=== PATIENT | male | born 1930 | race Caucasian/White ===

== ENCOUNTER 2016-10-03 10:07 | Observation (INO) | payer MEDICARE, OTHER ==
[~2016-10-03] VITALS: Ht 180.3 cm; Wt 76.4 kg
[~2016-10-03 10:07] MED LIST: ASPI-1012 PO; ATOR20TA PO; CAR120CD PO; CITA10TA14 PO; COU5 PO; COZ50 PO
[2016-10-03 10:09] VITALS: BP 117/83; RESP 15
--- NOTE | 2016-10-03 10:27 | ED.REPORT ---
HPI-Trauma Minor / Fall Date of Service Oct 03, 2016 ED Provider: Darren Sharpe MD Pt is an 86 year old male with a history of CAD and HTN who presents to the ED with concerns for continued left hip pain after falling into his chair a couple of days ago. Pt reports that he was working in his garage when he fell backwards into his chair, he denies any trauma to his head or loss of consciousness. His family member reports that he tried to "tough it out" and didn't get it checked out. Pt was then unable to get out of bed this morning due to continued hip pain. He reports a recent cough,but no other illness. Nursing Notes Stated Complaint: FALL AT HOME - HIP PAIN Chief Complaint: Multiple Trauma/Fall Nursing Notes Reviewed: Yes Allergies: Coded Allergies: hydromorphone (Verified Allergy, Severe, 01/17/16) lisinopril (Verified Allergy, Mild, cough, 01/17/16) Scheduled Aspirin-Expunged Drug, Do Not Renew! (Ecotrin-Expunged Drug, Do Not Renew!) 81 Mg Tabec 81 MG PO DAILY Atorvastatin (Lipitor) 20 Mg Tablet 40 MG PO HS Diltiazem-Expunged Drug, Do Not Renew! (Diltiazem CD-Expunged Drug, Do Not Renew !) 120 Mg Capsule 120 MG PO DAILY 24 HOUR DOSAGE FORM Losartan-Expunged Drug, Do Not Renew! (Losartan-Expunged Drug, Do Not Renew!) 50 Mg Tablet 50 MG PO DAILY Warfarin Inactive Drug Do Not Use (Coumadin Inactive Drug Do Not Use) 5 Mg Tablet 5 MG PO 17 1700 (5 PM) DAILY Miscellaneous Medications Citalopram-Expunged Drug, Do Not Renew! (Citalopram-Expunged Drug, Do Not Renew! ) 10 Mg Tablet 10 MG PO General Time Seen by MD: 10:20 Chief Complaint Fall Hx Obtained From: Patient, Spouse, Daughter Arrived By: Walk-in Onset Occurred: Yesterday Symptom Duration: Since onset Location: Hip left Quality: Painful Severity: Current: Mild Severity: Maximum: Moderate Similar Sx Previous: Yes Past Medical History Past Medical History Notes: PCP: Dr. Murillo Past Medical History Reports: Cancer, Coronary artery disease, Hypertension Reports: Atrial fibrillation, Depression Past Surgical History CABG Shoulder surgery Reports: Pacemaker insertion Smoking History Former Smoker Social History Alcohol Use: "Social" Drug Use: Denies drug use Other Social History: Good social support, Ambulatory Status Independent Review of Systems Constitutional: Denies: Chills, Fever, Malaise, Weakness - generalized Respiratory: Denies: Non-productive cough, Shortness of breath, Wheezing Musculoskeletal: Reports: Extremity pain, Joint pain, Denies: Back pain, Neck pain Skin: Denies Bruising, Denies Diaphoresis Neurologic: Denies: Change LOC, Dizziness, Headache, Syncope, Weakness Complete sys rev & neg: except as marked. Physical Exam Initial Vital Signs Vital Signs (First) Date Time Temp Pulse Resp B/P Pulse Ox O2 Delivery O2 Flow Rate FiO2 10/03/16 10:09 37.2 15 117/83 10/03/16 11:04 71 96 Room Air Initial VS: Reviewed Head / Eyes: Atraumatic, Normocephalic, PERRL ENT: Mucous membranes moist, Conjunctiva normal, No scleral icterus Respiratory: Breath sounds normal, Clear to auscultation, No respiratory distress Cardiovascular: Regular rate & rhythm, Heart sounds normal, Intact distal pulses Abdomen / GI: Soft, Non-tender, No guarding, No rebound, No distention Skin: Warm, Dry, No cyanosis Neurologic: Alert, Oriented, Nonfocal Psychiatric: Mood/affect normal, Behavior normal, Normal thought content General/Constitutional: Awake, Alert, Well appearing, Well nourished, Cooperative Neck: Atraumatic, Supple, Full range of motion Lower Extremity / Pelvis / MS: No deformity, Neurologic intact, Vascular intact , Pelvis stable Tender about the left sacral iliac joint Interpretation & Diagnostics Lab Results Interpretation Result Diagram: 10/03/16 1127 10/03/16 1127 Test 10/03/16 11:27 10/03/16 14:40 White Blood Count 5.0th/mm3 (3.8-10.1) Red Blood Count 4.07mil/mm3 (4.40-5.80) Hemoglobin 13.0g/dL (13.8-17.2) Hematocrit 38.7% (41.0-50.0) Mean Corpuscular Volume 95.1fL (81-100) Mean Corpuscular Hemoglobin 31.9pg (27.0-35.0) Mean Corpuscular Hemoglobin Concent 33.6% (32.0-37.0) Red Cell Distribution Width 14.1% (12.3-15.4) Platelet Count 99bil/L (150-400) Neutrophils (%) (Auto) 63.2% (40-74) Lymphocytes (%) (Auto) 29.8% (14-46) Monocytes (%) (Auto) 6.6% (4-12) Eosinophils (%) (Auto) 0% (0-5) Basophils (%) (Auto) 0.2% (0-3) Prothrombin Time 18.7sec (8.1-12.5) Prothromb Time International Ratio 1.73ratio Sodium Level 133mEq/L (134-144) Potassium Level 4.3mEq/L (3.5-5.2) Chloride Level 98mEq/L (97-108) Carbon Dioxide Level 23mmol/L (18-29) Blood Urea Nitrogen 24mg/dL (8-27) Creatinine 1.20mg/dL (0.76-1.27) Estimat Glomerular Filtration Rate 61mL/min (>59) Glucose Level 113mg/dL (60-99) Calcium Level 8.5mg/dL (8.5-10.1) Total Bilirubin 0.3mg/dL (0.0-1.2) Aspartate Amino Transf (AST/SGOT) 43U/L (0-50) Alanine Aminotransferase (ALT/SGPT) 32U/L (0-44) Alkaline Phosphatase 77U/L (25-160) Total Protein 6.9g/dL (6.4-8.4) Albumin 3.2g/dL (3.4-5.0) Hold Olguin Top Tube Received (Received) ECG Interpretation ECG Interpretation: atrual-sensed ventricular paced rhythm - 70 Unchanged from prior Time: 11:19 Interpreted by: ED physician X-Ray Chest Interpretation Chest Xray Interpretation: IMPRESSION: 1. Probable atelectasis or scarring the left lung base. No definite acute cardiopulmonary disease. Dictated by: Levi Lang M.D. on 10/03/2016 at 11:51 Interpretation / Wet Read by: Interpret - Radiologist X-Ray Interpretation Xray Interpretation: IMPRESSION: 1. No definite displaced fracture. 2. Indistinct sclerotic osseous lesions are present possible metastatic disease. Findings discussed with Dr. Sharpe on 10/03/16 at 11:45 AM. Dictated by: Levi Lang M.D. on 10/03/2016 at 11:49 Study Performed: Sacrum and Coccyx Interpretation / Wet Read by: Interpret - Radiologist, Néstor w radiologist Xray Interpretation: IMPRESSION: 1. No fracture or subluxation. 2. Heterogeneous appearance of the visualized osseous structures with indistinct sclerotic regions. Although the findings may represent heterogeneous osteopenia, an infiltrative process such as metastatic disease may have this appearance. Recommend correlation clinically and further evaluation with bone scan if indicated. Findings discussed with Dr. Sharpe on 10/03/16 at 11:45 AM. Dictated by: Levi Lang M.D. on 10/03/2016 at 11:47 X-Ray Ordered: Pelvis Interpretation / Wet Read by: Interpret - Radiologist, Néstor w radiologist CT Head Interpretation IMPRESSION: 1. Region of hypoattenuation involving the left temporal lobe within the middle cranial fossa. The finding is suggestive of nonspecific edema in the differential includes an underlying mass lesion or encephalitis among other etiologies. Given patient's history of prostate cancer as well as a pacemaker, recommend further evaluation with a contrast enhanced head CT if clinically indicated. Findings discussed with Dr. Sharpe on 10/03/16 at 2:35 PM. Dictated by: Levi Lang M.D. on 10/03/2016 at 14:41 Interpretation / Wet Read by: Interpret - Radiologist CT Abd / Pelvis Interpretation IMPRESSION: 1. No definite acute traumatic abnormality identified in the abdomen or pelvis. 2. Nonspecific scattered sclerotic lesions demonstrated in the bony pelvis as described. The findings may reflect heterogeneous demineralization related to osteopenia as well as bone islands but given patient's history of prostate cancer may also reflect blastic metastatic disease. Recommend followup evaluation with a bone scan. 3. No evidence of intraperitoneal metastatic disease in the abdomen or pelvis. 4. Bilateral sclerosis of the femoral heads. The findings are nonspecific but raise the possibility of avascular necrosis. No evidence of articular surface collapse. 5. Cholelithiasis with mild gallbladder wall thickening. The findings may represent developing cholecystitis in the appropriate clinical context. Dictated by: Levi Lang M.D. on 10/03/2016 at 13:20 Study type: Abdom CT oral contrast Interpretation / Wet Read by: Interpret - Radiologist Re-Eval/Medical Decision Source of Hx: Old records Re-Evaluation/Progress #1: Time of Eval: 11:46 Re-Evaluation/Progress Note: Pt is rechecked and informed of his x-ray results and the plan to obtain a CT scan of his hip at this time. He understands and agrees, all questions are addressed. Re-Evaluation/Progress #2: Time of Eval: 13:05 Re-Evaluation/Progress Note: Pt's family report that they are noticing that his speech is mildly slurred. Full NIH score conducted - 0. Consultation : Referral / Consult Name: Immanuel Thomas MD Consulted With: Hospitalist Call Returned at: 14:30 Architectural Practice Manager: Will see patient, Agrees with plan, Accepts admit Counseled Regarding: Diagnosis, Lab results, Need for admission Discharge & Departure Impression: Primary Impression: Bone lesion Additional Impressions: Lumbosacral pain Brain lesion Disposition: ADMITTED TO HOSPITAL Discharge Condition All VS Reviewed: Yes Condition: Stable Referrals: Gonzalez Murillo DO (PCP) Scribe Attestation Portions of this note were transcribed by Josefa Sadler. I, Dr. Sharpe personally performed the history, physical exam and medical decision-making; I reviewed and confirmed the accuracy of the information in the transcribed note. Signed by: Josefa Boyle, 10/03/2016 [id number] copies to: Gonzalez Murillo Kirk H MD Oct 03, 2016 10:27 SHANA SADLER Oct 03, 2016 10:32
[2016-10-03 11:04] VITALS: PULSE 71; O2SAT 96
[2016-10-03 11:38] LABS: BASOPHILS % (AUTO) 0.2 % (0-3); EOSINOPHILS % (AUTO) 0 % (0-5); MONOCYTES % (AUTO) 6.6 % (4-12); Mean Corpuscular Hemoglobin 31.9 pg (27.0-35.0); Mean Corpuscular Volume 95.1 fL (81-100); NEUTROPHILS % (AUTO) 63.2 % (40-74); Platelet Count 99 bil/L (150-400)
--- NOTE | 2016-10-03 11:51 | DRSVH ---
PROCEDURE: X-RAY PELVIS, ONE OR TWO VIEWS ([id number]) INDICATIONS: trauma TECHNIQUE: Single view of the pelvis acquired. COMPARISON: [facility], CR, XR SACRUM AND COCCYX 3VW, 10/03/2016, 10:39. FINDINGS: Bones: No fractures or dislocations. There is heterogeneous appearance of the visualized osseous st ructures with indistinct relatively sclerotic regions. Soft tissues: Visualized bowel gas pattern is normal. No suspicious soft tissue calcifications. IMPRESSION: 1. No fracture or subluxation. 2. Heterogeneous appearance of the visualized osseous structures with indistinct sclerotic regions. Although the findings may represent heterogeneous osteopenia, an infiltrative process such as metast atic disease may have this appearance. Recommend correlation clinically and further evaluation with bone scan if indicated. Findings discussed with Dr. Sharpe on 10/03/16 at 11:45 AM. Dictated by: Levi Lang M.D. on 10/03/2016 at 11:47 Approved by: Levi Lang M.D. on 10/03/2016 at 11:47
--- NOTE | 2016-10-03 11:53 | DRSVH ---
PROCEDURE: X-RAY SACRUM AND COCCYX, MINIMUM THREE VIEWS ([id number]) INDICATIONS: trauma TECHNIQUE: 3 views of the sacrum and coccyx acquired. COMPARISON: [facility], CR, XR PELVIS 1 OR 2VW, 10/03/2016, 10:39. FINDINGS: Bones: No definite fractures or dislocations. There a few scattered indistinct sclerotic lesions in cluding within the inferior pubic rami bilaterally. Visualized lumbar spine demonstrates anterolisth esis of the presumed L4-5 level. Soft tissues: Visualized bowel gas pattern is normal. IMPRESSION: 1. No definite displaced fracture. 2. Indistinct sclerotic osseous lesions are present possible metastatic disease. Findings discussed with Dr. Sharpe on 10/03/16 at 11:45 AM. Dictated by: Levi Lang M.D. on 10/03/2016 at 11:49 Approved by: Levi Lang M.D. on 10/03/2016 at 11:49
--- NOTE | 2016-10-03 11:55 | DRSVH ---
PROCEDURE: X-RAY CHEST ONE VIEW, PORTABLE ([id number]) INDICATIONS: trauma TECHNIQUE: One view of the chest was acquired. COMPARISON: [facility], CR, XR CHEST 1VW (PORTABLE), 01/17/2016, 15:01. FINDINGS: Surgical changes and devices: Left chest wall dual-lead pacemaker are stable in position. Postsurgic al changes are again demonstrated in the mediastinum consistent with prior CABG and prosthetic valve placement. Lungs and pleura: No pleural effusions or pneumothorax. There is mild linear scarring or atelectasi s within the left lung base. No acute consolidation. Mediastinum: Mediastinal contours appear normal. Heart size is normal. Bones and chest wall: No suspicious bony lesions. Overlying soft tissues appear unremarkable. IMPRESSION: 1. Probable atelectasis or scarring the left lung base. No definite acute cardiopulmonary disease. Dictated by: Levi Lang M.D. on 10/03/2016 at 11:51 Approved by: Levi Lang M.D. on 10/03/2016 at 11:51
[2016-10-03 12:18] LABS: INR 1.73 ratio
--- NOTE | 2016-10-03 13:21 | DRSVH ---
PROCEDURE: CT ABDOMEN AND PELVIS WITH CONTRAST TRAUMA ([id number]) INDICATIONS: Left lumbosacral pain status post fall. Patient also with history of prostate cancer w ith possible sclerotic lesions on x-ray. TECHNIQUE: After the administration of intravenous contrast, 5 mm thick sections acquired from the diaphragms to the symphysis. 5 mm thick coronal and sagittal reformats were acquired. Optional 10-minute delayed imaging may be performed from the kidneys to the bladder. For radiation dose reduction, the followi ng was used: automated exposure control, adjustment of mA and/or kV according to patient size. COMPARISON: [facility], CR, XR PELVIS 1 OR 2VW, 10/03/2016, 10:39. FINDINGS: Image quality: Excellent. ABDOMEN: Lung bases: There is mild dependent atelectasis. Heart size is normal. There are pacemaker leads de monstrated extending into the right atrium and right ventricle. No pericardial effusion. Inferior r ibs are intact. No basal pleural effusions or pneumothorax. Solid organs: No focal hepatic lesions identified. The spleen is enlarged, measuring up to 15.8 cm. No hepatic or splenic lacerations. There is a large peripherally calcified gallstone within the ga llbladder measuring up to 2.5 cm. There is mild gallbladder wall thickening but no pericholecystic f luid. Biliary system is non-dilated. There is mild fatty atrophy of the pancreas. No adrenal hemat omas. Both kidneys enhance normally, without hydronephrosis or lacerations. There bilateral renal c ysts. Peritoneum and bowel: No free fluid or air. Small and large bowel loops demonstrate normal wall thi ckness and caliber. There is chronic diverticulosis without acute diverticulitis. Nodes and vessels: No retroperitoneal or mesenteric adenopathy. Aorta and inferior vena cava are no rmal in size and enhancement. Miscellaneous: No ventral hernias. PELVIS: Genitourinary: Bladder wall thickness is normal. There is heterogeneous enlargement of the prostate . No extraprostatic mass extension identified. Miscellaneous: There is small fat containing bilateral inguinal hernias. No inguinal adenopathy. Bones: There is osteopenia. Pelvic ring and hip joints appear intact. No vertebral compression fra ctures. There is grade 1 anterolisthesis of L4 on L5 without pars defects. There is a small ovoid sclerotic focus within the right acetabulum measuring up to 0.7 cm which is nonspecific but suggestiv e of a bone island. A subtle or a focus within the right ischium posteriorly measuring up to 0.7 cm and is also nonspecific. There are small areas of indistinct sclerosis within the ischial bones bilat erally along the posterior inferior pubic rami. There is increased sclerosis bilaterally within the femoral heads without subcortical curvilinear scl erotic lines or areas of articular surface collapse. IMPRESSION: 1. No definite acute traumatic abnormality identified in the abdomen or pelvis. 2. Nonspecific scattered sclerotic lesions demonstrated in the bony pelvis as described. The findin gs may reflect heterogeneous demineralization related to osteopenia as well as bone islands but given patient's history of prostate cancer may also reflect blastic metastatic disease. Recommend followu p evaluation with a bone scan. 3. No evidence of intraperitoneal metastatic disease in the abdomen or pelvis. 4. Bilateral sclerosis of the femoral heads. The findings are nonspecific but raise the possibility of avascular necrosis. No evidence of articular surface collapse. 5. Cholelithiasis with mild gallbladder wall thickening. The findings may represent developing chol ecystitis in the appropriate clinical context. Dictated by: Levi Lang M.D. on 10/03/2016 at 13:20 Approved by: Levi Lang M.D. on 10/03/2016 at 13:20
[2016-10-03] MEDS ORDERED: Ondansetron 2 mg/mL 2 mL Inj IVPUSH PRN (14:35)
[2016-10-03] MEDS ORDERED: Alum-Mag Hydrox-Simeth 30 mL Suspension PO PRN (14:35)
--- NOTE | 2016-10-03 14:43 | DRSVH ---
PROCEDURE: CT BRAIN WITHOUT CONTRAST ([id number]) INDICATIONS: slurred speech TECHNIQUE: Noncontrast 4.5 mm thick angled axial sections acquired from the foramen magnum to the vertex, with c oronal reformats. COMPARISON: [facility], CT, BRAIN W/O CONTRAST, 12/21/2013, 17:13. FINDINGS: Image quality: Excellent. CSF spaces: Basal cisterns are patent. No extra-axial fluid collections. Ventricles are normal in size and shape. Brain: There is mild residual hyperdensity of the vessels secondary to recent intravenous contrast ad ministration. No hematoma collections or mass effect. There is a region of cortical and subcortical hypoattenuation involving the left temporal lobe within the middle cranial fossa. Skull and face: Calvarium and visualized facial bones appear intact, without suspicious lesions. Sinuses: Visualized sinuses and mastoids are clear. IMPRESSION: 1. Region of hypoattenuation involving the left temporal lobe within the middle cranial fossa. The finding is suggestive of nonspecific edema in the differential includes an underlying mass lesion or encephalitis among other etiologies. Given patient's history of prostate cancer as well as a pacemak er, recommend further evaluation with a contrast enhanced head CT if clinically indicated. Findings discussed with Dr. Sharpe on 10/03/16 at 2:35 PM. Dictated by: Levi Lang M.D. on 10/03/2016 at 14:41 Approved by: Levi Lang M.D. on 10/03/2016 at 14:41
[2016-10-03] MEDS ORDERED: Polyethylene Glycol (PEG) 17 Gm Powder PO PRN (15:00)
[2016-10-03 15:27] VITALS: BP 127/65; PULSE 79; RESP 20
[2016-10-03 15:29] LABS: APPEARANCE,URINE CLEAR (CLEAR,HAZY); COLOR,URINE YELLOW (YELLOW); OCCULT BLOOD,URINE SMALL (NEGATIVE); UROBILINOGEN,URINE NORMAL (NORMAL)
--- NOTE | 2016-10-03 15:29 | PCM.PHAPRO ---
Progress Date of Service: Oct 03, 2016 Warfarin Management Per Pharmacy: Indication: Stroke prophylaxis as patient has atrial fibrillation ([id number]- Vasc = 3) Goal INR: 2-3 Home Dose: Warfarin 5 mg PO daily? RN to clarify Labs: Hct: 38.7 Plt: 99 INR: 1.73 Drug Interactions: None Antiplatelets: ASA 81 mg PO daily, Celexa 10 mg PO daily (antiplatelet) Recommendation: Warfarin 6 mg PO x 1 tonight at 1700 Pharmacy to continue to monitor for signs/symptoms of bleeding. Thank You, Laura Joshua, Pharm D. Laura Joshua Oct 03, 2016 15:29
[2016-10-03 15:57] VITALS: BP 129/66; PULSE 67; RESP 18; O2SAT 95
[2016-10-03] MEDS ORDERED: LOSA50TA37 PO (16:37)
[2016-10-03] MEDS ORDERED: DILT-17 PO (16:37)
[2016-10-03] MEDS ORDERED: OFLO5DRO9 LEFT_EYE (16:37)
[2016-10-03] MEDS ORDERED: DILT120C52 PO (16:37)
[2016-10-03] MEDS ORDERED: ASPI-973 PO (16:37)
[2016-10-03] MEDS ORDERED: WARF5TAB7 PO (16:37)
[2016-10-03] MEDS ORDERED: CITA10TA9 PO (16:37)
--- NOTE | 2016-10-03 16:52 | PCM.HPMED ---
Subjective Date of Service Oct 03, 2016 Primary Provider: Admitting Physician: Immanuel Thomas MD Primary Care Physician: Gonzalez Murillo DO Attending Physician: Immanuel Thomas MD Admit Status: From the Emergency Department Chief Complaint: hip pain after fall History of Present Illness: 86 year old male with h/o CAD, HTN, a fib, presented to ED with c/o worsening left hip pain. As per family member, he fell into his chair before two days and then was complaiing of left hip which was mild until this morning while working in garage he again fell backward into his chair. He denies any trauma to his head or loss of consciousness. As per family members it was difficult for him to get up from the floor. He also reports of recent cough but denies fever, chest pain, chills. He also had difficulty in walking because of balance issues after fall. In ED, he was afebrile, normotensive, saturating 95% on room air. He underwent CT brain which revealed "hypoattenuation involving the left temporal lobe. CT pelvis revealed non specific scattered lesions in the bony pelvis. Pt seen and examined bed side. He is not in acute distress. c/o left hip pain. Denies chest pain, shortness of breath. Allergies Coded Allergies: hydromorphone (Verified Allergy, Severe, 01/17/16) lisinopril (Verified Allergy, Mild, cough, 01/17/16) PMH Coronary artery disease, Hypertension Atrial fibrillation, Depression Surgical History CABG Pacemaker insertion Shoulder surgery Social History Hx Alcohol Use: Yes (occasionally) Hx Substance Use: No Smoking Status: Former Smoker Exam Vital Signs Vital Sign - Last Date Time Temp Pulse Resp B/P Pulse Ox O2 Delivery O2 Flow Rate FiO2 10/03/16 11:04 71 96 Room Air 10/03/16 10:09 37.2 15 117/83 Exam General/Constitutional: Awake, Alert, Well appearing, Well nourished, Cooperative Head / Eyes: Atraumatic, Normocephalic, PERRL ENT: Mucous membranes moist, Conjunctiva normal, No scleral icterus Neck: Atraumatic, Supple, Full range of motion Respiratory: Breath sounds normal, Clear to auscultation, No respiratory distress Cardiovascular: Regular rate & rhythm, Heart sounds normal, Intact distal pulses Abdomen / GI: Soft, Non-tender, No guarding, No rebound, No distention Skin: Warm, Dry, No cyanosis Neurologic: Alert, Oriented, Nonfocal. Psychiatric: Mood/affect normal, Behavior normal, Normal thought content Lower Extremity / Pelvis / MS: No deformity, Neurologic intact, Vascular intact. Left sacro-iliac tenderness Lab and Diagnostics Result Diagram: 10/03/16 1127 10/03/16 1127 X-Rays, CTs and MRIs XR pelvis (10/03/2016): 1. No fracture or subluxation. 2. Heterogeneous appearance of the visualized osseous structures with indistinct sclerotic regions. Although the findings may represent heterogeneous osteopenia, an infiltrative process such as metastatic disease may have this appearance. Recommend correlation clinically and further evaluation with bone scan if indicated. CT Brain (10/03/2016): 1. Region of hypoattenuation involving the left temporal lobe within the middle cranial fossa. The finding is suggestive of nonspecific edema in the differential includes an underlying mass lesion or encephalitis among other etiologies. Given patient's history of prostate cancer as well as a pacemaker, recommend further evaluation with a contrast enhanced head CT if clinically indicated. Chest X-ray (10/03/2016): Probable atelectasis or scarring the left lung base. No definite acute cardiopulmonary disease. CT Pelvis (10/03/2016): IMPRESSION: 1. No definite acute traumatic abnormality identified in the abdomen or pelvis. 2. Nonspecific scattered sclerotic lesions demonstrated in the bony pelvis as described. The findings may reflect heterogeneous demineralization related to osteopenia as well as bone islands but given patient's history of prostate cancer may also reflect blastic metastatic disease. Recommend followup evaluation with a bone scan. 3. No evidence of intraperitoneal metastatic disease in the abdomen or pelvis. 4. Bilateral sclerosis of the femoral heads. The findings are nonspecific but raise the possibility of avascular necrosis. No evidence of articular surface collapse. 5. Cholelithiasis with mild gallbladder wall thickening. The findings may represent developing cholecystitis in the appropriate clinical context. Assessment & Plan 86 year male with h/o HTN, A fib on coumadin, CAD presented with left hip pain and balance issues after fall found to have non specific sclerotic lesions in pelvis and left temporal lesion. s/p fall - No evidence of fractures on CT scan - CT pelvis: non specific sclerotic pelvic lesions - PET bone scan to rule to metastasis as he has history of prostate cancer. This can't be done as inpatient. ? Stroke - balance issues can be brain stem stroke - MRI is contraindicated due to pacemaker implantation - Will do CT brain with contrast tomorrow as to avoid giving contrast again as he already received contrast today for CT pelvis - Physical therapy Hypertension - Will controlled - Will hold antihypertensives in setting of possible stroke. Atrial fibrillation - on coumadin - on [id number] mg - Will resume it as per INR - Dose to be adjusted by pharmacist GI ppx: Not needed. Eating oral diet DVT ppx: on coumadin Status: To be admitted as an observation status due to likely discharge from the hospital within two days. GI Prophylaxis: Not indicated VTE Prophylaxis: Theraputic Anticoag with Warfarin Resuscitation Status: CPR: Attempt Resuscitation Immanuel Thomas MD Oct 03, 2016 14:57
--- NOTE | 2016-10-03 17:45 | NUR ---
Admit to [facility] Patient arrived to floor on ER [facility], was transferred over to hospital bed with slideboard and 3 person assist. C/o pain with movement, mainly on Left side. Declined pain medications. Alert and oriented, [place] with hearing aids in place. Unable to sit on edge of bed without assistance. [place] locked. Using urinal. [place] alarm in place-Hx of falls. Will continue to monitor.
[2016-10-03] MEDS: Diltiazem CD 120 mg ER24 Capsule PO SCH (18:21)
--- NOTE | 2016-10-03 19:29 | NUR ---
URINARY RETENTION Only able to void 50ml in urinal, PVR showed > 460ml Received order to straight cath x1 and wait to see if patient could void on his own. Report passed onto next shift nurse.
[2016-10-03 21:30] VITALS: BP 124/65; PULSE 69; RESP 18; O2SAT 97
--- NOTE | 2016-10-04 00:16 | NUR ---
; voided 125cc per urinal at approx. 2100.
--- NOTE | 2016-10-04 03:48 | NUR ---
; voided 600cc per urinal.
[2016-10-04 06:15] VITALS: BP 126/56; PULSE 71; RESP 16; O2SAT 94
[2016-10-04 07:53] LABS: Mean Corpuscular Hemoglobin 31.7 pg (27.0-35.0); Mean Corpuscular Volume 94.8 fL (81-100)
--- NOTE | 2016-10-04 09:06 | DRSVH ---
PROCEDURE: CT BRAIN WITH CONTRAST INDICATIONS: brain lesion, pacemaker in place TECHNIQUE: 4.5 mm thick angled axial sections acquired from the foramen magnum to the vertex after the administr ation of intravenous contrast, with coronal reformats. COMPARISON: [facility], MR, STROKE PROTOCOL (PNL), 12/22/2013, 12:30. [facility], CR, XR CHEST 1VW (PORTABLE), 10/03/2016, 10:39. [facility], CT, CT BRAIN WO CON, , 14:15. FINDINGS: Image quality: Excellent. CSF Spaces: Basal cisterns are patent. No extra-axial fluid collections. Ventricles are normal in size and shape. Brain: No midline shift. No intracranial bleeds or new masses. At the left parafalcine posterior f rontal convexity region (series 4 image 27) a calcified structure previously identified by MR scannin g 12/22/13 is again seen without interchange agent time considering differences in technique. Additionally, a homogeneously enhancing presumed meningioma at the left posterior cranial fossa dorsal to the masto id air cell region is again noted, also present on prior MR scanning, and also without appreciable ch geno from the prior 2013 MRI. No abnormal intracranial enhancement or abnormal reduced enhancement, otherwise.. Hammonds-white interface appears normal. Skull and face: Calvarium and visualized facial bones appear intact, without suspicious lesions. Sinuses: Visualized sinuses and mastoids are clear. IMPRESSION: The prior noncontrast CT scanning head raise concern for presence of left temporal brain parenchymal hypoattenuation as can be seen in the setting of encephalitis and some strokes, and also conceivably associated with an infiltrative neoplasm. However, currently back area of the brain pare nchyma appears entirely normal. The prior MRI from December 2013 that identified to presumed meningiomas, again seen by this study witho ut change in size over time. One is predominantly calcified and at the left parafalcine posterior fr ontal convexity almost at the midline, almost at the skull vertex. The second is located at the left posterior cranial fossa producing a small degree of mass effect against the lateral border of the le ft mid cerebellum. Prior MR scanning was possible in 2013 presumably due to absence of the currently present a cardiac p acemaking device and leads. Dictated by: Janak Kaur M.D. on 10/04/2016 at 9:05 Approved by: Janak Kaur M.D. on 10/04/2016 at 9:05
[2016-10-04] MEDS: Diltiazem CD 120 mg ER24 Capsule PO SCH (09:15)
--- NOTE | 2016-10-04 09:49 | NUR ---
Evaluation completed. Please go to "Notes" then click on "Assessments and Notes" (bottom left corner of screen). Then select appropriate discipline tab on top of screen.
[2016-10-04 10:39] LABS: INR 1.61 ratio
[2016-10-04 10:49] VITALS: BP 98/60; PULSE 70; RESP 18; O2SAT 96
--- NOTE | 2016-10-04 11:03 | PCM.PNMED ---
Subjective Date of Service Oct 04, 2016 Exam Vital Signs Vital Sign - Last Date Time Temp Pulse Resp B/P Pulse Ox O2 Delivery O2 Flow Rate FiO2 10/04/16 06:15 37.7 71 16 126/56 94 Room Air Intake and Output 10/03/16 10/03/16 10/04/16 Cumulative From/Thru 15:00 23:00 07:00 10/03/16 10:09 - 10/04/16 06:40 Intake Total 120 ml 600 ml 720 ml Output Total 270 ml 725 ml 995 ml Balance -150 ml -125 ml -275 ml Intake Oral 120 ml 600 ml 720 ml Output Urine Total 270 ml 725 ml 995 ml Exam Constitutional: Elderly man in no acute distress sitting in chair by bedside. Head: Normocephalic atraumatic Chest: Clear to auscultation Cor: Regular rate and rhythm S1-S2 Abdomen: Soft nontender bowel sounds present Extremities: No pedal edema no tenderness to palpation over the back of his left hip. IVs and Medications Medications Reviewed: Medications were reviewed in detail Lab and Diagnostics Result Diagram: 10/04/1633 10/04/1633 X-Rays, CTs and MRIs XR pelvis (10/03/2016): 1. No fracture or subluxation. 2. Heterogeneous appearance of the visualized osseous structures with indistinct sclerotic regions. Although the findings may represent heterogeneous osteopenia, an infiltrative process such as metastatic disease may have this appearance. Recommend correlation clinically and further evaluation with bone scan if indicated. CT Brain (10/03/2016): 1. Region of hypoattenuation involving the left temporal lobe within the middle cranial fossa. The finding is suggestive of nonspecific edema in the differential includes an underlying mass lesion or encephalitis among other etiologies. Given patient's history of prostate cancer as well as a pacemaker, recommend further evaluation with a contrast enhanced head CT if clinically indicated. Chest X-ray (10/03/2016): Probable atelectasis or scarring the left lung base. No definite acute cardiopulmonary disease. CT Pelvis (10/03/2016): IMPRESSION: 1. No definite acute traumatic abnormality identified in the abdomen or pelvis. 2. Nonspecific scattered sclerotic lesions demonstrated in the bony pelvis as described. The findings may reflect heterogeneous demineralization related to osteopenia as well as bone islands but given patient's history of prostate cancer may also reflect blastic metastatic disease. Recommend followup evaluation with a bone scan. 3. No evidence of intraperitoneal metastatic disease in the abdomen or pelvis. 4. Bilateral sclerosis of the femoral heads. The findings are nonspecific but raise the possibility of avascular necrosis. No evidence of articular surface collapse. 5. Cholelithiasis with mild gallbladder wall thickening. The findings may represent developing cholecystitis in the appropriate clinical context.Patient Name: ANCA ZUNIGA MR#: [id number] Location: [facility] [place] Ordering Phys: Immanuel Thomas MD Date of Service: 10/04/16 0800 PROCEDURE: CT BRAIN WITH CONTRAST INDICATIONS: brain lesion, pacemaker in place TECHNIQUE: 4.5 mm thick angled axial sections acquired from the foramen magnum to the vertex after the administration of intravenous contrast, with coronal reformats. COMPARISON: [facility], MR, STROKE PROTOCOL (PNL), 12/22/2013, 12: 30. [facility], CR, XR CHEST 1VW (PORTABLE), 10/03/2016, 10:39. [facility], CT, CT BRAIN WO CON, 10/03/2016, 14:15. FINDINGS: Image quality: Excellent. CSF Spaces: Basal cisterns are patent. No extra-axial fluid collections. Ventricles are normal in size and shape. Brain: No midline shift. No intracranial bleeds or new masses. At the left parafalcine posterior frontal convexity region (series 4 image 27) a calcified structure previously identified by MR scanning 12/22/13 is again seen without change management specialist time considering differences in technique. Additionally, a homogeneously enhancing presumed meningioma at the left posterior cranial fossa dorsal to the mastoid air cell region is again noted, also present on prior MR scanning, and also without appreciable change from the prior 2014 MRI. No abnormal intracranial enhancement or abnormal reduced enhancement, otherwise.. Hammonds-white interface appears normal. Skull and face: Calvarium and visualized facial bones appear intact, without suspicious lesions. Sinuses: Visualized sinuses and mastoids are clear. IMPRESSION: The prior noncontrast CT scanning head raise concern for presence of left temporal brain parenchymal hypoattenuation as can be seen in the setting of encephalitis and some strokes, and also conceivably associated with an infiltrative neoplasm. However, currently back area of the brain parenchyma appears entirely normal. The prior MRI from December 2013 that identified to presumed meningiomas, again seen by this study without change in size over time. One is predominantly calcified and at the left parafalcine posterior frontal convexity almost at the midline, almost at the skull vertex. The second is located at the left posterior cranial fossa producing a small degree of mass effect against the lateral border of the left mid cerebellum. Prior MR scanning was possible in 2013 presumably due to absence of the currently present a cardiac pacemaking device and leads. Dictated by: Janak Kaur M.D. on 10/04/2016 at 9:05 Approved by: Janak Kaur M.D. on 10/04/2016 at 9:05 Assessment & Plan 86 year male with h/o HTN, A fib on coumadin, CAD presented with left hip pain and balance issues after fall found to have non specific sclerotic lesions in pelvis and left temporal lesion. s/p fall - No evidence of fractures on CT scan - CT pelvis: non specific sclerotic pelvic lesions - PET bone scan to rule to metastasis as he has history of prostate cancer. This can't be done as inpatient. -We will proceed with checking a bone scan to further investigate - Check PSA given past history of prostate carcinoma -Continue with physical therapy ? Stroke - balance issues can be brain stem stroke - MRI is contraindicated due to pacemaker implantation - Will do CT brain with contrast tomorrow on October 04 as to avoid giving contrast again as he already received contrast today for CT pelvis -CT of brain with contrast was obtained today October 04 and see attached report : IMPRESSION: The prior noncontrast CT scanning head raise concern for presence of left temporal brain parenchymal hypoattenuation as can be seen in the setting of encephalitis and some strokes, and also conceivably associated with an infiltrative neoplasm. However, currently back area of the brain parenchyma appears entirely normal. The prior MRI from December 2013 that identified to presumed meningiomas, again seen by this study without change in size over time. One is predominantly calcified and at the left parafalcine posterior frontal convexity almost at the midline, almost at the skull vertex. The second is located at the left posterior cranial fossa producing a small degree of mass effect against the lateral border of the left mid cerebellum. Prior MR scanning was possible in 2013 presumably due to absence of the currently present a cardiac pacemaking device and leads. Dictated by: Janak Kaur M.D. on 10/04/2016 at 9:05 Approved by: Janak Kaur M.D. on 10/04/2016 at 9:05 - Physical therapy Hypertension - Will controlled - Will hold antihypertensives in setting of possible stroke. Atrial fibrillation - on coumadin - on [id number] mg - Will resume it as per INR - Dose to be adjusted by pharmacist GI ppx: Not needed. Eating oral diet DVT ppx: on coumadin Status: To be admitted as an observation status due to likely discharge from the hospital within two days. GI Prophylaxis: Not indicated VTE Prophylaxis: Theraputic Anticoag with Warfarin VTE Mechanical Devices: Intermittant Pneumatic CD Resuscitation Status: CPR: Attempt Resuscitation Time spent 30 minutes Tawny Giron MD Oct 04, 2016 11:03
--- NOTE | 2016-10-04 11:35 | NUR ---
Social Work: Initial Assessment D: Per EMR review, pt is an 86 year old male admitted for blastic lesions in pelvis, cannot ambulate. Pt is Medicare with [employer] Supplement; Pt has no LTC insurance or VA benefits. PCP is Gonzalez Murillo MD. NOK is Janeen Argueta, , . Readmit score is moderate, 3/8. Advanced directives not completed- MECHANICAL TECHNOLOGIST provided information to pt. MECHANICAL TECHNOLOGIST met with pt at bedside. Sw role explained. See initial assessment. Pt lives in [place] with his spouse. He is I at baseline and uses no DME. Pt reports a recent fall but otherwise has been I. Pt states he lives in a single story home with a ramp to enter. Pt continues to drive and has never had HH or skilled rehab. Pt worked with PT and ambulated I for 75 feet; current recommendation is for discharge home with outpatient PT. MECHANICAL TECHNOLOGIST reviewed this recommendation with pt; he agrees with this and states that he does not feel that he has any sw needs at this time. Pt is eager to go home and states his or family will transport him home whenever ready. A: Pt who is I at baseline with a recent fall and some weakness. P: Anticipate pt to discharge home via POV and no sw needs; MECHANICAL TECHNOLOGIST to continue to follow and assist if needs arise. ALFA Hathaway Addendum: 10/04/16 at 1141 by JEWEL ASHRAF SS Amended: Links added.
--- NOTE | 2016-10-04 15:09 | NUR ---
ACTIVITY/PAIN Patient was able to ambulate in hallway with therapy. Sat in chair for about 4 hrs and transferred back into bed with 1 person assist. C/o spasm pain in L hip that comes on suddenly and goes away with repositioning L leg. Received order for muscle relaxer. Administered muscle relaxer plus PO APAP.
[2016-10-04 16:12] VITALS: BP 139/65; PULSE 73; RESP 18; O2SAT 95
[2016-10-04 21:25] VITALS: BP_SYST 129; BP_SYST 132; BP_DIAS 63; BP_DIAS 97; PULSE 72; PULSE 89; RESP 16; O2SAT 95; O2SAT 99
--- NOTE | 2016-10-05 03:16 | NUR ---
Ambulation Patient up independent with stand by assist from bed to bathroom. Patient tolerated ambulation well and had not complaints of pain. Patient A&Ox3. Patient saline locked and 95% on room air. Patient has dropped hearing aids a couple times this shift. Helped patient put hearing aids in cup with lid to prevent loss if accidentally dropped again.
[2016-10-05 05:10] VITALS: BP 115/61; PULSE 66; RESP 16; O2SAT 94
[2016-10-05 06:47] LABS: INR 1.81 ratio
[2016-10-05] MEDS: Diltiazem CD 120 mg ER24 Capsule PO SCH (07:39)
--- NOTE | 2016-10-05 11:13 | PCM.DIMED ---
Discharge Instructions Date of Service Oct 05, 2016 Dates of Hospitalization Oct 03, 2016 at 14:44 Discharge Diagnosis Discharge Diagnosis Mechanical fall A defibrillation Hypertension CAD Bony lesions, sclerotic pelvic lesions-PET bone scan pending, discharge after bone scan completed Test Results X-Rays, CTs and MRIs XR pelvis (10/03/2016): 1. No fracture or subluxation. 2. Heterogeneous appearance of the visualized osseous structures with indistinct sclerotic regions. Although the findings may represent heterogeneous osteopenia, an infiltrative process such as metastatic disease may have this appearance. Recommend correlation clinically and further evaluation with bone scan if indicated. CT Brain (10/03/2016): 1. Region of hypoattenuation involving the left temporal lobe within the middle cranial fossa. The finding is suggestive of nonspecific edema in the differential includes an underlying mass lesion or encephalitis among other etiologies. Given patient's history of prostate cancer as well as a pacemaker, recommend further evaluation with a contrast enhanced head CT if clinically indicated. Chest X-ray (10/03/2016): Probable atelectasis or scarring the left lung base. No definite acute cardiopulmonary disease. CT Pelvis (10/03/2016): IMPRESSION: 1. No definite acute traumatic abnormality identified in the abdomen or pelvis. 2. Nonspecific scattered sclerotic lesions demonstrated in the bony pelvis as described. The findings may reflect heterogeneous demineralization related to osteopenia as well as bone islands but given patient's history of prostate cancer may also reflect blastic metastatic disease. Recommend followup evaluation with a bone scan. 3. No evidence of intraperitoneal metastatic disease in the abdomen or pelvis. 4. Bilateral sclerosis of the femoral heads. The findings are nonspecific but raise the possibility of avascular necrosis. No evidence of articular surface collapse. 5. Cholelithiasis with mild gallbladder wall thickening. The findings may represent developing cholecystitis in the appropriate clinical context.Patient Name: ANCA ZUNIGA MR#: [id number] Location: [facility] [place] Ordering Phys: Immanuel Thomas MD Date of Service: 10/04/16 0800 PROCEDURE: CT BRAIN WITH CONTRAST INDICATIONS: brain lesion, pacemaker in place TECHNIQUE: 4.5 mm thick angled axial sections acquired from the foramen magnum to the vertex after the administration of intravenous contrast, with coronal reformats. COMPARISON: [facility], , STROKE PROTOCOL (PNL), 12/22/2013, 12: 30. [facility], CR, XR CHEST 1VW (PORTABLE), 10/03/2016, 10:39. [facility], CT, CT BRAIN WO CON, 10/03/2016, 14:15. FINDINGS: Image quality: Excellent. CSF Spaces: Basal cisterns are patent. No extra-axial fluid collections. Ventricles are normal in size and shape. Brain: No midline shift. No intracranial bleeds or new masses. At the left parafalcine posterior frontal convexity region (series 4 image 27) a calcified structure previously identified by MR scanning 12/22/13 is again seen without change control specialist time considering differences in technique. Additionally, a homogeneously enhancing presumed meningioma at the left posterior cranial fossa dorsal to the mastoid air cell region is again noted, also present on prior MR scanning, and also without appreciable change from the prior 2014 MRI. No abnormal intracranial enhancement or abnormal reduced enhancement, otherwise.. Hammonds-white interface appears normal. Skull and face: Calvarium and visualized facial bones appear intact, without suspicious lesions. Sinuses: Visualized sinuses and mastoids are clear. IMPRESSION: The prior noncontrast CT scanning head raise concern for presence of left temporal brain parenchymal hypoattenuation as can be seen in the setting of encephalitis and some strokes, and also conceivably associated with an infiltrative neoplasm. However, currently back area of the brain parenchyma appears entirely normal. The prior MRI from December 2013 that identified to presumed meningiomas, again seen by this study without change in size over time. One is predominantly calcified and at the left parafalcine posterior frontal convexity almost at the midline, almost at the skull vertex. The second is located at the left posterior cranial fossa producing a small degree of mass effect against the lateral border of the left mid cerebellum. Prior MR scanning was possible in 2013 presumably due to absence of the currently present a cardiac pacemaking device and leads. Dictated by: Janak Kaur M.D. on 10/04/2016 at 9:05 Diet Low fat, Low Sodium, Heart Healthy Activity No restrictions Call your provider Fever or Chills, Shortness of breath, Chest pain, Weakness (unilateral) Patient Instructions Your evaluated for a fall which appears to be a mechanical fall. During imaging of your pelvis we did note some lesions in the bony region. You have executed a bone scan today for further evaluation. Please follow up with her primary care physician for further review of her imaging and possible referral to an epic specialist. Follow-up plan As noted above, please follow up with her primary care physician in one week Follow-up Provider: Gonzalez Murillo DO Follow-up with PCP in: 1 week (patient to be evaluated for oncology referral given bony lesions. Current bone scan pending, October 05) Adarsh Galvan DO Oct 05, 2016 11:13
--- NOTE | 2016-10-05 11:15 | NUR ---
Social Work Discharge and Continued Discharge Planning: SW met with patient at bedside to discuss discharge plan. Order for discharge acknowledged. Patient accompanied by and family. Therapy notes reflect recommendations for outpt therapy. SW obtained script from . Patient and states plan as home with family support. Patient and states being able to make outpt therapy appointment independently following discharge. No other anticipated discharge needs needs at this time. SW to follow if further needs arise. PLAN: Home with via POV, pending clinical course Mita GRIMM
--- NOTE | 2016-10-05 11:22 | PCM.DC.MED ---
Discharge Summary Date of Service Oct 05, 2016 Dates of Hospitalization Date of Hospital Admission Oct 03, 2016 at 14:44 Date of Discharge: Oct 05, 2016 Providers: Admitting Physician: Immanuel Thomas MD Primary Care Physician: Gonzalez Murillo DO Attending Physician: Immanuel Thomas MD Diagnosis at Time of Discharge Diagnosis at Time of Discharge Mechanical fall A defibrillation Hypertension CAD Bony lesions, sclerotic pelvic lesions-PET bone scan pending, discharge after bone scan completed Procedures XRay, CTs & MRIs XR pelvis (10/03/2016): 1. No fracture or subluxation. 2. Heterogeneous appearance of the visualized osseous structures with indistinct sclerotic regions. Although the findings may represent heterogeneous osteopenia, an infiltrative process such as metastatic disease may have this appearance. Recommend correlation clinically and further evaluation with bone scan if indicated. CT Brain (10/03/2016): 1. Region of hypoattenuation involving the left temporal lobe within the middle cranial fossa. The finding is suggestive of nonspecific edema in the differential includes an underlying mass lesion or encephalitis among other etiologies. Given patient's history of prostate cancer as well as a pacemaker, recommend further evaluation with a contrast enhanced head CT if clinically indicated. Chest X-ray (10/03/2016): Probable atelectasis or scarring the left lung base. No definite acute cardiopulmonary disease. CT Pelvis (10/03/2016): IMPRESSION: 1. No definite acute traumatic abnormality identified in the abdomen or pelvis. 2. Nonspecific scattered sclerotic lesions demonstrated in the bony pelvis as described. The findings may reflect heterogeneous demineralization related to osteopenia as well as bone islands but given patient's history of prostate cancer may also reflect blastic metastatic disease. Recommend followup evaluation with a bone scan. 3. No evidence of intraperitoneal metastatic disease in the abdomen or pelvis. 4. Bilateral sclerosis of the femoral heads. The findings are nonspecific but raise the possibility of avascular necrosis. No evidence of articular surface collapse. 5. Cholelithiasis with mild gallbladder wall thickening. The findings may represent developing cholecystitis in the appropriate clinical context.Patient Name: ANCA ZUNIGA MR#: [id number] Location: [facility] [place] Ordering Phys: Immanuel Thomas MD Date of Service: 10/04/16 0800 PROCEDURE: CT BRAIN WITH CONTRAST INDICATIONS: brain lesion, pacemaker in place TECHNIQUE: 4.5 mm thick angled axial sections acquired from the foramen magnum to the vertex after the administration of intravenous contrast, with coronal reformats. COMPARISON: [facility], MR, STROKE PROTOCOL (PNL), 12/22/2013, 12: 30. [facility], CR, XR CHEST 1VW (PORTABLE), 10/03/2016, 10:39. [facility], CT, CT BRAIN WO CON, 10/03/2016, 14:15. FINDINGS: Image quality: Excellent. CSF Spaces: Basal cisterns are patent. No extra-axial fluid collections. Ventricles are normal in size and shape. Brain: No midline shift. No intracranial bleeds or new masses. At the left parafalcine posterior frontal convexity region (series 4 image 27) a calcified structure previously identified by MR scanning 12/22/13 is again seen without waste/materials exchange specialist time considering differences in technique. Additionally, a homogeneously enhancing presumed meningioma at the left posterior cranial fossa dorsal to the mastoid air cell region is again noted, also present on prior MR scanning, and also without appreciable change from the prior 2014 MRI. No abnormal intracranial enhancement or abnormal reduced enhancement, otherwise.. Hammonds-white interface appears normal. Skull and face: Calvarium and visualized facial bones appear intact, without suspicious lesions. Sinuses: Visualized sinuses and mastoids are clear. IMPRESSION: The prior noncontrast CT scanning head raise concern for presence of left temporal brain parenchymal hypoattenuation as can be seen in the setting of encephalitis and some strokes, and also conceivably associated with an infiltrative neoplasm. However, currently back area of the brain parenchyma appears entirely normal. The prior MRI from December 2013 that identified to presumed meningiomas, again seen by this study without change in size over time. One is predominantly calcified and at the left parafalcine posterior frontal convexity almost at the midline, almost at the skull vertex. The second is located at the left posterior cranial fossa producing a small degree of mass effect against the lateral border of the left mid cerebellum. Prior MR scanning was possible in 2013 presumably due to absence of the currently present a cardiac pacemaking device and leads. Dictated by: Janak Kaur M.D. on 10/04/2016 at 9:05 Approved by: Janak Kaur M.D. on 10/04/2016 at 9:05 Other Diagnostics Bone scan, PET-results pending, patient getting this completed today prior to discharge. Brief History 86 year old male with h/o CAD, HTN, a fib, presented to ED with c/o worsening left hip pain. As per family member, he fell into his chair before two days and then was complaiing of left hip which was mild until this morning while working in garage he again fell backward into his chair. He denies any trauma to his head or loss of consciousness. As per family members it was difficult for him to get up from the floor. He also reports of recent cough but denies fever, chest pain, chills. He also had difficulty in walking because of balance issues after fall. In ED, he was afebrile, normotensive, saturating 95% on room air. He underwent CT brain which revealed "hypoattenuation involving the left temporal lobe. CT pelvis revealed non specific scattered lesions in the bony pelvis. Pt seen and examined bed side. He is not in acute distress. c/o left hip pain. Denies chest pain, shortness of breath. Hospital Course 86 year male with h/o HTN, A fib on coumadin, CAD presented with left hip pain and balance issues after fall found to have non specific sclerotic lesions in pelvis and left temporal lesion - admitted on October 03 s/p fall, likely mechanical, outpatient physical therapy recommended - No evidence of fractures on CT scan - CT pelvis: non specific sclerotic pelvic lesions - PET bone scan to rule to metastasis as he has history of prostate cancer. Currently being completed today prior to discharge -We will proceed with checking a bone scan to further investigate - likely needing in oncology referral or follow-up with his previous prostate cancer physician as facilitated by his primary care physician - Check PSA given past history of prostate carcinoma -Continue with physical therapy - balance issues can be brain stem stroke - MRI is contraindicated due to pacemaker implantation -CT of brain with contrast was obtained today October 04 and see attached report - IMPRESSION: The prior noncontrast CT scanning head raise concern for presence of left temporal brain parenchymal hypoattenuation as can be seen in the setting of encephalitis and some strokes, and also conceivably associated with an infiltrative neoplasm. However, currently back area of the brain parenchyma appears entirely normal. The prior MRI from December 2013 that identified to presumed meningiomas, again seen by this study without change in size over time. One is predominantly calcified and at the left parafalcine posterior frontal convexity almost at the midline, almost at the skull vertex. The second is located at the left posterior cranial fossa producing a small degree of mass effect against the lateral border of the left mid cerebellum. Prior MR scanning was possible in 2013 presumably due to absence of the currently present a cardiac pacemaking device and leads. - Physical therapy - cleared patient for discharge with recommendations for outpatient physical therapy Hypertension -Controlled during admission -Restart home blood pressure medications Atrial fibrillation - on coumadin - on [id number] mg - Will resume it as per INR -Dose adjusted by pharmacist while hospitalized Status: Admitted under observation status, time of discharge patient was hemodynamically stable with adequate oxygenation. Exam Vital Signs (Last) Date Time Temp Pulse Resp B/P Pulse Ox O2 Delivery O2 Flow Rate FiO2 10/05/16 05:10 36.7 66 16 115/61 94 Room Air Exam Constitutional: Elderly man in no acute distress sitting in chair by bedside. Head: Normocephalic atraumatic Chest: Clear to auscultation Cor: Regular rate and rhythm S1-S2 Abdomen: Soft nontender bowel sounds present Extremities: No pedal edema no tenderness to palpation over the back of his left hip. Neurologic exam: Cranial nerve II-12 grossly intact, muscle strength intact flexion-extension upper extremity and lower external bilaterally Test 10/03/16 11:27 10/03/16 14:40 10/04/16 06:33 10/05/16 05:40 Neutrophils (%) (Auto) 63.2% (40-74) Lymphocytes (%) (Auto) 29.8% (14-46) Monocytes (%) (Auto) 6.6% (4-12) Eosinophils (%) (Auto) 0% (0-5) Basophils (%) (Auto) 0.2% (0-3) Total Bilirubin 0.3mg/dL (0.0-1.2) Aspartate Amino Transf (AST/SGOT) 43U/L (0-50) Alanine Aminotransferase (ALT/SGPT) 32U/L (0-44) Alkaline Phosphatase 77U/L (25-160) Total Protein 6.9g/dL (6.4-8.4) Albumin 3.2g/dL (3.4-5.0) Hold Olguin Top Tube Received (Received) Urine Color Yellow (YELLOW) Urine Appearance Clear (CLEAR,HAZY) Urine pH 6.0 (5.0-8.0) Urine Specific [place] <1.005 (1.003-1.035) Urine Protein Negativemg/dL (NEG,TRACE) Urine Glucose (UA) Negativemg/dL (NEGATIVE) Urine Ketones Negativemg/dL (NEGATIVE) Urine Occult Blood Small (NEGATIVE) Urine Nitrite Negative (NEGATIVE) Urine Bilirubin Negative (NEGATIVE) Urine Urobilinogen Normalmg/dL (NORMAL) Urine Leukocyte Esterase Negative (NEGATIVE) Urine RBC 0-2/hpf (0-2) Urine WBC 0-5/hpf (0-5) Urine Epithelial Cells Occasional/hpf (NONE-MOD) Urine Crystals None seen (NONE SEEN) Urine Bacteria None/hpf (NONE-FEW) Urine Hyaline Casts None/lpf (NONE) Urine Granular Casts None seen (NONE SEEN) Urine Waxy Casts None seen (NONE SEEN) Urine Red Blood Cell Casts None seen (NONE SEEN) Urine White Blood Cell Casts None seen (NONE SEEN) Urine Mucus None seen (None Seen) Urine Trichomonas None seen (NONE SEEN) Urine Yeast None (NONE SEEN) Urinalysis Comment None Urine Culture Reflexed Not indicated White Blood Count 6.2th/mm3 (3.8-10.1) Red Blood Count 4.07mil/mm3 (4.40-5.80) Hemoglobin 12.9g/dL (13.8-17.2) Hematocrit 38.6% (41.0-50.0) Mean Corpuscular Volume 94.8fL (81-100) Mean Corpuscular Hemoglobin 31.7pg (27.0-35.0) Mean Corpuscular Hemoglobin Concent 33.4% (32.0-37.0) Red Cell Distribution Width 14.0% (12.3-15.4) Platelet Count 109bil/L (150-400) Sodium Level 132mEq/L (134-144) Potassium Level 4.2mEq/L (3.5-5.2) Chloride Level 98mEq/L (97-108) Carbon Dioxide Level 24mmol/L (18-29) Blood Urea Nitrogen 21mg/dL (8-27) Creatinine 1.01mg/dL (0.76-1.27) Estimat Glomerular Filtration Rate 74mL/min (>59) Glucose Level 103mg/dL (60-99) Calcium Level 8.3mg/dL (8.5-10.1) Prothrombin Time 19.6sec (8.1-12.5) Prothromb Time International Ratio 1.81ratio Discharge Medications Discharge Medications Aspirin (Aspirin) 81 Mg Tablet 81 MG PO DAILY (Reported) Atorvastatin (Lipitor) 20 Mg Tablet 40 MG PO HS Prescribed by: JOSE KAUR MD Citalopram (Citalopram) 10 Mg Tablet 10 MG PO DAILY (Reported) Diltiazem ER (Cartia XT) 120 Mg Cap.er.24h 120 MG PO DAILY (Reported) Ofloxacin (Ofloxacin) 5 Ml Drops 5 ML LEFT_EYE QID (Reported) Warfarin Sodium (Warfarin Sodium) 5 Mg Tablet 5 MG PO DAILY (Reported) Miscellaneous Medications Losartan Potassium (Losartan Potassium) 50 Mg Tablet 50 MG PO (Reported) Followup Plan Follow-up plan As noted above, please follow up with her primary care physician in one week Discharge Diet: Low fat, Low Sodium, Heart Healthy Discharge Activity: No restrictions Patient Instructions Your evaluated for a fall which appears to be a mechanical fall. During imaging of your pelvis we did note some lesions in the bony region. You have executed a bone scan today for further evaluation. Please follow up with her primary care physician for further review of her imaging and possible referral to an travel specialist. Follow-up Provider: Gonzalez Murillo DO Follow-up with PCP in: 1 week (patient to be evaluated for oncology referral given bony lesions. Current bone scan pending, October 05) Time spent 40 minutes was spent with evaluation management, greater than 50% this time was spent [id number] with counseling copies to: Gonzalez Murillo David DO Oct 05, 2016 11:22
--- NOTE | 2016-10-05 13:44 | NUR ---
DISCHARGE Patient's saline lock IV was removed from left forearm, catheter intact. Dressing applied. Patient stood and got dressed with minimal assistance from patient's . Reviewed discharge paperwork with patient, and daughter at bedside. Explained to make appointment with PCP, Dr. Murillo within a week to review bone scan results. Patient verbalized understanding. Transferred into wheelchair and was taken outside to personal vehicle.
--- NOTE | 2016-10-05 15:01 | DRSVH ---
PROCEDURE: [place] WHOLE BODY BONE SCAN ([id number]) RADIOPHARMACEUTICAL: 27.6 mCi Tc-99m MDP IV. INDICATIONS: SCLEROTIC BONY LESIONS IN PELVIS TECHNIQUE: Delayed whole-body scintigrams were obtained approximately 3-4 hours after intravenous injection of r adiotracer. Anterior and posterior views were acquired from vertex to feet. Additional left and rig ht oblique views of the skull spine and pelvis were obtained. COMPARISON: [facility], CT, CT ABD PELVIS W CON TRAUMA, 10/03/2016, 12:52. FINDINGS: Focal tracer uptake is seen at the vertex. Effu cervical spine Tracer uptake could be degen erative. There is also focal tracer uptake at the right 10th costovertebral junction, and in the L5 l evel of lumbar spinal disc and BE bilateral facet disease. IMPRESSION: Focal tracer uptake in the vertex, nonspecific however recommend further assessment with anatomic tamar ging such as head CT. Focal tracer uptake at the right T10 costovertebral junction (in addition to mid right anterior rib u ptake although the exact level is unclear). Findings are nonspecific however cannot exclude osseous m etastasis and further assessment with noncontrast chest CT recommended. Lower lumbar tracer uptake at the level of L5 appears to be related to bilateral facet disease althou gh this could be confirmed with anatomic imaging No definite tracer uptake to correlate with the sclerotic regions seen in the pelvis from prior study dated 10/03/16. Dictated by: Ashok Millan M.D. on 10/05/2016 at 15:00 Approved by: Ashok Millan M.D. on 10/05/2016 at 15:00
[2016-11-05] MEDS ORDERED: MULT-1018 PO (12:36)
[2016-11-05] MEDS ORDERED: SALM1CAP4 PO (12:36)
[2016-11-05] MEDS ORDERED: OMEG-38 PO (12:36)
[2016-11-05] MEDS ORDERED: CITA10TA14 PO (12:36)
[2016-12-09] MEDS ORDERED: ROSU5TAB PO (11:05)
[2016-12-09] MEDS ORDERED: UBID1CAP52 PO (11:05)
== END 2016-10-05 13:39 | disposition home or self-care (01) ==
LOC: SED 10:07 → OSC 14:44
PROVIDERS: ADMIT Internal Medicine; ATTEND Internal Medicine
DX: M25.552 Pain in left hip (principal); R26.81 Unsteadiness on feet; W18.09XA Striking against other object with subsequent fall, initial encounter; Z91.81 History of falling; Y93.01 Activity, walking, marching and hiking; Y92.015 Private garage of single-family (private) house as the place of occurrence of the external cause; G93.9 Disorder of brain, unspecified; M89.9 Disorder of bone, unspecified; I10 Essential (primary) hypertension; I48.91 Unspecified atrial fibrillation; I25.10 Atherosclerotic heart disease of native coronary artery without angina pectoris; F32.9 Major depressive disorder, single episode, unspecified; Z85.46 Personal history of malignant neoplasm of prostate; Z95.1 Presence of aortocoronary bypass graft; Z95.0 Presence of cardiac pacemaker; Z79.01 Long term (current) use of anticoagulants; Z79.82 Long term (current) use of aspirin; Z87.891 Personal history of nicotine dependence
CPT/HCPCS: 36415; 70450; 70460; 71010; 72170; 72220; 74177; 78306; 80048; 80053; 81000; 85025; 85027; 85610; 93005; 97161; 99285; A9503; G0378; G8978; G8979; G8980; Q9967

== ENCOUNTER 2016-10-29 17:52 | Observation (INO) | payer MEDICARE, OTHER ==
[~2016-10-29] VITALS: Ht 177.8 cm; Wt 75.0 kg
[~2016-10-29 17:52] MED LIST changes: +0.9% Sodium Chloride 1,000 ML IV ONE; -ASPI-1012 PO; +ASPI-973 PO; -CAR120CD PO; -CITA10TA14 PO; +CITA10TA9 PO; -COU5 PO; -COZ50 PO; +DILT120C52 PO; +LOSA50TA37 PO; +OFLO5DRO9 LEFT_EYE; +Piperacillin-Tazo 3.375 Gm Inj 3.375 GM in Dextrose 5% Minibag Plus 50 ML IV ONE; +WARF5TAB7 PO
--- NOTE | 2016-10-29 17:57 | ED.REPORT ---
HPI-Fever Date of Service Oct 29, 2016 ED Provider: Mauricio Morley DO An 86 year old male with a medical history including hypertension, atrial fibrillation on Warfarin, and CAD s/p CABG and pacemaker insertion presents to the ED accompanied by his family with generalized weakness onset today after returning from physical therapy. The patient had to be semi-carried from the house to the car, which is unusual for him. Associated symptoms include lower back pain, confusion, fever (38.9), slow urination, and productive cough with brown sputum. The patient denies headache, sore throat, sinus pain, head trauma , abdominal pain, diarrhea, dysuria, or rash. He has never had similar symptoms in the past. The patient was discharged from the hospital on 10/05/16 after a two night stay with back pain after a mechanical fall. Nursing Notes Stated Complaint: CONFUSION,WEAKNESS Nursing Notes Reviewed: Yes Allergies: Coded Allergies: hydromorphone (Verified Allergy, Severe, 01/17/16) lisinopril (Verified Allergy, Mild, cough, 01/17/16) Scheduled ([DoTerra supplements]) 3 CAPSULE PO DAILY Aspirin (Aspirin) 81 Mg Tablet 81 MG PO DAILY Citalopram (Citalopram) 10 Mg Tablet 10 MG PO DAILY Diltiazem ER (Cartia XT) 120 Mg Cap.er.24h 120 MG PO DAILY Ketorolac Tromethamine (Ketorolac Tromethamine) 5 Ml Drops 1 GTTS AFFECT_EYE TID Losartan Potassium (Losartan Potassium) 50 Mg Tablet 50 MG PO DAILY Prednisolone Acetate (Prednisolone Acetate) 5 Ml Drops.susp 1 DROP AFFECT_EYE TID Warfarin Sodium (Warfarin Sodium) 5 Mg Tablet 5 MG PO DAILY General Time Seen by MD: 17:53 Chief Complaint Other (Generalized Weakness) Hx Obtained From: Patient, Spouse Arrived By: Walk-in Onset Occurred: 5 - 8 hours ago Symptom Duration: Since onset Location: : Back lower Quality: Painful Severity: Current: Moderate Severity: Maximum: Moderate Associated with: Reports: Back pain, Confusion, Cough, productive, Sputum production, Denies: Abdominal pain, Headache, Neck stiffness, Sore throat Pertinent Negative: Relieved by nothing Context: Immunization Status Immunizations Up to Date: Seasonal influenza Immunizations Not Up to Date: Pneumococcal Recent Healthcare: Recent doctor visit, Recent hospitalization Similar Sx Previous: No Past Medical History Past Medical History Notes: PCP: Dr. Murillo Past Medical History Heart murmur Bony lesions Sclerotic pelvic lesions Reports: Cancer, Coronary artery disease, Hypertension Reports: Atrial fibrillation, Depression Past Surgical History CABG Shoulder surgery Pacemaker insertion Reports: Pacemaker insertion Smoking History Former Smoker Social History Alcohol Use: "Social" Drug Use: Denies drug use Other Social History: Good social support, Ambulatory Status Independent Review of Systems Review of Systems Note: + Slow urination - Head trauma Constitutional: Reports: Fever (38.9 in ED), Weakness - generalized Ears / Nose / Throat: Reports: Sore throat, Denies: Sinus problem Respiratory: Reports: Prod cough, brown GI: Denies: Abdominal pain, Diarrhea Female: Denies: Dysuria Skin: Denies Rash Neurologic: Reports: Confusion, Denies: Headache Complete sys rev & neg: except as marked. Musculoskeletal: Reports: Back pain (Lower) Physical Exam Physical Exam Notes: Initial Vital Signs Vital Signs (First) Date Time Temp Pulse Resp B/P Pulse Ox O2 Delivery O2 Flow Rate FiO2 10/29/16 18:01 38.9 94 18 125/46 95 Room Air Initial VS: Reviewed Head / Eyes: Atraumatic, Normocephalic ENT: Conjunctiva normal, No scleral icterus Psychiatric: Mood/affect normal, Behavior normal, Normal thought content General/Constitutional: Awake, Alert Alertness: Positive: Confused Febrile, skin feels warm Slow to respond to questions Neck: Supple, No meningismus, Full range of motion Respiratory / Chest: Breath sounds NL, Breath sounds = bilat, No respiratory distress Cardiovascular: Heart rate NL, Regular rhythm, Peripheral circulation NL Heart Sounds / Murmur: Positive: Murmur present... (Systolic Ejection) Skin: Color NL, No rash, Warm, Dry Skin well perfused Mental Status: Positive: Confused Abdomen: Atraumatic, Non-tender Mildly protuberant abdomen Interpretation & Diagnostics INFLUENZA NEGATIVE Lab Results Interpretation Result Diagram: 10/29/16 1755 10/29/16 1755 Test 10/29/16 17:55 10/29/16 18:25 White Blood Count 7.1th/mm3 (3.8-10.1) Red Blood Count 3.43mil/mm3 (4.40-5.80) Hemoglobin 10.8g/dL (13.8-17.2) Hematocrit 32.5% (41.0-50.0) Mean Corpuscular Volume 94.8fL (81-100) Mean Corpuscular Hemoglobin 31.5pg (27.0-35.0) Mean Corpuscular Hemoglobin Concent 33.2% (32.0-37.0) Red Cell Distribution Width 14.7% (12.3-15.4) Platelet Count 182bil/L (150-400) Neutrophils (%) (Auto) 81.0% (40-74) Lymphocytes (%) (Auto) 15.3% (14-46) Monocytes (%) (Auto) 3.5% (4-12) Eosinophils (%) (Auto) 0.1% (0-5) Basophils (%) (Auto) 0.1% (0-3) Prothrombin Time 30.9sec (8.1-12.5) Prothromb Time International Ratio 2.83ratio Sodium Level 134mEq/L (134-144) Potassium Level 4.6mEq/L (3.5-5.2) Chloride Level 98mEq/L (97-108) Carbon Dioxide Level 21mmol/L (18-29) Blood Urea Nitrogen 23mg/dL (8-27) Creatinine 1.08mg/dL (0.76-1.27) Estimat Glomerular Filtration Rate 69mL/min (>59) Glucose Level 104mg/dL (60-99) Lactic Acid Level 1.2mmol/L (0.4-2.0) Calcium Level 8.4mg/dL (8.5-10.1) Magnesium Level 2.0mg/dL (1.6-2.6) Total Bilirubin 0.7mg/dL (0.0-1.2) Aspartate Amino Transf (AST/SGOT) 25U/L (0-50) Alanine Aminotransferase (ALT/SGPT) 22U/L (0-44) Alkaline Phosphatase 76U/L (25-160) Troponin T < 0.010ug/L (0.0-0.011) Total Protein 7.1g/dL (6.4-8.4) Albumin 3.4g/dL (3.4-5.0) Procalcitonin 0.45ng/mL (0.00-0.08) Thyroid Stimulating Hormone (TSH) 1.270uIU/mL (0.450-4.500) Urine Color Yellow (YELLOW) Urine Appearance Clear (CLEAR,HAZY) Urine pH 6.0 (5.0-8.0) Urine Specific [place] 1.025 (1.003-1.035) Urine Protein Tracemg/dL (NEG,TRACE) Urine Glucose (UA) Negativemg/dL (NEGATIVE) Urine Ketones Tracemg/dL (NEGATIVE) Urine Occult Blood Moderate (NEGATIVE) Urine Nitrite Negative (NEGATIVE) Urine Bilirubin Negative (NEGATIVE) Urine Urobilinogen Normalmg/dL (NORMAL) Urine Leukocyte Esterase Negative (NEGATIVE) Urine RBC 3-10/hpf (0-2) Urine WBC 0-5/hpf (0-5) Urine Epithelial Cells None/hpf (NONE-MOD) Urine Crystals None seen (NONE SEEN) Urine Bacteria Few/hpf (NONE-FEW) Urine Hyaline Casts None/lpf (NONE) Urine Granular Casts None seen (NONE SEEN) Urine Waxy Casts None seen (NONE SEEN) Urine Red Blood Cell Casts None seen (NONE SEEN) Urine White Blood Cell Casts None seen (NONE SEEN) Urine Mucus None seen (None Seen) Urine Trichomonas None seen (NONE SEEN) Urine Yeast None (NONE SEEN) Urinalysis Comment None Urine Culture Reflexed Not indicated ECG Interpretation ECG Interpretation: Atrial-sensed ventricular paced rhythm rate 81 Time: 18:46 Interpreted by: ED physician X-Ray Chest Interpretation Chest Xray Interpretation: IMPRESSION: Cardiomegaly, without acute cardiopulmonary disease. Dictated by: Urbano Wagner M.D. on 10/29/2016 at 18:38 View: Portable, 1 view Interpretation / Wet Read by: Interpret - Radiologist CT Abd / Pelvis Interpretation IMPRESSION: 1. A source of sepsis is not found within the abdomen or pelvis. 2. Multiple calcified and noncalcified gallstones again noted. 3. Mild splenomegaly as before, of uncertain etiology. 4. Mild sigmoid colon diverticulosis. 5. Several bilateral renal cortical simple cysts as before. 6. Small fat-containing left inguinal hernia. Dictated by: Urbano Wagner M.D. on 10/29/2016 at 19:58 Study type: Abdominal CT IV contrast Interpretation / Wet Read by: Interpret - Radiologist CT Head Interpretation IMPRESSION: 1. No acute intracranial abnormalities. 2. 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 Dictated by: Urbano Wagner M.D. on 10/29/2016 at 19:40 Study: Head CT no contrast Interpretation / Wet Read by: Interpret - Radiologist Re-Eval/Medical Decision Source of Hx: Old records Re-Evaluation/Progress #1: Time of Eval: 18:51 Patient Status: Condition improved Re-Evaluation/Progress Note: Discussed with patient and his family x-ray and lab results. Re-Evaluation/Progress #2: Time of Eval: 20:36 Patient Status: Condition improved Re-Evaluation/Progress Note: Discussed with patient and family CT and lab results, diagnosis, and plan for admit. Patient agrees with plan for care and all questions were addressed. Consultation #1: Referral / Consult Name: Mike Arias MD Consulted With: Hospitalist Call Returned at: 19:34 House Painting Instructor: Agrees with eval, Agrees with plan, Accepts admit Note: Recommends abdominal CT Consultation #2: Referral / Consult Name: Stanley Garcia MD Consulted With: Hospitalist Call Returned at: 20:34 House Painting Instructor: Agrees with eval, Agrees with plan, Accepts admit Counseled Regarding: Diagnosis, Lab results, Need for admission Discharge & Departure Impression: Primary Impression: Sepsis Sepsis type: sepsis due to unspecified organism Qualified Code: A41.9 - Sepsis, unspecified organism Additional Impressions: Fever Fever type: unspecified Qualified Code: R50.9 - Fever, unspecified Altered mental status Altered mental status type: delirium Qualified Code: R41.0 - Disorientation , unspecified Disposition: ADMITTED TO HOSPITAL Discharge Condition All VS Reviewed: Yes Condition: Stable Referrals: Gonzalez Murillo DO (PCP) Tamar Attestation Portions of this note were transcribed by Marysol Dill. I, Dr. Morley, personally performed the history, physical exam, and medical decision-making; I reviewed and confirmed the accuracy of the information in the transcribed note. Signed by: Tamar Tsai, 10/29/2016, 21:45 copies to: Gonzalez Murillo Todd P DO Oct 29, 2016 17:57 MARYSOL DILL Oct 29, 2016 18:27
[2016-10-29 18:01] VITALS: BP 125/46; PULSE 94; RESP 18; O2SAT 95
[2016-10-29 18:11] LABS: BASOPHILS % (AUTO) 0.1 % (0-3); EOSINOPHILS % (AUTO) 0.1 % (0-5); MONOCYTES % (AUTO) 3.5 % (4-12); Mean Corpuscular Hemoglobin 31.5 pg (27.0-35.0); Mean Corpuscular Volume 94.8 fL (81-100); Platelet Count 182 bil/L (150-400)
[2016-10-29 18:29] LABS: INR 2.83 ratio
[2016-10-29 18:40] LABS: TROPONIN T < 0.010 ug/L (0.0-0.011)
[2016-10-29 18:43] LABS: APPEARANCE,URINE CLEAR (CLEAR,HAZY); COLOR,URINE YELLOW (YELLOW)
[2016-10-29 18:44] LABS: OCCULT BLOOD,URINE MODERATE (NEGATIVE); UROBILINOGEN,URINE NORMAL (NORMAL)
--- NOTE | 2016-10-29 18:45 | DRSVH ---
PROCEDURE: X-RAY CHEST ONE VIEW, PORTABLE ([id number]) INDICATIONS: 86 year-old male with sepsis. TECHNIQUE: One view of the chest was acquired. COMPARISON: [facility], CR, XR CHEST 1VW (PORTABLE), 10/03/2016, 10:39. [facility], CR, XR CHEST 2VW, 02/05/2016, 15:46. [facility], CR, XR CHEST 1VW (PORTABLE), , 15:01. FINDINGS: Surgical changes and devices: Patient is status post coronary artery bypass grafting and aortic valve replacement. Left chest wall dual chamber pacemaker is again noted. Lungs and pleura: No pleural effusions or pneumothorax. Lungs are clear. Mediastinum: Mediastinal contours appear normal. There is mild cardiomegaly. There is aortic athero sclerosis. Bones and chest wall: No suspicious bony lesions. There is truncation of the lateral right clavicle as before, consistent with remote surgery and/or trauma. Overlying soft tissues appear unremarkable. IMPRESSION: Cardiomegaly, without acute cardiopulmonary disease. Dictated by: Urbano Wagner M.D. on 10/29/2016 at 18:38 Approved by: Urbano Wagner M.D. on 10/29/2016 at 18:39
[2016-10-29 19:15] VITALS: BP 106/37; PULSE 81; RESP 18; O2SAT 93
[2016-10-29] MEDS ORDERED: KETO5DRO14 RIGHT_EYE (19:42)
[2016-10-29] MEDS ORDERED: PRED5DRO6 AFFECT_EYE (19:42)
[2016-10-29] MEDS ORDERED: MULT-666 PO (19:47)
[2016-10-29] MEDS: 0.9% Sodium Chloride 1,000 ML IV SCH (19:50)
--- NOTE | 2016-10-29 19:51 | DRSVH ---
PROCEDURE: CT BRAIN WITHOUT CONTRAST ([id number]) INDICATIONS: 86-year-old male with altered mental status on warfarin. TECHNIQUE: Noncontrast 4.5 mm thick angled axial sections acquired from the foramen magnum to the vertex, with c oronal reformats. COMPARISON: [facility], MR, STROKE PROTOCOL (PNL), 12/22/2013, 12:30. [facility], CT, CT BRAIN W CON, 10/04/2016, 8:20. [facility], CT, CT BRAIN WO CON, 10/03/2016, 1 4:15. [facility], CT, BRAIN W/O CONTRAST, 12/21/2013, 17:13. FINDINGS: Image quality: Several images are moderately degraded by patient motion. CSF spaces: Basal cisterns are patent. No extra-axial fluid collections. Ventricles are normal in size and shape. Brain: No midline shift. No new intracranial mass effects or hemorrhage. Previously noted meningio ma near the left cerebellopontine angle is again noted, as well as parafalcine calcified meningioma a t the vertex. Hammonds-white matter interface is normal. There is intracranial internal carotid and verte bral artery atherosclerosis. Skull and face: Calvarium and visualized facial bones are intact, without suspicious lesions. Sinuses: Visualized sinuses and mastoids are clear. IMPRESSION: 1. No acute intracranial abnormalities. 2. 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 Dictated by: Urbano Wagner M.D. on 10/29/2016 at 19:40 Approved by: Urbano Wagner M.D. on 10/29/2016 at 19:45
[2016-10-29] MEDS ORDERED: [UNRECOGNIZED DRUG - OTHER] PO (19:52)
--- NOTE | 2016-10-29 20:13 | DRSVH ---
PROCEDURE: CT ABDOMEN AND PELVIS WITH CONTRAST ([id number]) INDICATIONS: 86-year-old male on warfarin with sepsis of uncertain source. TECHNIQUE: After the administration of intravenous contrast, 5 mm thick sections acquired from the diaphragm to the symphysis. 5 mm coronal and sagittal reformats were acquired. For radiation dose reduction, the following was used: automated exposure control, adjustment of mA and/or kV according to patient marialuisa cyr. COMPARISON: [facility], CT, CT ABD PELVIS W CON TRAUMA, 10/03/2016, 12:52. FINDINGS: Image quality: Excellent. ABDOMEN: Lung bases: Lung bases are clear. There is mild cardiomegaly status post median sternotomy. [place] r wires are again noted. Solid organs: Liver is normal in size and enhancement. Gallbladder contains multiple calcified and noncalcified gallstones as before. Biliary system is non dilated. Pancreas enhances normally. Mild splenomegaly is not significantly changed at 13.3 cm craniocaudal dimensions. No adrenal nodules. K idneys demonstrate normal size, without hydronephrosis. Several bilateral renal cortical simple cysts are again noted. Peritoneum and bowel: Bowel loops demonstrate normal wall thickness and caliber. There is mild sigm oid colon diverticulosis, without acute diverticulitis. No free fluid or air. Nodes and vessels: No retroperitoneal or mesenteric adenopathy by size criteria. Aorta and inferior vena cava are normal in size, with widespread aortoiliac atherosclerosis. Miscellaneous: Small fat-containing periumbilical ventral hernia is present. PELVIS: Genitourinary: Bladder wall thickness is normal. Prostate gland is normal in size. Miscellaneous: There is small fat-containing left inguinal hernia. No inguinal adenopathy by CT size criteria. Bones: No suspicious bony lesions. Grade 1 L4-L5 spondylolisthesis from facet joint degeneration is again noted. No acute vertebral body compression fractures. Nonacute T12 vertebral body superior end plate compression fracture is unchanged. IMPRESSION: 1. A source of sepsis is not found within the abdomen or pelvis. 2. Multiple calcified and noncalcified gallstones again noted. 3. Mild splenomegaly as before, of uncertain etiology. 4. Mild sigmoid colon diverticulosis. 5. Several bilateral renal cortical simple cysts as before. 6. Small fat-containing left inguinal hernia. Dictated by: Urbano Wagner M.D. on 10/29/2016 at 19:58 Approved by: Urbano Wagner M.D. on 10/29/2016 at 20:08
[2016-10-29] MEDS ORDERED: Alum-Mag Hydrox-Simeth 30 mL Suspension PO PRN (21:40)
[2016-10-29] MEDS ORDERED: Polyethylene Glycol (PEG) 17 Gm Powder PO PRN (21:40)
[2016-10-29] MEDS ORDERED: Ondansetron 2 mg/mL 2 mL Inj IVPUSH PRN (21:40)
[2016-10-29] MEDS ORDERED: HYDROcodone-APAP 5-325 mg Tablet PO PRN (21:40)
[2016-10-29 21:48] VITALS: BP 108/38; PULSE 74; RESP 18; O2SAT 93
[2016-10-29 22:10] VITALS: BP 109/51; PULSE 76; RESP 20; O2SAT 96
--- NOTE | 2016-10-29 23:53 | NUR ---
NEW ADMIT Pt arrived from the ED @ 2200 accompanied by and daughter. Pt able to transfer from stretcher to bed independently. Pt is A&Ox3 with slight confusion and hearing difficulties. Pt is on RA mid-high 90's, NS running @ 200ml/hr in the left forearm. Tele on, V-paced 80's. Vitals stable, BP 109/51, pt was hypotensive upon arrival in the ED. Pt denies SOB or any pain at this time. Call light within reach. No other issues noted at this time.
[2016-10-30] MEDS ORDERED: Heparin 5,000 Unit/mL Inj SUBQ SCH (00:30)
--- NOTE | 2016-10-30 00:59 | PCM.HPMED ---
Subjective Date of Service Oct 29, 2016 Primary Provider: Admitting Physician: Stanley Garcia MD Primary Care Physician: Gonzalez Murillo DO Attending Physician: Stanley Garcia MD Chief Complaint: Back pain, confusion History of Present Illness: Patient is a pleasant 86-year-old male with CAD s/p CABG and PPM, hypertension and atrial fibrillation presenting with low back pain and confusion. The patient is accompanied at bedside by family at time of visit. Of note, the patient was hospitalized last month after a ground level fall. Patient reports he continues to have intermittent back pain and leg weakness since his fall and has been going to physical therapy. Patient reports taking a nap after his physical therapy session today and when he stood up had severe low back pain. He says the back pain was in his lumbar area, left side greater than right. He describes it as a "grabbing pain" and was unable to stay standing. Patient's daughter reports he was confused and had difficulty talking. Patient was reportedly unsteady and unable to stand, requiring his family to carry him. They called a family friend that's an ER physician and it was recommended that he be brought to the ED for further evaluation. Patient reportedly had half a hydrocodone tablet and some Tylenol at home with relief of his pain. At time of visit, the patient reports no pain since arriving to the ED. In the ED, the patient had a recorded temperature of 38.9. He reports a cough of two weeks that is improving. With the cough there was initially some dark sputum but now it is a dry cough. He also reports occasional night sweats over the past two weeks with the onset of the cough. Patient otherwise denies chills, rhinorrhea, sore throat, nausea, emesis, diarrhea, dysuria, headache, dizziness, lightheadedness, acute vision change, myalgias, chest pain, shortness of breath. In the ED, vitals: temp 38.9, HR 94, RR 18 satting 95% on room air, BP 125/46. Chest x-ray without acute cardiopulmonary disease. CT brain without acute intracranial abnormalities and previously noted meningiomas near the left cerebellopontine angle and vertex are not significantly changed. CT abdomen and pelvis rather unremarkable for a source of sepsis. Review of Systems: A comprehensive review of systems was conducted with the patient and found to be negative except as above in the History of Present Illness. Allergies Coded Allergies: hydromorphone (Verified Allergy, Severe, 01/17/16) lisinopril (Verified Allergy, Mild, cough, 01/17/16) Home Medications Diltiazem 120mg daily Celexa 10mg daily Fish oil 1000mg daily Losartan 50mg daily Multivitamin daily Warfarin 5mg Mon, Tue, Yara, Fri, Sun Warfarin 7.5mg Wed, Sat PMH Coronary artery disease s/p CABG Hypertension Atrial fibrillation on warfarin Depression History of prostate cancer . Surgical History CABG Pacemaker placement Shoulder surgery Left cataract Bioprosthetic heart valve . Family History Mother at 96 years old from "old age" Father in his 80s from cardiac cause Social History Occupation: Retired, former Hx Alcohol Use: Yes (occasionally) Hx Substance Use: No Smoking Status: Former Smoker (Quit about 40 years ago) Living Arrangement: with Family Exam Vital Signs Vital Sign - Last Date Time Temp Pulse Resp B/P Pulse Ox O2 Delivery O2 Flow Rate FiO2 10/29/16 19:15 37.7 81 18 106/37 93 Room Air Exam General: Patient lying comfortably in bed. No acute distress, well-developed, well-nourished, appropriately interactive HEENT: Normocephalic, atraumatic. External ears without defect. Pupils equal, round, and reactive to light. Anicteric sclerae, moist conjunctivae, and no lid lag. Oropharynx free of erythema and cobble stoning with moist mucosa. Neck: Supple. No lymphadenopathy or thyromegaly. Chest: Regular rate and rhythm. III/ systolic murmur at base. Well-healed sternal surgical incision. Pulmonary: Clear to auscultation bilaterally with no crackles, wheezes, or rhonchi. Normal respiratory effort with no use of accessory muscles. Abdomen: Bowel tones present. Soft, nontender, mild distension. Extremities: No clubbing, cyanosis, edema, or lymphadenopathy appreciated. Skin: Normal temperature, turgor, and texture; no rash, ulcers, or subcutaneous nodules appreciated. Neurological: Cranial nerves grossly intact. Normal muscle strength, tone, and bulk. Motor strength 5/5 upper and lower extremities bilaterally. Coordination and sensory function within normal limits. Psychiatric: Normal mood and affect. Alert and oriented to person, place, and time. Lab and Diagnostics Result Diagram: 10/29/16175410/29/161754 X-Rays, CTs and MRIs Date of Service: 10/29/161935 PROCEDURE: CT ABDOMEN AND PELVIS WITH CONTRAST ([id number]) INDICATIONS: 86-year-old male on warfarin with sepsis of uncertain source. TECHNIQUE: After the administration of intravenous contrast, 5 mm thick sections acquired from the diaphragm to the symphysis. 5 mm coronal and sagittal reformats were acquired. For radiation dose reduction, the following was used: automated exposure control, adjustment of mA and/or kV according to patient size. COMPARISON: [facility], CT, CT ABD PELVIS W CON TRAUMA, 10/03/2016, 12:52. FINDINGS: Image quality: Excellent. ABDOMEN: Lung bases: Lung bases are clear. There is mild cardiomegaly status post median sternotomy. Pacemaker wires are again noted. Solid organs: Liver is normal in size and enhancement. Gallbladder contains multiple calcified and noncalcified gallstones as before. Biliary system is non dilated. Pancreas enhances normally. Mild splenomegaly is not significantly changed at 13.3 cm craniocaudal dimensions. No adrenal nodules. Kidneys demonstrate normal size, without hydronephrosis. Several bilateral renal cortical simple cysts are again noted. Peritoneum and bowel: Bowel loops demonstrate normal wall thickness and caliber. There is mild sigmoid colon diverticulosis, without acute diverticulitis. No free fluid or air. Nodes and vessels: No retroperitoneal or mesenteric adenopathy by size criteria. Aorta and inferior vena cava are normal in size, with widespread aortoiliac atherosclerosis. Miscellaneous: Small fat-containing periumbilical ventral hernia is present. PELVIS: Genitourinary: Bladder wall thickness is normal. Prostate gland is normal in size. Miscellaneous: There is small fat-containing left inguinal hernia. No inguinal adenopathy by CT size criteria. Bones: No suspicious bony lesions. Grade 1 L4-L5 spondylolisthesis from facet joint degeneration is again noted. No acute vertebral body compression fractures. Nonacute T12 vertebral body superior endplate compression fracture is unchanged. IMPRESSION: 1. A source of sepsis is not found within the abdomen or pelvis. 2. Multiple calcified and noncalcified gallstones again noted. 3. Mild splenomegaly as before, of uncertain etiology. 4. Mild sigmoid colon diverticulosis. 5. Several bilateral renal cortical simple cysts as before. 6. Small fat-containing left inguinal hernia. Dictated by: Urbano Wganer M.D. on 10/29/2016 at 19:58 Approved by: Urbano Wagner M.D. on 10/29/2016 at 20:08 ----- Date of Service: 10/29/16 1916 PROCEDURE: CT BRAIN WITHOUT CONTRAST ([id number]) INDICATIONS: 86-year-old male with altered mental status on warfarin. TECHNIQUE: Noncontrast 4.5 mm thick angled axial sections acquired from the foramen magnum to the vertex, with coronal reformats. COMPARISON: [facility], MR, STROKE PROTOCOL (PNL), 12/22/2013, 12: 30. [facility], CT, CT BRAIN W CON, 10/04/2016, 8:20. [facility], CT, CT BRAIN WO CON, 10/03/2016, 14:15. [facility] , CT, BRAIN W/O CONTRAST, 12/21/2013, 17:13. FINDINGS: Image quality: Several images are moderately degraded by patient motion. CSF spaces: Basal cisterns are patent. No extra-axial fluid collections. Ventricles are normal in size and shape. Brain: No midline shift. No new intracranial mass effects or hemorrhage. Previously noted meningioma near the left cerebellopontine angle is again noted , as well as parafalcine calcified meningioma at the vertex. Hammonds-white matter interface is normal. There is intracranial internal carotid and vertebral artery atherosclerosis. Skull and face: Calvarium and visualized facial bones are intact, without suspicious lesions. Sinuses: Visualized sinuses and mastoids are clear. IMPRESSION: 1. No acute intracranial abnormalities. 2. 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 Dictated by: Urbano Wagner M.D. on 10/29/2016 at 19:40 Approved by: Urbano Wagner M.D. on 10/29/2016 at 19:45 ----- Date of Service: 10/29/16 1748 PROCEDURE: X-RAY CHEST ONE VIEW, PORTABLE ([id number]) INDICATIONS: 86 year-old male with sepsis. TECHNIQUE: One view of the chest was acquired. COMPARISON: [facility], CR, XR CHEST 1VW (PORTABLE), 10/03/2016, 10: 39. [facility], CR, XR CHEST 2VW, 02/05/2016, 15:46. [facility], CR, XR CHEST 1VW (PORTABLE), 01/17/2016, 15:01. FINDINGS: Surgical changes and devices: Patient is status post coronary artery bypass grafting and aortic valve replacement. Left chest wall dual chamber pacemaker is again noted. Lungs and pleura: No pleural effusions or pneumothorax. Lungs are clear. Mediastinum: Mediastinal contours appear normal. There is mild cardiomegaly. There is aortic atherosclerosis. Bones and chest wall: No suspicious bony lesions. There is truncation of the lateral right clavicle as before, consistent with remote surgery and/or trauma. Overlying soft tissues appear unremarkable. IMPRESSION: Cardiomegaly, without acute cardiopulmonary disease. Dictated by: Urbano Wagner M.D. on 10/29/2016 at 18:38 Approved by: Urbano Wagner M.D. on 10/29/2016 at 18:39 Assessment & Plan Patient is a pleasant 86-year-old male with CAD s/p CABG and PPM, hypertension and atrial fibrillation presenting with low back pain and confusion. 1. Acute encephalopathy. Present on admission. Resolved -CT brain reads no acute intracranial abnormalities. 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 -Uncertain etiology, possibly secondary to uncontrolled pain -Follow clinically 2. Fever. Present on admission. Resolved -Temperature 38.9 on admit -Minimal cough with no other signs of infection clinically -Influenza screen negative -Pending: Procalcitonin, PCR respiratory virus, blood cultures -Acetaminophen PRN 3. Low back pain s/p ground level fall. Present on admission -Patient hospitalized last month 10/03 - 10/05/2016 for this issue following fall -Pain control with acetaminophen, hydrocodone -PT evaluation 4. Hypertension, chronic. Present on admission -Continue with home antihypertensive 5. CAD s/p CABG, chronic. Present on admission -Continue home statin, ASA 6. Atrial fibrillation, chronic. Present on admission -Continue diltiazem -Warfarin per pharmacy 7. Sclerotic pelvic bone lesions. Present on admission -Incidentally discovered on CT during previous hospitalization -Patient has outpatient follow up with Oncology Patient Status: Patient is admitted under observation status with expected length of stay less than 2 midnights due to severity of presenting symptoms and risk of adverse event. VTE Prophylaxis: Theraputic Anticoag with Warfarin Resuscitation Status: CPR: Attempt Resuscitation Attending Statement The patient was seen and examined together with Dr. Torres on 10/29 and I agree with the history, exam and plan as outlined in the note above. Zafar Torres DO Oct 29, 2016 21:58 Stanley Garcia MD Oct 30, 2016 03:04
[2016-10-30] MEDS: 0.9% Sodium Chloride 1,000 ML IV SCH (02:01)
[2016-10-30 02:46] VITALS: BP 110/48; PULSE 77; RESP 16; O2SAT 96
[2016-10-30 04:46] LABS: Mean Corpuscular Hemoglobin 31.2 pg (27.0-35.0); Mean Corpuscular Volume 95.2 fL (81-100)
[2016-10-30 04:51] VITALS: PULSE 110
[2016-10-30 05:07] LABS: INR 2.64 ratio
[2016-10-30 08:00] VITALS: PULSE 71
[2016-10-30 08:30] VITALS: BP 112/58; PULSE 75; RESP 24; O2SAT 95
[2016-10-30] MEDS ORDERED: Diltiazem CD 120 mg ER24 Capsule PO SCH (08:30)
[2016-10-30] MEDS: PrednisoLONE 1% 1 mL Ophthalmic Suspension LEFT_EYE SCH ×2 (08:39→12:50)
[2016-10-30] MEDS: KETOROLAC 0.5% LEFT_EYE SCH ×2 (08:39→12:50)
--- NOTE | 2016-10-30 10:59 | NUR ---
Case Management: Clarification of Patient Status: Observation from admit 10/29/16. Ralph White RN
[2016-10-30 11:53] VITALS: BP 117/57; PULSE 68; RESP 18; O2SAT 94
--- NOTE | 2016-10-30 13:39 | NUR ---
Evaluation completed. Please go to "Notes" then click on "Assessments and Notes" (bottom left corner of screen). Then select appropriate discipline tab on top of screen.
--- NOTE | 2016-10-30 14:13 | PCM.DIMED ---
Cresencio Pringle 10/30/16 1413: Discharge Instructions Date of Service Oct 30, 2016 Dates of Hospitalization Oct 29, 2016 at 21:03 Discharge Diagnosis Discharge Diagnosis 1. Acute encephalopathy. Present on admission. Resolved 2. Fever. Present on admission. Resolved 3. Low back pain s/p ground level fall. Present on admission 4. Hypertension, chronic. Present on admission 5. CAD s/p CABG, chronic. Present on admission 6. Atrial fibrillation, chronic. Present on admission 7. Sclerotic pelvic bone lesions. Present on admission Diet Heart Healthy Activity No restrictions Call your provider Fever or Chills, Shortness of breath, Chest pain, Excessive diarrhea Patient Instructions Follow up with Dr. Murillo within the next week Continue taking your home medications as before. Return to the ER if you have returning fevers, confusion, chest pain, shortness of breath, or falls. Follow-up Provider: Gonzalez Murillo DO Follow-up with PCP in: 1 week Hebre Sanabria MD 10/30/16 1717: Discharge Instructions Attending's Statement The patient was seen and examined together with Dr. Pringle on 10/30/2016 and I agree with the history, exam and plan as outlined in the note above. . Cresencio Pringle Oct 30, 2016 14:13 Heber Sanabria MD Oct 30, 2016 17:17
--- NOTE | 2016-10-30 14:39 | PCM.PHAPRO ---
Progress Back pain, confusion WARFARIN MANAGEMENT PER PHARMACY [facility] NTV DFF Date Oct 30-Oct INR 2.83 2.64 INR change -0.19 Warf Dose UNK 5 MG Therapeutic INR. Will continue home regimen and order warfarin 5 mg for this evening. Sandeep Yip, PharmD Sandeep Yip Oct 30, 2016 14:39
--- NOTE | 2016-10-30 15:15 | NUR ---
Case Management: DILLAN and "How Medicare Covers Self-Administered Drugs Given in Hospital Outpatient Settings" info provided with explanation to patient and spouse at the bedside at 1500. Signed GRIMALDO original placed in chart, copy to patient and spouse. Ralph White RN
--- NOTE | 2016-10-30 16:20 | PCM.DC.MED ---
Discharge Summary Date of Service Oct 30, 2016 Dates of Hospitalization Date of Hospital Admission Oct 29, 2016 at 21:03 Date of Discharge: Oct 30, 2016 Providers: Admitting Physician: Stanley Garcia MD Primary Care Physician: Gonzalez Murillo DO Attending Physician: Stanley Garcia MD Diagnosis at Time of Discharge Diagnosis at Time of Discharge 1. Acute encephalopathy. Present on admission. Resolved 2. Fever. Present on admission. Resolved 3. Low back pain s/p ground level fall. Present on admission 4. Hypertension, chronic. Present on admission 5. CAD s/p CABG, chronic. Present on admission 6. Atrial fibrillation, chronic. Present on admission 7. Sclerotic pelvic bone lesions. Present on admission Procedures XRay, CTs & MRIs Date of Service: 10/29/161935 PROCEDURE: CT ABDOMEN AND PELVIS WITH CONTRAST ([id number]) INDICATIONS: 86-year-old male on warfarin with sepsis of uncertain source. TECHNIQUE: After the administration of intravenous contrast, 5 mm thick sections acquired from the diaphragm to the symphysis. 5 mm coronal and sagittal reformats were acquired. For radiation dose reduction, the following was used: automated exposure control, adjustment of mA and/or kV according to patient size. COMPARISON: [facility], CT, CT ABD PELVIS W CON TRAUMA, 10/03/2016, 12:52. FINDINGS: Image quality: Excellent. ABDOMEN: Lung bases: Lung bases are clear. There is mild cardiomegaly status post median sternotomy. Pacemaker wires are again noted. Solid organs: Liver is normal in size and enhancement. Gallbladder contains multiple calcified and noncalcified gallstones as before. Biliary system is non dilated. Pancreas enhances normally. Mild splenomegaly is not significantly changed at 13.3 cm craniocaudal dimensions. No adrenal nodules. Kidneys demonstrate normal size, without hydronephrosis. Several bilateral renal cortical simple cysts are again noted. Peritoneum and bowel: Bowel loops demonstrate normal wall thickness and caliber. There is mild sigmoid colon diverticulosis, without acute diverticulitis. No free fluid or air. Nodes and vessels: No retroperitoneal or mesenteric adenopathy by size criteria. Aorta and inferior vena cava are normal in size, with widespread aortoiliac atherosclerosis. Miscellaneous: Small fat-containing periumbilical ventral hernia is present. PELVIS: Genitourinary: Bladder wall thickness is normal. Prostate gland is normal in size. Miscellaneous: There is small fat-containing left inguinal hernia. No inguinal adenopathy by CT size criteria. Bones: No suspicious bony lesions. Grade 1 L4-L5 spondylolisthesis from facet joint degeneration is again noted. No acute vertebral body compression fractures. Nonacute T12 vertebral body superior endplate compression fracture is unchanged. IMPRESSION: 1. A source of sepsis is not found within the abdomen or pelvis. 2. Multiple calcified and noncalcified gallstones again noted. 3. Mild splenomegaly as before, of uncertain etiology. 4. Mild sigmoid colon diverticulosis. 5. Several bilateral renal cortical simple cysts as before. 6. Small fat-containing left inguinal hernia. Dictated by: Urbano Wagner M.D. on 10/29/2016 at 19:58 Approved by: Urbano Wagner M.D. on 10/29/2016 at 20:08 ----- Date of Service: 10/29/16 1916 PROCEDURE: CT BRAIN WITHOUT CONTRAST ([id number]) INDICATIONS: 86-year-old male with altered mental status on warfarin. TECHNIQUE: Noncontrast 4.5 mm thick angled axial sections acquired from the foramen magnum to the vertex, with coronal reformats. COMPARISON: [facility], MR, STROKE PROTOCOL (PNL), 12/22/2013, 12: 30. [facility], CT, CT BRAIN W CON, 10/04/2016, 8:20. [facility], CT, CT BRAIN WO CON, 10/03/2016, 14:15. [facility] , CT, BRAIN W/O CONTRAST, 12/21/2013, 17:13. FINDINGS: Image quality: Several images are moderately degraded by patient motion. CSF spaces: Basal cisterns are patent. No extra-axial fluid collections. Ventricles are normal in size and shape. Brain: No midline shift. No new intracranial mass effects or hemorrhage. Previously noted meningioma near the left cerebellopontine angle is again noted , as well as parafalcine calcified meningioma at the vertex. Hammonds-white matter interface is normal. There is intracranial internal carotid and vertebral artery atherosclerosis. Skull and face: Calvarium and visualized facial bones are intact, without suspicious lesions. Sinuses: Visualized sinuses and mastoids are clear. IMPRESSION: 1. No acute intracranial abnormalities. 2. 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 Dictated by: Urbano Wagner M.D. on 10/29/2016 at 19:40 Approved by: Urbano Wagner M.D. on 10/29/2016 at 19:45 ----- Date of Service: 10/29/16 1748 PROCEDURE: X-RAY CHEST ONE VIEW, PORTABLE ([id number]) INDICATIONS: 86 year-old male with sepsis. TECHNIQUE: One view of the chest was acquired. COMPARISON: [facility], CR, XR CHEST 1VW (PORTABLE), 10/03/2016, 10: 39. [facility], CR, XR CHEST 2VW, 02/05/2016, 15:46. [facility], CR, XR CHEST 1VW (PORTABLE), 01/17/2016, 15:01. FINDINGS: Surgical changes and devices: Patient is status post coronary artery bypass grafting and aortic valve replacement. Left chest wall dual chamber pacemaker is again noted. Lungs and pleura: No pleural effusions or pneumothorax. Lungs are clear. Mediastinum: Mediastinal contours appear normal. There is mild cardiomegaly. There is aortic atherosclerosis. Bones and chest wall: No suspicious bony lesions. There is truncation of the lateral right clavicle as before, consistent with remote surgery and/or trauma. Overlying soft tissues appear unremarkable. IMPRESSION: Cardiomegaly, without acute cardiopulmonary disease. Dictated by: Urbano Wagner M.D. on 10/29/2016 at 18:38 Approved by: Urbano Wagner M.D. on 10/29/2016 at 18:39 Brief History Patient is a pleasant 86-year-old male with CAD s/p CABG and PPM, hypertension and atrial fibrillation presenting with low back pain and confusion. The patient is accompanied at bedside by family at time of visit. Of note, the patient was hospitalized last month after a ground level fall. Patient reports he continues to have intermittent back pain and leg weakness since his fall and has been going to physical therapy. Patient reports taking a nap after his physical therapy session today and when he stood up had severe low back pain. He says the back pain was in his lumbar area, left side greater than right. He describes it as a "grabbing pain" and was unable to stay standing. Patient's daughter reports he was confused and had difficulty talking. Patient was reportedly unsteady and unable to stand, requiring his family to carry him. They called a family friend that's an ER physician and it was recommended that he be brought to the ED for further evaluation. Patient reportedly had half a hydrocodone tablet and some Tylenol at home with relief of his pain. At time of visit, the patient reports no pain since arriving to the ED. In the ED, the patient had a recorded temperature of 38.9. He reports a cough of two weeks that is improving. With the cough there was initially some dark sputum but now it is a dry cough. He also reports occasional night sweats over the past two weeks with the onset of the cough. Patient otherwise denies chills, rhinorrhea, sore throat, nausea, emesis, diarrhea, dysuria, headache, dizziness, lightheadedness, acute vision change, myalgias, chest pain, shortness of breath. In the ED, vitals: temp 38.9, HR 94, RR 18 satting 95% on room air, BP 125/46. Chest x-ray without acute cardiopulmonary disease. CT brain without acute intracranial abnormalities and previously noted meningiomas near the left cerebellopontine angle and vertex are not significantly changed. CT abdomen and pelvis rather unremarkable for a source of sepsis. Hospital Course Patient is a pleasant 86-year-old male with CAD s/p CABG and PPM, hypertension and atrial fibrillation presenting with low back pain and confusion. 1. Acute encephalopathy. Present on admission. Resolved -CT brain reads no acute intracranial abnormalities. 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 -Uncertain etiology, possibly secondary to uncontrolled pain 2. Fever. Present on admission. Resolved -Temperature 38.9 on admit. Quickly resolved. CT abdomen showed no source of infection. Blood cultures pending. Viral PCR negative. Procalcitonin 0.45 - bacterial infection unlikely. Minimal cough with no other signs of infection clinically -Acetaminophen PRN 3. Low back pain s/p ground level fall. Present on admission -Patient hospitalized last month 10/03 - 10/05/2016 for this issue following fall -Pain control with acetaminophen, hydrocodone -PT evaluation - recommended outpatient physical therapy 4. Hypertension, chronic. Present on admission -Continue with home antihypertensive 5. CAD s/p CABG, chronic. Present on admission -Continue home statin, ASA 6. Atrial fibrillation, chronic. Present on admission -Continue diltiazem -Warfarin per pharmacy 7. Sclerotic pelvic bone lesions. Present on admission -Incidentally discovered on CT during previous hospitalization -Patient has outpatient follow up with Oncology Exam Vital Signs (Last) Date Time Temp Pulse Resp B/P Pulse Ox O2 Delivery O2 Flow Rate FiO2 10/30/16 11:53 36.8 68 18 117/57 94 Room Air Exam General: Patient lying comfortably in bed. No acute distress, well-developed, well-nourished, appropriately interactive HEENT: Normocephalic, atraumatic. External ears without defect. Pupils equal, round, and reactive to light. Anicteric sclerae, moist conjunctivae, and no lid lag. Oropharynx free of erythema and cobble stoning with moist mucosa. Neck: Supple. No lymphadenopathy or thyromegaly. Chest: Regular rate and rhythm. III/ systolic murmur at base. Well-healed sternal surgical incision. Pulmonary: Clear to auscultation bilaterally with no crackles, wheezes, or rhonchi. Normal respiratory effort with no use of accessory muscles. Abdomen: Bowel tones present. Soft, nontender, mild distension. Extremities: No clubbing, cyanosis, edema, or lymphadenopathy appreciated. Skin: Normal temperature, turgor, and texture; no rash, ulcers, or subcutaneous nodules appreciated. Neurological: Cranial nerves grossly intact. Normal muscle strength, tone, and bulk. Motor strength 5/5 upper and lower extremities bilaterally. Coordination and sensory function within normal limits. Psychiatric: Normal mood and affect. Alert and oriented to person, place, and time. Test 10/29/16 17:55 10/29/16 18:25 10/30/16 04:39 Neutrophils (%) (Auto) 81.0% (40-74) Lymphocytes (%) (Auto) 15.3% (14-46) Monocytes (%) (Auto) 3.5% (4-12) Eosinophils (%) (Auto) 0.1% (0-5) Basophils (%) (Auto) 0.1% (0-3) Sodium Level 134mEq/L (134-144) Potassium Level 4.6mEq/L (3.5-5.2) Chloride Level 98mEq/L (97-108) Carbon Dioxide Level 21mmol/L (18-29) Blood Urea Nitrogen 23mg/dL (8-27) Creatinine 1.08mg/dL (0.76-1.27) Estimat Glomerular Filtration Rate 69mL/min (>59) Glucose Level 104mg/dL (60-99) Lactic Acid Level 1.2mmol/L (0.4-2.0) Calcium Level 8.4mg/dL (8.5-10.1) Magnesium Level 2.0mg/dL (1.6-2.6) Total Bilirubin 0.7mg/dL (0.0-1.2) Aspartate Amino Transf (AST/SGOT) 25U/L (0-50) Alanine Aminotransferase (ALT/SGPT) 22U/L (0-44) Alkaline Phosphatase 76U/L (25-160) Troponin T < 0.010ug/L (0.0-0.011) Total Protein 7.1g/dL (6.4-8.4) Albumin 3.4g/dL (3.4-5.0) Procalcitonin 0.45ng/mL (0.00-0.08) Thyroid Stimulating Hormone (TSH) 1.270uIU/mL (0.450-4.500) Urine Color Yellow (YELLOW) Urine Appearance Clear (CLEAR,HAZY) Urine pH 6.0 (5.0-8.0) Urine Specific [place] 1.025 (1.003-1.035) Urine Protein Tracemg/dL (NEG,TRACE) Urine Glucose (UA) Negativemg/dL (NEGATIVE) Urine Ketones Tracemg/dL (NEGATIVE) Urine Occult Blood Moderate (NEGATIVE) Urine Nitrite Negative (NEGATIVE) Urine Bilirubin Negative (NEGATIVE) Urine Urobilinogen Normalmg/dL (NORMAL) Urine Leukocyte Esterase Negative (NEGATIVE) Urine RBC 3-10/hpf (0-2) Urine WBC 0-5/hpf (0-5) Urine Epithelial Cells None/hpf (NONE-MOD) Urine Crystals None seen (NONE SEEN) Urine Bacteria Few/hpf (NONE-FEW) Urine Hyaline Casts None/lpf (NONE) Urine Granular Casts None seen (NONE SEEN) Urine Waxy Casts None seen (NONE SEEN) Urine Red Blood Cell Casts None seen (NONE SEEN) Urine White Blood Cell Casts None seen (NONE SEEN) Urine Mucus None seen (None Seen) Urine Trichomonas None seen (NONE SEEN) Urine Yeast None (NONE SEEN) Urinalysis Comment None Urine Culture Reflexed Not indicated White Blood Count 5.5th/mm3 (3.8-10.1) Red Blood Count 3.14mil/mm3 (4.40-5.80) Hemoglobin 9.8g/dL (13.8-17.2) Hematocrit 29.9% (41.0-50.0) Mean Corpuscular Volume 95.2fL (81-100) Mean Corpuscular Hemoglobin 31.2pg (27.0-35.0) Mean Corpuscular Hemoglobin Concent 32.8% (32.0-37.0) Red Cell Distribution Width 14.7% (12.3-15.4) Platelet Count 161bil/L (150-400) Prothrombin Time 28.8sec (8.1-12.5) Prothromb Time International Ratio 2.64ratio Discharge Medications Discharge Medications ([DoTerra supplements]) 3 CAPSULE PO DAILY (Reported) Aspirin (Aspirin) 81 Mg Tablet 81 MG PO DAILY (Reported) Citalopram (Citalopram) 10 Mg Tablet 10 MG PO DAILY (Reported) Diltiazem ER (Cartia XT) 120 Mg Cap.er.24h 120 MG PO DAILY (Reported) Ketorolac Tromethamine (Ketorolac Tromethamine) 5 Ml Drops 1 GTTS AFFECT_EYE TID (Reported) Losartan Potassium (Losartan Potassium) 50 Mg Tablet 50 MG PO DAILY (Reported) Prednisolone Acetate (Prednisolone Acetate) 5 Ml Drops.susp 1 DROP AFFECT_EYE TID (Reported) Warfarin Sodium (Warfarin Sodium) 5 Mg Tablet 5 MG PO DAILY (Reported) Followup Plan Discharge Diet: Heart Healthy Discharge Activity: No restrictions Patient Instructions Follow up with Dr. Murillo within the next week Continue taking your home medications as before. Return to the ER if you have returning fevers, confusion, chest pain, shortness of breath, or falls. Follow-up Provider: Gonzalez Murillo DO Follow-up with PCP in: 1 week Time spent Less than 30 minutes was spent in preparation of discharge with greater than 50 % of that time dedicated to patient counseling and coordination of care. . Attending Statement The patient was seen and examined together with Dr. Pringle on 10/30/2016 and I agree with the history, exam and plan as outlined in the note above. . copies to: Gonzalez Murillo Andrew R Oct 30, 2016 14:16 Heber Sanabria MD Oct 30, 2016 17:18
--- NOTE | 2016-10-30 16:41 | NUR ---
DISCHARGE Pt discharged at 1600 with all all his belongings and his packet of discharge paperwork. He left for home via wheelchair and private vehicle, driven by his . The pt verbalized understanding of all discharge teaching and information presented, including follow up appointment info. The pt left with vitals WNL, and A&O x3.
[2016-10-30] MEDS ORDERED: Warfarin 5 MG, Warfarin 2.5 MG PO ONE ×2 (17:00)
[2016-11-05] MEDS ORDERED: SALM1CAP4 PO (12:36)
[2016-11-05] MEDS ORDERED: OMEG-38 PO (12:36)
[2016-11-05] MEDS ORDERED: MULT-1018 PO (12:36)
[2016-11-05] MEDS ORDERED: CITA10TA14 PO (12:36)
[2016-12-09] MEDS ORDERED: UBID1CAP52 PO (11:05)
[2016-12-09] MEDS ORDERED: ROSU5TAB PO (11:05)
== END 2016-10-30 15:55 | disposition home or self-care (01) ==
LOC: SED 17:52 → PCC 21:03 → INTOOBSV 21:03
PROVIDERS: ADMIT Hospitalist; ATTEND Hospitalist
DX: G93.40 Encephalopathy, unspecified (principal); M54.5 Low back pain; R50.9 Fever, unspecified; Z91.81 History of falling; I10 Essential (primary) hypertension; I25.10 Atherosclerotic heart disease of native coronary artery without angina pectoris; Z95.1 Presence of aortocoronary bypass graft; I48.2 Chronic atrial fibrillation; M89.9 Disorder of bone, unspecified; F32.9 Major depressive disorder, single episode, unspecified; Z85.46 Personal history of malignant neoplasm of prostate; Z95.0 Presence of cardiac pacemaker; Z95.2 Presence of prosthetic heart valve; Z87.891 Personal history of nicotine dependence; Z79.82 Long term (current) use of aspirin; Z79.01 Long term (current) use of anticoagulants
CPT/HCPCS: 36415; 70450; 71010; 74177; 80053; 81000; 82308; 83605; 83735; 84443; 84484; 85025; 85027; 85610; 87040; 87077; 87186; 87633; 87804; 93005; 96361; 96365; 97161; 99285; G0378; G8978; G8979; G8980; J2543; J7030; Q9967

== ENCOUNTER 2016-11-21 15:26 | Inpatient (IN) | payer MEDICARE, OTHER ==
[~2016-11-21] VITALS: Ht 180.3 cm; Wt 71.4 kg
[~2016-11-21 15:26] MED LIST changes: -0.9% Sodium Chloride 1,000 ML IV ONE; -ATOR20TA PO; +CITA10TA14 PO; -CITA10TA9 PO; +KETO5DRO14 RIGHT_EYE; +MULT-1018 PO; -OFLO5DRO9 LEFT_EYE; +PRED5DRO6 AFFECT_EYE; -Piperacillin-Tazo 3.375 Gm Inj 3.375 GM in Dextrose 5% Minibag Plus 50 ML IV ONE; +[UNRECOGNIZED DRUG - OTHER] PO
[2016-11-21 15:36] VITALS: BP 105/44; PULSE 63; RESP 14; O2SAT 95
--- NOTE | 2016-11-21 15:37 | ED.REPORT ---
HPI-General Illness Date of Service Nov 21, 2016 ED Provider: Dr. Gonzalez Pt is an 86 y/o male anticoagulated on Warfarin w/ a hx of CAD s/p CABG x5 and pacemaker, prostate CA in remission, HTN, A-fib, presenting to the ED from another ED patient room due to a witnessed syncopal episode. The patient was in an ED patient room with his who was a patient. His head nodded forward and he was snoring and the patient's daughter and were trying to wake him up but he was unresponsive to voice and became incontinent of urine. This episode lasted 3-4 minutes. The STAT ED team was called and he was found to be unconscious and was sent to the CT scan immediately. After he has returned from the CT scanner, he is now feeling normal other than being generally weak. He is alert and oriented. The patient states that prior to this episode his vision became white and he was lightheaded. Pt denies CP, VELASQUEZ, abdominal pain, N/V/D, fever, chills, SOB, cough, focal numbness or weakness, speech change, vision loss. Pt denies any history of seizures. Nursing Notes Stated Complaint: STROKE Chief Complaint: General Complaint Nursing Notes Reviewed: Yes Allergies: Coded Allergies: lisinopril (Verified Allergy, Mild, cough, 11/21/16) hydromorphone (Verified Adverse Reaction, Severe, hallucinations, 11/21/16) Scheduled ([DoTerra supplements]) 3 CAPSULE PO DAILY Aspirin (Aspirin) 81 Mg Tablet 81 MG PO DAILY Citalopram Hydrobromide (Celexa) 10 Mg Tablet 10 MG PO DAILY Diltiazem ER (Cartia XT) 120 Mg Cap.er.24h 120 MG PO DAILY Ketorolac Tromethamine (Ketorolac Tromethamine) 5 Ml Drops 1 GTTS AFFECT_EYE TID Losartan Potassium (Losartan Potassium) 50 Mg Tablet 50 MG PO DAILY Moxifloxacin Ophth Soln (Vigamox Ophth Soln) 3 Ml Soln 1 DROP RIGHT_EYE QID Multivitamin (Multi Vitamin Daily) 1 Each Tablet 1 EACH PO DAILY Prednisolone Acetate (Prednisolone Acetate) 5 Ml Drops.susp 1 DROP AFFECT_EYE QID Warfarin Sodium (Warfarin Sodium) 5 Mg Tablet 5 MG PO DAILY General Time Seen by MD: 15:37 Chief Complaint Other (Syncope) Hx Obtained From: Patient, Spouse Arrived By: Walk-in (from another ED room) Sudden in Onset?: Yes Onset Occurred: Just prior to arrival Symptom Duration: 1 - 15 minutes Severity: Current: No pain currently Severity: Maximum: No pain Similar Sx Previous: No Past Medical History Past Medical History Notes: PCP: Dr. Murillo Past Medical History Heart murmur Bony lesions Sclerotic pelvic lesions Prostate cancer reportedly in remission CAD s/p CABG x5 Hypertension Atrial fibrillation Depression Past Surgical History CABG x5 Shoulder surgery Medtronic Pacemaker insertion Reports: Pacemaker insertion Smoking History Former Smoker Social History Alcohol Use: "Social" Drug Use: Denies drug use Other Social History: Good social support, Ambulatory Status Independent Review of Systems Full Review of Systems Constitutional: Denies: Chills, Fever Respiratory: Denies: Non-productive cough, Shortness of breath Cardiovascular: Denies: Chest pain, Dyspnea on exertion GI: Denies: Abdominal pain, Diarrhea, Nausea, Vomiting Neurologic: Reports: Bladder dysfunction, Change LOC, Lightheaded, Syncope, Vision change, Weakness, Denies: Bowel dysfunction, Dizziness, Focal weakness, Headache, Numbness, Shaking, Slurred speech, Spinning sensation, Unable to speak Complete sys rev & neg: except as marked. Physical Exam Vital Signs Vital Signs Date Time Temp Pulse Resp B/P Pulse Ox O2 Delivery O2 Flow Rate FiO2 11/21/16 18:06 61 17 119/53 96 Room Air 11/21/16 17:10 60 104/75 97 Room Air 11/21/16 15:36 36.5 63 14 105/44 95 Room Air Initial VS: Reviewed, Vital signs normal Head / Eyes: Atraumatic, Normocephalic, PERRL Neck: Supple, Full range of motion Respiratory: Breath sounds normal, Clear to auscultation, No respiratory distress Abdomen / GI: Soft, Non-tender, No guarding, No rebound, No distention Extremities: Vascular intact, Neuro intact, No swelling, No tenderness Skin: Warm, Dry, No cyanosis Psychiatric: Mood/affect normal, Behavior normal, Normal thought content General/Constitutional: Awake, Alert, No acute distress, Cooperative, Not toxic appearing ENT: Atraumatic, Airway patent Mouth: Positive: Mucous membranes dry Cardiovascular: Heart rate NL, Regular rhythm, Cap refill not delayed, Peripheral circulation NL Heart Sounds / Murmur: Positive: Systolic murmur present.. (Left upper sternal border) Rectum / Perineum: Blood - occult heme -, No gross blood Neurologic: Oriented X3, Speech NL, No motor deficits, No sensory deficits, CN II - XII intact, Cerebellar NL, Memory NL Interpretation & Diagnostics Lab Results Interpretation Result Diagram: 11/21/16 1545 11/21/16 1545 Test 11/21/16 15:45 White Blood Count 9.0th/mm3 (3.8-10.1) Red Blood Count 3.64mil/mm3 (4.40-5.80) Hemoglobin 11.4g/dL (13.8-17.2) Hematocrit 35.2% (41.0-50.0) Mean Corpuscular Volume 96.7fL (81-100) Mean Corpuscular Hemoglobin 31.3pg (27.0-35.0) Mean Corpuscular Hemoglobin Concent 32.4% (32.0-37.0) Red Cell Distribution Width 15.4% (12.3-15.4) Platelet Count 294bil/L (150-400) Neutrophils (%) (Auto) 44.6% (40-74) Lymphocytes (%) (Auto) 50.1% (14-46) Monocytes (%) (Auto) 3.8% (4-12) Eosinophils (%) (Auto) 1.1% (0-5) Basophils (%) (Auto) 0.2% (0-3) Prothrombin Time 29.2sec (8.1-12.5) Prothromb Time International Ratio 2.67ratio Activated Partial Thromboplast Time 32.4sec (22.8-33.0) Sodium Level 135mEq/L (134-144) Potassium Level 4.2mEq/L (3.5-5.2) Chloride Level 99mEq/L (97-108) Carbon Dioxide Level 19mmol/L (18-29) Blood Urea Nitrogen 18mg/dL (8-27) Creatinine 1.01mg/dL (0.76-1.27) Estimat Glomerular Filtration Rate 74mL/min (>59) Glucose Level 151mg/dL (60-99) Calcium Level 8.7mg/dL (8.5-10.1) Total Bilirubin 0.4mg/dL (0.0-1.2) Aspartate Amino Transf (AST/SGOT) 21U/L (0-50) Alanine Aminotransferase (ALT/SGPT) 11U/L (0-44) Alkaline Phosphatase 85U/L (25-160) Total Protein 7.3g/dL (6.4-8.4) Albumin 3.7g/dL (3.4-5.0) Hold Olguin Top Tube Received (Received) ECG Interpretation ECG Interpretation: AV dual paced rhythm rate 61 Time: 15:56 Interpreted by: ED physician Normal ECG Interpretation: No acute ischemic changes, No change from prior ECGs CT Head Interpretation IMPRESSION: No acute process. Findings relayed to Dr. Dayron Rosado via ER front office supervisor staff Concepcion on 11.21.16 at 1534 hrs. This study fulfills neurological imaging criteria for inclusion or exclusion of acute stroke therapies based on available published neurological guidelines. Dictated by: Cody Guathier M.D. on 11/21/2016 at 15:33 Approved by: Cody Gauthier M.D. on 11/21/2016 at 15:35 Study: Head CT no contrast Interpretation / Wet Read by: Interpret - Radiologist Re-Eval/Medical Decision Med Decision/Clinical Course 86-year-old male for history of coronary artery disease was present in a different ER room with his who is being evaluated for hypertension. Just prior to her discharge the patient slumped over and became completely unresponsive. Rapid response was called and I arrived to observe the patient. He had lost control of his bladder and was completely unresponsive. He did not appear to be breathing. He was moved to a hospital bed where I was able to appreciate a pulse. The entire episode lasted approximately [address] Dayron Rosado was in the room and after a brief discussion patient was sent straight to CT scanner for head CT and code stroke was all by Dr. Dayron Rosado. Head CT was negative and when the patient returned from CT scan he was alert and oriented 3 there were no focal neurologic findings. He felt well and kept requesting to use the commode. He was monitored for several hours and EKG, chest x-ray, and lab work were unrevealing. His pacemaker was interrogated and nothing abnormal was noted. He was recently admitted last month for acute encephalopathy and strep mitis bacteremia. It is unclear to me at this time what caused the patient's symptoms. Patient has no history of seizures. There was no convulsing There was no post ictal phase. Given his age and history I am not comfortable sending him home after an episode like this and so I have requested admission for further evaluation and monitoring. Case discussed with Dr. Meyer who agrees. Time of Eval: 17:46 Re-Evaluation/Progress Note: Pt rechecked. Informed pt of need for admission for further syncope workup. Pt understands and agrees with plan for admission. All questions addressed. Consultation #1: Call Returned at: 17:15 Jira Developer: Agrees with eval, Agrees with plan Note: Medtronic pacemaker interrogation - no abnormalities. Consultation #2: Referral / Consult Name: Ruby Meyer DO Consulted With: Hospitalist Call Returned at: 18:30 Jira Developer: Will see patient, Agrees with eval, Agrees with plan, Accepts admit Counseled Regarding: Diagnosis, Lab results, Need for admission Discharge & Departure Primary Impression: Syncope Syncope type: unspecified Qualified Code: R55 - Syncope and collapse Disposition: ADMITTED TO HOSPITAL Discharge Condition All VS Reviewed: Yes Condition: Stable Referrals: Gonzalez Murillo DO (PCP) Tamar Attestation Portions of this note were transcribed by Morgan Cabrera. I, Dr. Gonzalez, personally performed the history, physical exam and medical decision-making; I reviewed and confirmed the accuracy of the information in the transcribed note. Signed by Tamar Lyons, 11/21/16 - 1600 copies to: Gonzalez Murillo Gary R DO Nov 21, 2016 15:37 MORGAN CABRERA Nov 21, 2016 15:39
--- NOTE | 2016-11-21 15:41 | DRSVH ---
PROCEDURE: CT BRAIN (TPA) ([id number]) INDICATIONS: Stroke TECHNIQUE: Noncontrast 4.5 mm thick angled axial sections acquired from the foramen magnum to the vertex, with c oronal reformats. COMPARISON: [facility], CT, CT BRAIN WO CON, 10/29/2016, 19:29. FINDINGS: Image quality: Excellent. CSF spaces: Basal cisterns are patent. No extra-axial fluid collections. The ventricles are symmet taisha in size and shape. Brain: No intracranial bleeds. 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 There is cerebral volume loss for age, with resultant ventricular and sulcal prominence. There are periventricular and deep white matter chronic small vessel ischemic changes. There is intracranial i nternal carotid artery atherosclerosis. Skull and face: Calvarium and visualized facial bones appear intact, without suspicious lesions. Sinuses: Visualized sinuses and mastoids are clear. IMPRESSION: No acute process. Findings relayed to Dr. Dayron Rosado via ER front desk agent staff Concepcion on 11.21.16 at 153 4 hrs. This study fulfills neurological imaging criteria for inclusion or exclusion of acute stroke therapie s based on available published neurological guidelines. Dictated by: Cody Gauthier M.D. on 11/21/2016 at 15:33 Approved by: Cody Gauthier M.D. on 11/21/2016 at 15:35
[2016-11-21 15:54] LABS: BASOPHILS % (AUTO) 0.2 % (0-3); EOSINOPHILS % (AUTO) 1.1 % (0-5)
[2016-11-21 15:57] LABS: MONOCYTES % (AUTO) 3.8 % (4-12); Mean Corpuscular Hemoglobin 31.3 pg (27.0-35.0); Mean Corpuscular Volume 96.7 fL (81-100); NEUTROPHILS % (AUTO) 44.6 % (40-74); Platelet Count 294 bil/L (150-400)
[2016-11-21] MEDS ORDERED: 0.9% Sodium Chloride 1,000 ML IV ONE (16:07)
[2016-11-21 16:12] LABS: INR 2.67 ratio
[2016-11-21 16:25] LABS: TROPONIN T < 0.010 ug/L (0.0-0.011)
[2016-11-21 17:10] VITALS: BP 104/75; PULSE 60; O2SAT 97
[2016-11-21 18:06] VITALS: BP 119/53; PULSE 61; RESP 17; O2SAT 96
--- NOTE | 2016-11-21 18:32 | DRSVH ---
PROCEDURE: X-RAY CHEST, TWO VIEWS ([id number]) INDICATIONS: syncope TECHNIQUE: 2 views of the chest were acquired. COMPARISON: None. FINDINGS: Surgical changes and devices: Left-sided pacer. Median sternotomy. Lungs and pleura: No pleural effusions or pneumothorax. Lungs are clear. Mediastinum: Mediastinal contours are normal. Heart size is normal. Bones and chest wall: No suspicious bony abnormalities. Soft tissues appear unremarkable. IMPRESSION: No acute process. Dictated by: Cody Gauthier M.D. on 11/21/2016 at 18:31 Approved by: Cody Gauthier M.D. on 11/21/2016 at 18:31
[2016-11-21] MEDS ORDERED: Alum-Mag Hydrox-Simeth 30 mL Suspension PO PRN ×2 (18:40→22:15)
[2016-11-21] MEDS ORDERED: Ondansetron 2 mg/mL 2 mL Inj IVPUSH PRN ×2 (18:40→22:15)
[2016-11-21 18:57] VITALS: BP 105/44; PULSE 67; RESP 15; O2SAT 94
[2016-11-21] MEDS ORDERED: VIGAMOX RIGHT_EYE (20:04)
--- NOTE | 2016-11-21 20:12 | NUR ---
Admit Note Pt arrived to room 3015 at 1930. Alert and oriented. Able to transfer self. Not in pain. VSS-diastolic on low side.
[2016-11-21 20:19] VITALS: BP 149/77; PULSE 67; RESP 20; O2SAT 98
[2016-11-21] MEDS ORDERED: Polyethylene Glycol (PEG) 17 Gm Powder PO PRN (22:15)
[2016-11-21] MEDS ORDERED: KETOROLAC 0.5% BOTH_EYES PRN (22:45)
--- NOTE | 2016-11-21 23:47 | PCM.HPMED ---
Subjective Date of Service Nov 21, 2016 Primary Provider: Admitting Physician: Ruby Meyer DO Primary Care Physician: Gonzalez Murillo DO Attending Physician: Ruby Meyer DO Chief Complaint: Syncope History of Present Illness: Mr. Adam is a 86-year-old male with past medical history of CAD s/p CABG 5 with dual-chamber pacemaker, prosthetic heart valve 2013, HTN, HLD, A-fib on warfarin, prostate CA in remission and anxiety was in the [facility] ED today with his who was being seen for hypertension (not admitted). He was in the room with his and daughter when he states his vision became white and blurry and "passed out". Patient's daughter Parul also present in the room at time of interview states patient suddenly rolled his head backward and began to snore. She reports that she could not wake him up called for help code stroke was activated. This time patient became incontinent of urine. There is no reported shaking or tremors from the patient. Total episode lasted approximately 4 minutes, code stroke called the patient reports that he woke up in a hospital gurney as he was being wheeled into the CT scan room, upon regaining consciousness he did not feel abnormal in any way. Denies any headaches, visual disturbances, neurologic deficits or any weakness or numbness in any of his extremities. He did state before this episode he did have a full bladder and was just about to go to the bathroom. He reports that this has never happened to him before though does endorse an episode of "white out" in his vision approximately 1 month prior which immediately resolved with no further symptoms. He denies any history of seizures. Patient denies currently having or experiencing any symptoms leading up to this event of any chest pain, shortness of breath, headache, visual disturbances, abdominal pain, nausea or vomiting, fever, chills, cough, focal numbness or weaknesses, speech changes. Of note patient was hospitalized in October 2016 for acute encephalopathy and found to have Streptococcus mitis bacteremia. Patient's discharge summary from 10/30/2016 does not mention Streptococcus mitis bacteremia however follow-up oncology note does mention it. Her outpatient records patient looks to be started on Levaquin 500 mg daily starting on 11/04/2016. Patient does endorse taking 12 days of antibiotic and has not reported any fevers at home though does endorse a consistent lethargy over the last 2 weeks. Often taking naps during the day which is abnormal for him. He was also taken off his citalopram during this antibiotic course which she been taking consistently for 2 years prior to this event. He recently restarted this medicine yesterday. Echo report from 11/13/2016 showed normal left ventricular size wall thickness with EF of 55% the prosthetic valve tears to be well seated with no evidence of valvular stenosis. No insufficiency was appreciated. No appreciable change from previous studies. A comprehensive review of systems was conducted with the patient and found to be negative except as above in the history of present illness. Allergies Coded Allergies: lisinopril (Verified Allergy, Mild, cough, 11/21/16) hydromorphone (Verified Adverse Reaction, Severe, hallucinations, 11/21/16) Home Medications Aspirin 81 mg daily Citalopram 10 mg daily Tiazac 120 mg daily Ketorolac tromethamine 5 mL drops 3 times a day Losartan 50 mg daily Moxifloxacin ophthalmic solution 3 mL Multivitamin daily Prednisone acetate 5 mm drops Warfarin sodium 5 mg tablet Doterra supplements [facility] Jair Argueta [id number] 03/05/2016 03:00 PM 1/6 Right bundle branch block Mobitz type 2 second degree atrioventricular block Pneumonia of left lower lobe due to infectious organism Coronary atherosclerosis Acute renal failure Murmur Atrial fibrillation Hyperlipidemia Paroxysmal atrial fibrillation Valvular heart disease Polyarthritis Elevated PSA Bradycardia Contusion of rib Essential hypertension Subungual hematoma, hand Cardiac pacemaker Subconjunctival hemorrhage Anxiety URI CAD - Coronary artery disease Vitamin B12 deficiency Acute kidney failure Hematuria Cancer screening follow up half-way (current) use of anticoagulants Essential hypertension Heart valve replaced S/P AVR Syncope and collapse Depressive disorder Surgical History CABG Pacemaker placement Shoulder surgery Left cataract Bioprosthetic heart valve Family History Mother at 96 years old from "old age" Father in his 80s from cardiac cause Social History Hx Alcohol Use: Yes (small nightly wine) Hx Substance Use: No Smoking Status: Former Smoker Exam Vital Signs Vital Sign - Last Date Time Temp Pulse Resp B/P Pulse Ox O2 Delivery O2 Flow Rate FiO2 11/21/16 18:57 67 15 105/44 94 Room Air 11/21/16 15:36 36.5 Exam General: No acute distress, well-developed, well-nourished, sitting up in bed appropriately interactive HEENT: Normocephalic, atraumatic. External ears without defect. Pupils equal, round, and reactive to light and accommodation. Anicteric sclerae, moist conjunctivae, and no lid lag. Oropharynx free of erythema and cobble stoning with moist mucosa. Neck: Supple with full range of motion. No jugular venous distension. No bruits. Cardiovascular: Regular rate and rhythm with soft blowing murmur heard best at systole in left sternal border second intercostal space. Pulmonary: Clear to auscultation upper and lower lobes bilaterally with no crackles, wheezes, or rhonchi. Normal respiratory effort with no use of accessory muscles. Abdomen: Bowel tones present. Soft, nontender, nondistended. Extremities: No clubbing, cyanosis, edema, or lymphadenopathy appreciated. Skin: Normal temperature, turgor, and texture; no rash, ulcers, or subcutaneous nodules appreciated. Neurological: Cranial nerves grossly intact. Normal muscle strength, tone, and bulk. Reflexes, coordination, and sensory function within normal limits. No known gait impairment. Psychiatric: Normal mood and affect. Alert and oriented to person, place, and time. Lab and Diagnostics Result Diagram: 11/21/16 1545 11/21/16 1545 X-Rays, CTs and MRIs . CT BRAIN (TPA) IMPRESSION: No acute process. Findings relayed to Dr. Dayron Rosado via ER dental front office assistant staff Concepcion on 11.21.16 at 1534 hrs. This study fulfills neurological imaging criteria for inclusion or exclusion of acute stroke therapies based on available published neurological guidelines. Dictated by: Cody Gauthier M.D. on 11/21/2016 at 15:33 X-RAY CHEST, TWO VIEWS IMPRESSION: No acute process. Dictated by: Cody Gauthier M.D. on 11/21/2016 at 18:31 12-lead ECG ECG Interpretation: AV dual paced rhythm rate 61 Time: 15:56 Interpreted by: ED physician Normal ECG Interpretation: No acute ischemic changes, No change from prior ECGs Assessment & Plan Patient is a pleasant 86-year-old male with CAD s/p CABG, hypertension and atrial fibrillation admitted for syncopal episode. Hospital day 1 1. Syncopal episode, present on admission. Resolved. Patient has no history of seizures or previous syncopal episodes, no seizure-like activity noted during event and patient was not postictal after event. No arrhythmias were noted on EKG, pacemaker interrogation showed no abnormalities. INR is therapeutic, and recent echo from 11/13/2016 made no mention of thrombus or valvular endocarditis. EF was 55% with normal right and left ventricular size and function. The prosthetic valve was seen to be well seated with no stenosis. Pt was recently hospitalized for bacteremia though currently shows no sign of infection. Pt is not expressing any CVA like symptoms. Current symptoms are most likely secondary to a neurocardiogenic etiology, patient had been very physically and emotionally stressed leading up to today's ED visit for his . 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 - Recommend orthostatic in the a.m. - Patient placed on telemetry - Initial troponin negative, continue to trend - Blood cultures pending - Procal pending - Continue to monitor - In reviewing outpatient records after admission I did find mention of a history of syncope with collapse. This is most likely secondary to the arrhythmia which led to his pacemaker placement - recommend additional interview regarding this. 2. A-fib. Not present on admission. Stable - Continue with home diltiazem 120mg daily - Continue home warfarin, pharmacy to dose - Tele as above 3. Hypertension, present on admission. Stable. Pt was borderline hypotensive in ED, by time of admission BP was 149/77. - Continue home Losartan 50mg daily, 1st dose given to be given this evening. 4. CAD, s/p CABG. Present on admission. Stable. Pt reports on CP Sx. ECHO as - Pt is not on a home statin - Lipid panel pending - Continue home ASA 81mg daily - ECHO as above 5. Anxiety, present on admission. Ongoing - Continue home citalopram 10mg daily Pain Evaluation: Adequate Pain Control GI Prophylaxis: Proton Pump Inhibitor VTE Prophylaxis: Theraputic Anticoag with Warfarin Resuscitation Status: CPR: Attempt Resuscitation Attending Statement The patient was seen and examined together with Dr. terrazas staff on 11/22/2016 and I agree with the history, exam and plan as outlined in the note above. KAREN LIM DO Nov 21, 2016 20:04 Carissa Allen DO Nov 22, 2016 06:44
[2016-11-21] MEDS ORDERED: Pantoprazole 20 mg ER24 Tablet PO PRN (23:50)
[2016-11-22] VITALS (11 sets, daily range): BP systolic 120–156; BP diastolic 58–80; PULSE 60–81; RESP 17–18; O2SAT 95–98
[2016-11-22 07:15] LABS: BASOPHILS % (AUTO) 0.4 % (0-3); EOSINOPHILS % (AUTO) 3.7 % (0-5); MONOCYTES % (AUTO) 5.6 % (4-12); Mean Corpuscular Hemoglobin 31.3 pg (27.0-35.0); NEUTROPHILS % (AUTO) 58.4 % (40-74); Platelet Count 225 bil/L (150-400)
[2016-11-22 07:33] LABS: INR 2.55 ratio
[2016-11-22] MEDS: Diltiazem CD 120 mg ER24 Capsule PO SCH (10:01)
[2016-11-22] MEDS: PrednisoLONE 1% 1 mL Ophthalmic Suspension BOTH_EYES SCH ×4 (10:02→21:56)
[2016-11-22 10:35] LABS: TROPONIN T 0.01 ug/L (0.0-0.011)
--- NOTE | 2016-11-22 11:11 | NUR ---
Evaluation completed. Please go to "Notes" then click on "Assessments and Notes" (bottom left corner of screen). Then select appropriate discipline tab on top of screen. Addendum: 11/22/16 at 1112 by JOVITA RHODES Spoke with RN. Patient upgraded to thin/regular this am. No s/s aspiration. No evaluation needed. Screen completed. AGRICULTURE SCIENTIST to sign off. Refer with any new or worsening condition
--- NOTE | 2016-11-22 12:55 | NUR ---
DILLAN explained and signed. Copy of DILLAN and Medicare self administered medication information provided. Family members at bedside during explanation.
--- NOTE | 2016-11-22 14:54 | PCM.PHAPRO ---
Progress Warfarin Management by Pharmacy: -Indication: afib -Inr Goal: 2-3 -CHADSVASc Score: 3 -Home Dose: warfarin 5mg per h & p -Drug Interactions: none -Concurrent antiplatelet rx: Asa 81mg, citalopram 10mg -Coagulation Trends: -Nov 22-Nov 2.67 2.55 -0.12 -Plan: will continue with home dose of warfarin 5mg this evening. serial inr's have been ordered Lo Shoemaker [facility] Nov 22, 2016 14:54
[2016-11-22] MEDS ORDERED: KETO5DRO80 LEFT_EYE (14:56)
--- NOTE | 2016-11-22 16:06 | NUR ---
Social Work- Initial Assessment Data: See Initial Assessment. Pt is a 86 year old male admitted 11/21/16 for syncope per H&P. Pt's insurance is [employer] and [employer]. Pt's PCP is Gonzalez Murillo DO. SW spoke with pt and daughter Parul at bedside regarding discharge plan, SW role explained. Pt alert and oriented x3. 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 Pt uses no DME and drives. Pt has no HH history or SNF history. Pt has no LTC insurance or VA benefits. Pt has DPOA on file, DPOA is Janeen. Pt to discharge home with daughter to transport via POV. SW left phone number and plan on whiteboard. No anticipated discharge needs. SW will continue to follow if needs arise. 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 Plan: Pt to discharge home with daughter to transport via POV. No anticipated discharge needs. SW will continue to follow if needs arise. ALFA Zepeda Addendum: 11/22/16 at 1609 by JEN CASTELLON SS Amended: Links added.
--- NOTE | 2016-11-22 16:23 | PCM.PNMED ---
Subjective Date of Service Nov 22, 2016 Subjective Jair Argueta is an 86-year-old male with CAD s/p 5 vessel CABG, aortic stenosis status post prosthetic valve, hypertension, and atrial fibrillation admitted for a syncopal episode. Hospital day #2. Overnight: There were no acute events. Telemetry overnight was AV paced sinus rhythm, heart rate 60- 80's, without ectopy. The patient is resting in bed comfortably and in no acute distress. He denies headache, palpitations, shortness of breath, chest pain, abdominal pain, nausea , vomiting, fever, chills, dysuria, diarrhea or constipation. He is voiding and eliminating without difficulty. He is up ambulating without assistance. . Exam Vital Signs Vital Sign - Last Date Time Temp Pulse Resp B/P Pulse Ox O2 Delivery O2 Flow Rate FiO2 11/22/16 10:20 81 11/22/16 09:56 156/80 11/22/16 09:52 18 11/22/16 09:51 36.9 96 Room Air Intake and Output 11/21/16 11/21/16 11/22/16 Cumulative From/Thru 15:00 23:00 07:00 11/21/16 15:36 - 11/21/16 20:00 Intake Total 500 ml 500 ml Balance 500 ml 500 ml IV Total 500 ml 500 ml Exam General: Older gentleman lying in bed and in no acute distress, well-developed, well-nourished, sitting up in bed appropriately interactive HEENT: Normocephalic, atraumatic. External ears without defect. Pupils equal, round, and reactive to light and accommodation. Anicteric sclerae, moist conjunctivae, and no lid lag. Oropharynx free of erythema and cobble stoning with moist mucosa. Neck: Supple with full range of motion. No jugular venous distension. No bruits. Cardiovascular: Regular rate and rhythm with soft blowing murmur heard best at systole in left sternal border second intercostal space. Pulmonary: Clear to auscultation upper and lower lobes bilaterally with no crackles, wheezes, or rhonchi. Normal respiratory effort with no use of accessory muscles. Abdomen: Soft, nontender, mildly distended, bowel sounds present. Tympanic. Extremities: No clubbing, cyanosis, or edema. Skin: Normal temperature, turgor, and texture; no rash, ulcers, or subcutaneous nodules appreciated. Neurological: Cranial nerves grossly intact. Normal muscle strength, tone, and bulk. Reflexes, coordination, and sensory function within normal limits. No known gait impairment. Psychiatric: Normal mood and affect. Alert and oriented to person, place, and time. . IVs and Medications Medications Reviewed: Medications were reviewed in detail Lab and Diagnostics Item Value Date Time Calcium Level 8.7 mg/dL 11/22/16 0615 Total Bilirubin 0.5 mg/dL 11/22/16 0615 Aspartate Amino Transf (AST/SGOT) 14 U/L 11/22/16 0615 Alanine Aminotransferase (ALT/SGPT) 9 U/L 11/22/16 0615 Alkaline Phosphatase 72 U/L 11/22/16 0615 Troponin T 0.010 ug/L 11/22/16 0615 Total Protein 6.7 g/dL 11/22/16 0615 Albumin 3.4 g/dL 11/22/16 0615 Triglycerides Level 144 mg/dL 11/22/16 0615 Cholesterol Level 173 mg/dL 11/22/16 0615 LDL Cholesterol, Calculated 119.200 mg/dL H 11/22/16 0615 VLDL Cholesterol 28.800 mg/dL 11/22/16 0615 HDL Cholesterol 25 mg/dL 11/22/16 0615 Cholesterol/HDL Ratio 6.92 H 11/22/16 0615 Procalcitonin 0.13 ng/mL H 11/22/16 0615 Result Diagram: 11/22/16 0615 11/22/16 0615 Microbiology Blood culture 2 pending. . X-Rays, CTs and MRIs CT BRAIN (TPA) IMPRESSION: No acute process. Findings relayed to Dr. Dayron Rosado via ER front end java developer staff [facility] on 11.21.16 at 1534 hrs. This study fulfills neurological imaging criteria for inclusion or exclusion of acute stroke therapies based on available published neurological guidelines. Dictated by: Cody Gauthier M.D. on 11/21/2016 at 15:33 X-RAY CHEST, TWO VIEWS IMPRESSION: No acute process. Dictated by: Cody Gauthier M.D. on 11/21/2016 at 18:31 . 12-lead ECG EKG: AV paced rhythm, heart rate 61, left axis. . Cardiac Echo Impressions Recent echocardiogram Interpretation Summary: 1. Normal left ventricular size, wall thickness and systolic function with an estimated EF of 55% 2. Normal right ventricular size and systolic function 3. The prosthetic valve appears well seated with no evidence for valvular stenosis. No insufficiency is appreciated. Compared to the previous study (images reviewed), no appreciable change Reading Physician:02:46 PM . Assessment & Plan Jair Argueta is an 86-year-old male with CAD s/p 5 vessel CABG, aortic stenosis status post prosthetic valve, hypertension, and atrial fibrillation admitted for a syncopal episode. Hospital day #2. 1. Syncopal episode, present on admission. Resolved. - Likely reflexive and secondary to vasovagal syncope as patient reports he was holding his bladder which would explain the urine incontinence during episode. Other differentials include: Orthostasis versus TIA secondary to septic emboli. Less likely include seizure or CVA (non-focal). - The patient has no history/FH of seizures or seizure-like activity noted during event and patient was not postictal after event. No arrhythmias were noted on EKG, pacemaker interrogation showed no abnormalities. INR is therapeutic, and recent echo from 11/13/2016 made no mention of thrombus or valvular endocarditis. EF was 55% with normal right and left ventricular size and function. The prosthetic valve was seen to be well seated with no stenosis. - Ordered repeat transthoracic echocardiogram as patient was recently treated for bacteremia as an outpatient with amoxicillin and has a porcine valve. Currently shows no sign of infection. 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 - Orthostatic BP's ordered and pending. - Serial troponins negative. - Ordered blood cultures x 2, pending. - Pro calcitonin essentially negative at 0.13. - Continue to monitor closely on telemetry. Chronic problems: 2. Paroxysmal atrial fibrillation, not present on admission. Stable. - Continue with home diltiazem 120mg daily. - Continue home warfarin with dosing per pharmacy. - Continue to monitor closely on telemetry as above. 3. Hypertension, present on admission. Stable. - The patient was borderline hypotensive in ED. - Continue home Losartan 50 mg daily. 4. CAD, status post 5 vessel CABG, present on admission. Stable. - Recommended restarting statin therapy. - Lipid panel shows hyperlipidemia as above. - Continue home ASA 81mg daily. - Recent echocardiogram, as above. Repeat pending. 5. Anxiety, present on admission. Stable. - Continue home citalopram 10mg daily. PRN antiemetics: Zofran and Maalox. PRN bowel regimen: Senna and MiraLAX. PRN analgesics: Tylenol. Patient is admitted under observation status with expected length of stay less than 2 midnights due to severity of presenting symptoms, risk of adverse event, and complexity of treatment plan. . GI Prophylaxis: Proton Pump Inhibitor VTE Prophylaxis: Theraputic Anticoag with Warfarin VTE Mechanical Devices: Venous Foot Pump Resuscitation Status: CPR: Attempt Resuscitation Attending Statement The patient was seen and examined together with Dr. Phipps on 11/22/16 and I agree with the history, exam and plan as outlined in the note above. Rosa M Phipps DO Nov 22, 2016 12:51 Ruby Meyer DO Nov 23, 2016 13:09
[2016-11-22 16:36] LABS: APPEARANCE,URINE HAZY (CLEAR,HAZY); COLOR,URINE YELLOW (YELLOW); OCCULT BLOOD,URINE NEGATIVE (NEGATIVE); UROBILINOGEN,URINE NORMAL (NORMAL)
--- NOTE | 2016-11-22 17:18 | NUR ---
Shift report Pleasant and cooperative pt, able to make needs known. Independent in room. Uses call light appropriately. Oral meds taken without concern. Upright for meals. Upper rails up, bed in low position, call light in reach.
[2016-11-22] MEDS: KETOROLAC 0.5% BOTH_EYES SCH (20:58)
[2016-11-23] VITALS (8 sets, daily range): BP systolic 110–160; BP diastolic 50–80; PULSE 63–79; RESP 18–20; O2SAT 95–98
--- NOTE | 2016-11-23 05:01 | NUR ---
Uneventful Night alert and orientedx3,pleasant, independently in room and ambulated in hallway with family at evening, gait steady, denies dizziness,vertigo. Orthostatic BPs (see vitals records)done (-). No complains,denies any pain/SOB/N/V/Fever/chills, VSS, Tele: AV or A or V-paced 60s.
[2016-11-23] MEDS: PrednisoLONE 1% 1 mL Ophthalmic Suspension BOTH_EYES SCH ×4 (06:21→21:20)
[2016-11-23 07:10] LABS: BASOPHILS % (AUTO) 0.2 % (0-3); EOSINOPHILS % (AUTO) 3.2 % (0-5); INR 1.9 ratio; MONOCYTES % (AUTO) 6.8 % (4-12); Mean Corpuscular Hemoglobin 31.9 pg (27.0-35.0); Mean Corpuscular Volume 96.1 fL (81-100); NEUTROPHILS % (AUTO) 55.9 % (40-74); Platelet Count 229 bil/L (150-400)
[2016-11-23 07:28] LABS: Magnesium 2.3 mg/dL (1.6-2.6)
[2016-11-23] MEDS: Diltiazem CD 120 mg ER24 Capsule PO SCH (08:27)
[2016-11-23] MEDS: KETOROLAC 0.5% BOTH_EYES SCH ×3 (08:28→21:07)
--- NOTE | 2016-11-23 10:34 | PCM.PNMED ---
Subjective Date of Service Nov 23, 2016 Subjective Mr. Adam is doing well this morning. He denies any symptoms and reports he has not had any symptoms since his syncopal episode. Reports normal BMs and urination. Denies any focal weakness. Exam Vital Signs Vital Sign - Last Date Time Temp Pulse Resp B/P Pulse Ox O2 Delivery O2 Flow Rate FiO2 11/23/16 06:40 36.7 65 20 160/80 95 Room Air Intake and Output 11/22/16 11/22/16 11/23/16 Cumulative From/Thru 15:00 23:00 07:00 11/21/16 15:36 - 11/23/16 06:52 Intake Total 318 ml 1236 ml 0 ml 2054 ml Output Total 1225 ml 1225 ml Balance -907 ml 1236 ml 0 ml 829 ml Intake Oral 318 ml 1236 ml 0 ml 1554 ml IV Total 500 ml Output Urine Total 1225 ml 1225 ml # Voids 4 3 7 # Bowel Movements 1 0 0 1 Exam General: Well developed male in NAD, speaks full sentences. HEENT: Normocephalic, atraumatic. External ears without defect. Pupils equal, round, and reactive to light and accommodation. Anicteric sclerae, moist conjunctivae, and no lid lag. Oropharynx non erythematous Neck: Supple with full range of motion. No jugular venous distension. No bruits. Cardiovascular: Regular rate and rhythm with soft blowing murmur systolic murmur Pulmonary: CTAB, normal effort Abdomen: Soft, nontender, nondistended, BS normoactive Extremities: No clubbing, cyanosis, or edema. Skin: Ecchymosis on dorsum of both hands Neurological: Cranial nerves 2-12 grossly intact, no focal weakness, MS grossly intact and equal Psychiatric: Normal mood and affect. Alert and oriented to person, place, and time. . IVs and Medications Medications Reviewed: Medications were reviewed in detail Lab and Diagnostics Result Diagram: 11/23/16 0600 11/23/16 0600 Microbiology Blood culture 2 pending. . X-Rays, CTs and MRIs CT BRAIN (TPA) IMPRESSION: No acute process. Findings relayed to Dr. Dayron Rosado via ER front office specialist staff [facility] on 11.21.16 at 1534 hrs. This study fulfills neurological imaging criteria for inclusion or exclusion of acute stroke therapies based on available published neurological guidelines. Dictated by: Cody Gauthier M.D. on 11/21/2016 at 15:33 X-RAY CHEST, TWO VIEWS IMPRESSION: No acute process. Dictated by: Cody Gauthier M.D. on 11/21/2016 at 18:31 . 12-lead ECG EKG: AV paced rhythm, heart rate 61, left axis. . Cardiac Echo Impressions Recent echocardiogram Interpretation Summary: 1. Normal left ventricular size, wall thickness and systolic function with an estimated EF of 55% 2. Normal right ventricular size and systolic function 3. The prosthetic valve appears well seated with no evidence for valvular stenosis. No insufficiency is appreciated. Compared to the previous study (images reviewed), no appreciable change Reading Physician:02:46 PM . Assessment & Plan Jair Argueta is an 86-year-old male with CAD s/p 5 vessel CABG, aortic stenosis status post prosthetic valve, hypertension, and atrial fibrillation admitted for a syncopal episode. 1. Syncopal episode, present on admission. Resolved. - Likely reflexive and secondary to vasovagal syncope as patient reports he was holding his bladder which would explain the urine incontinence during episode. Other differentials include: Orthostasis versus TIA secondary to septic emboli. Less likely include seizure or CVA (non-focal). - The patient has no history/FH of seizures or seizure-like activity noted during event and patient was not postictal after event. No arrhythmias were noted on EKG, pacemaker interrogation showed no abnormalities. INR is therapeutic, and recent echo from 11/13/2016 made no mention of thrombus or valvular endocarditis. EF was 55% with normal right and left ventricular size and function. The prosthetic valve was seen to be well seated with no stenosis. - Ordered repeat transthoracic echocardiogram as patient was recently treated for bacteremia as an outpatient with amoxicillin and has a porcine valve. Currently shows no sign of infection. 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 - Orthostatic VS - WNL - Serial troponins negative. - Blood cultures - no growth x 24 hours - Pro calcitonin essentially negative at 0.13. - Continue to monitor closely on telemetry - No events noted overnight.Continues to be V-paced in the 60s Chronic problems: 2. Paroxysmal atrial fibrillation, not present on admission. Stable. - Continue with home diltiazem 120mg daily. - Continue home warfarin with dosing per pharmacy. INR therapeutic during hospital stay. - Continue to monitor closely on telemetry as above. 3. Hypertension, present on admission. Stable. - The patient was borderline hypotensive in ED during syncopal episode - Continue home Losartan 50 mg daily. 4. CAD, status post 5 vessel CABG, present on admission. Stable. - Restart Statin therapy on discharge - Lipid panel shows hyperlipidemia as above. - Continue home ASA 81mg daily. - Recent echocardiogram, as above. Repeat Echo pending. 5. Anxiety, present on admission. Stable. - Continue home citalopram 10mg daily. PRN antiemetics: Zofran and Maalox. PRN bowel regimen: Senna and MiraLAX. PRN analgesics: Tylenol. Dispo:Likely discharge later this afternoon pending Echocardiogram results. Pain Evaluation: Adequate Pain Control GI Prophylaxis: Proton Pump Inhibitor VTE Prophylaxis: Theraputic Anticoag with Warfarin VTE Mechanical Devices: Intermittant Pneumatic CD, Venous Foot Pump Resuscitation Status: CPR: Attempt Resuscitation Time spent 35 minutes Attending Statement I have seen and evaluated patient at bedside in addition to directly supervising care provided by resident physician. I agree with above documentation. In regard to Echo mentioned above, results demonstrated hypokinesis in apical portion prompting cardiology consult and further evaluation of stress testing. As such discharge was delayed at least 1 day further Luis Carlos Cam DO Nov 23, 2016 08:05 Julian Rosa DO Nov 24, 2016 07:40
--- NOTE | 2016-11-23 11:50 | DRSVH ---
[facility] [address] [place] [address] Echocardiogram Report Name: ANCA ZUNIGA EStudy Date: 11/23/2016 Height: 71 in Hospital Exam Location: [facility] Weight: 157 lb Gender: Male BSA: 1.9 m2 : 1930 Age: 86 yrs BP: 160/80 mm Hg Reason For Study: Syncope Ordering Physician: HOSPITALIST SVerformed By: Yohana Godinez Referring Physician: Dr. Mita Murillo Interpretation Summary The study quality was technically adequate. The ejection fraction is estimated to be 45-50%. There is mid anteroseptal wall akinesis. There is apical septal wall akinesis. This is new finding compared to the previous study. There is a pacemaker lead in the right ventricle. There is a bioprosthetic aortic valve. The prosthetic aortic valve function is normal. Procedure: A two-dimensional transthoracic echocardiogram with color flow and Doppler was performed in limited views only. The study quality was technically adequate. Comparison is made with the echocardiogram of 11-13-16. The patient has a paced rhythm. Left Ventricle: The left ventricle is normal in size. There is normal left ventricular wall thickness. The ejection fraction is estimated to be 45-50%. There is mid anteroseptal wall akinesis. There is apical septal wall akinesis. This is new finding compared to the previous study. Right Ventricle: The right ventricle is normal in size and function. There is a pacemaker lead in the right ventricle. Atria: There is a catheter/pacemaker lead seen in the right atrium. The interatrial septum is intact with no evidence for an atrial septal defect. Mitral Valve: The mitral valve leaflets appear mildly thickened, but open well. The mitral valve leaflets are mildly calcified. There is moderate mitral annular calcification. There is trace mitral regurgitation. Aortic Valve: There is a bioprosthetic aortic valve. The prosthetic aortic valve appears to open well. The prosthetic aortic valve is well-seated. The prosthetic aortic valve function is normal. There is trace aortic regurgitation. Tricuspid Valve: The tricuspid valve is normal in structure and function. Great Vessels: The aortic root is normal size. MMode/2D Measurements & Calculations LVIDd: 5.1 cm AoV Opening EDV(MOD-sp2) LV jiménez. diameter/BSA LVIDs: 2.9 cm : 109.1 ml (cm/m^2): 2.7 FS: 41.8 % Ao root diam IVSd: 0.95 cm LVPWd: 0.81 cm Aortic Jxn : 2.6 cm LV sys. diameter/BSA (cm/m^2): 1.5 Doppler Measurements & Calculations Ao V2 max MV E max bladimir MV E/A: 0.55 TR max bladimir : 255.8 cm/sec : 79.8 cm/sec MV A dur : 271.3 cm/sec Ao max P.2 mmHgMV A max bladmiir : 0.14 sec TR max PG Ao mean PG : 146.0 cm/sec : 29.5 mmHg : 14.3 mmHg LVOT Max Bladimir : 86.8 cm/sec sev ratio: 0.35 MV dec time Ao V2 mean LV V1 max PG : 0.31 sec : 175.8 cm/sec Ao V2 VTI: 56.6 cm LV V1 VTI : 20.1 cm Electronically signed by: Leobardo hWite on Reading Physician:11/23/2016 11:50 AM
--- NOTE | 2016-11-23 12:41 | PCM.PHAPRO ---
Progress Date of Service: Nov 23, 2016 INR = 1.90, hgb/hct = 11.5/34.7. Pt continues on warfarin therapy for a fib. Goal INR = 2-3. INR subtherapeutic today, likely from missed dose on day of admission on 11/21. Will continue home dose of warfarin 5mg PO tonight. INR ordered. Pharmacy will continue to follow this patient's warfarin therapy. Roberta Garg PharmD Nov 23, 2016 12:41
--- NOTE | 2016-11-23 15:06 | NUR ---
Social Work-readiness for discharge: Data:EMR Reviewed. Pt is on day 2 of hospitalization for syncope per H&P. Pt is not medically stable anticipate tomorrow. Pt has been up independent in his room. SW confirmed plan with pt and , home no needs. Pt's daughter to provide transport home. No anticipated discharge needs. SW will continue to follow if needs arise. Assessment:Pt who is independent at baseline. Plan:Pt to discharge home when medically stable via POV. No anticipated discharge needs. SW will continue to follow if needs arise. Roberta Mendez,RN INTAKE
--- NOTE | 2016-11-23 18:15 | NUR ---
Daily update Patient alert and oriented X3. Patient denied any chest pain, discomfort, or dizziness. No syncope was noted today. Patient ambulating independently with steady gait observed. Patient will be NPO at midnight for NM stress test in the AM. Patient has been informed and sign placed on door.
--- NOTE | 2016-11-23 21:09 | CONS ---
[address] [address] CARDIOLOGY CONSULTATION NOTE PATIENT: ANCA ZUNIGA : 1930 MR#: [id number] ADMIT: 11/21/2016 JOB ID: [id number] DATE OF SERVICE:11/23/2016 HISTORY OF PRESENT ILLNESS: This is a very pleasant 86-year-old gentleman with medical history of coronary artery disease status post CABG x5 which was done in 2009, history of bioprosthetic aortic valve replacement (2009), history of Mobitz type IIAV block with syncopal episode and because of this dual-chamber pacemaker placement in 2013, history of hypertension, hyperlipidemia, paroxysmal atrial fibrillation chronically anticoagulated on warfarin, who was admitted to [facility] on November 21, 2016 after a syncopal episode. The patient actually was here at [facility] ER with his who had health problems and he was sitting next to his when at some point he passed out. The patient tells me that before passing out he wanted to urinate a lot but he was holding on it. He remembers that it became whitish in vision and he passed out. His tells me that the patient was seated in the chair when he passed out. He suddenly put his head back with open eyes and then he dropped his head forward. He was not responding to his name. Reportedly the patient was passed out for four minutes or so. While syncopal the patient was incontinent and he urinated. He did not have any clonic or shaking movements. He does not have history of seizures and he never had another syncopal episode except the one mentioned above when he had a 2nd degree Mobitz type II AV block and subsequently had a pacemaker placement. Before and after syncopal episode that happened on November 21 2016, the patient denies having any chest pain or chest pressure or chest discomfort, any dizziness or lightheadedness, any palpitations. Denies feeling nauseated or clammy. His pacemaker was interrogated yesterday and it showed the device functioned properly and there were no alerts or mode swtches. All this time he has been hemodynamically stable, His labs showed chronic stable anemia and normal kidney function and electrolytes and normal troponins. His INR on admission was therapeutic at 2.67 and today it is 1.9. He had an echo done today on November 23, 2016 which showed that his ejection fraction was 45% to 50%, he had mid anteroseptal wall akinesis. Also apical septal wall akinesis and all of these were new findings comparing to the echo which he had actually recently on November 13, 2016 when he had an LVEF of 55%. Per today's echo, his prosthetic valve functions normally. There is moderate mitral annular calcification, and there is trace mitral regurgitation. HOME CARDIAC MEDICATIONS: 1. Aspirin 81 mg daily. 2. Losartan 50 mg daily. 3. Warfarin. 4. Cartia XT 120 mg capsule daily. PAST MEDICAL HISTORY: CAD Hypertension Paroxysmal atrial fibrillation Mobitz 2 AV block PAST SURGERY HISTORY: 1. CABG x5 - 2009 2. Bioprosthetic aortic valve replacement - 2009 3. Dual-chamber pacemaker replacement in 2013. 4. shoulder surgery. 5. Left cataract surgery. FAMILY HISTORY: Father at age 80s from cardiac cause. SOCIAL HISTORY: He does not smoke. He used to smoke many years ago a tobacco pipe which he quit. He periodically drinks a small glass of wine with dinner. Denies recreational drug use. PHYSICAL EXAMINATION: Temperature 36.5, pulse 66, respiratory rate 18, blood pressure 110/50. General: No acute distress. HEENT: Sclerae anicteric, mucous membranes are moist, tongue is midline. Neck: Supple, no carotid bruits. Normal breathing sounds bilaterally, no crackles, no wheezing. Cardiac: Regular rate and rhythm. No murmur appreciated. Abdomen: Nontender with palpation. Extremities: No lower extremity edema. Musculoskeletal: Gait is normal. Neuro: Alert and oriented x3, no gross abnormalities. DIAGNOSTIC STUDIES: On telemetry, atrial and ventricular paced rate at 60s. Chest x-ray from November 21, 2016 showed no active process. Brain CT from November 21, 2016 showed no acute process. ASSESSMENT AND PLAN: The patient is an 86-year-old gentleman with history of coronary artery disease status post coronary artery bypass graft x5 and bioprosthetic aortic valve replacement (done in 2009), history of second-degree Mobitz type II AV block with syncopal episode and subsequently with dual-chamber pacemaker placement in 2013, hypertension, hyperlipidemia, paroxysmal atrial fibrillation anticoagulated on warfarin who was admitted at [facility] on November 21, 2016 with a syncopal episode; had stable labs and normal troponin; had newly identified cardiomyopathy with ejection fraction 45% to 50% and with mid anteroseptal and apical septal wall akinesis. Syncopal episode - His device check on this admission showed that the device functions properly and did not show any alerts. Keeping in mind that he has the newly diagnosed cardiomyopathy with mid anteroseptal and apical septal wall akinesis which was reported new, I will order Lexiscan stress test to make sure that these changes are not ischemic in origin. His troponins were negative. His blood pressure is well controlled at this point. On telemetry, he has atrial and ventricular paced rhythm with underlying sinus rhythm. He is anticoagulated on warfarin. His INR today is 1.9. Continue other medications without change at this point. The case was discussed with crayon grader Dr. Carpio agreed with assessment and plan. CORTES
[2016-11-24 00:10] VITALS: BP 125/61; PULSE 60; RESP 18; O2SAT 98
[2016-11-24 05:50] VITALS: BP 114/61; PULSE 63; RESP 18; O2SAT 93
[2016-11-24] MEDS: PrednisoLONE 1% 1 mL Ophthalmic Suspension BOTH_EYES SCH ×2 (06:30→11:30)
[2016-11-24 06:59] LABS: BASOPHILS % (AUTO) 0.3 % (0-3); MONOCYTES % (AUTO) 7.9 % (4-12); Mean Corpuscular Hemoglobin 31.8 pg (27.0-35.0); Mean Corpuscular Volume 96.9 fL (81-100); NEUTROPHILS % (AUTO) 57.1 % (40-74); Platelet Count 218 bil/L (150-400)
[2016-11-24 07:15] LABS: INR 1.62 ratio
[2016-11-24] MEDS: KETOROLAC 0.5% BOTH_EYES SCH ×2 (08:18→15:07)
[2016-11-24] MEDS: Diltiazem CD 120 mg ER24 Capsule PO SCH (08:19)
[2016-11-24 09:58] VITALS: BP 119/72; PULSE 70; RESP 18; O2SAT 98
[2016-11-24 10:48] VITALS: PULSE 72
--- NOTE | 2016-11-24 11:33 | NUR ---
Off unit to stress test Pt off unit to stress test, [employer] notified. Addendum: 11/24/16 at 1403 by ALINA BLOOD RN Pt back on unit at 1350, [employer] notified.
--- NOTE | 2016-11-24 14:20 | PCM.PHAPRO ---
Progress Date of Service: Nov 24, 2016 INR = 1.62 Hgb/hct = 11.3/34.4. Pt continues on warfarin for afib. Goal INR = 2-3. Today INR is subtherapeutic. Will give higher dose of warfarin 7.5mg PO tonight. INRs ordered. Pharmacy will follow this patient's warfarin therapy. Date -Nov 22-Nov 23-Nov 24-Nov INR 2.67 2.55 1.90 1.62 INR change -0.12 -0.65 -0.28 Warf Dose 5mg 5mg 7.5 mg Roberta Garg S PharmD Nov 24, 2016 14:20
[2016-11-24 14:37] VITALS: BP 95/59; PULSE 71; RESP 20; O2SAT 96
--- NOTE | 2016-11-24 16:16 | NUR ---
Case Management: COS to IP. IMM explained to patient and his at 1520, all questions answered. Signed original placed in chart, copy given to patient. Uyen Moreland RN
--- NOTE | 2016-11-24 16:41 | PCM.DIMED ---
Luis Carlos Cam DO 11/24/16 1641: Discharge Instructions Date of Service Nov 24, 2016 Dates of Hospitalization Nov 21, 2016 at 18:39 Discharge Diagnosis Discharge Diagnosis Syncopal episode, present on admission. Resolved. Paroxysmal atrial fibrillation, present on admission. Stable. Chronic Hypertension, present on admission. Stable. - The patient was borderline hypotensive in ED during syncopal episode - Continue home Losartan 50 mg daily. CAD, status post 5 vessel CABG and dual lead pacemaker, present on admission. Stable. Aortic Stenosis s/p bioprosthetic valve on chronic anticoagulation, therapeutic , stable. Anxiety, present on admission. Stable. Medication Instructions Continue your home medications as prescribed. Diet Heart Healthy Activity No restrictions Call your provider Fever or Chills, Shortness of breath, Chest pain, Weakness (unilateral) Patient Instructions You are being discharged home today. Please follow up with your PCP within 1 week. Please continue taking your medications as prescribed. Follow-up Provider: Gonzalez Murillo DO Follow-up with PCP in: 1 week Julian Rosa DO 11/25/16 0805: Discharge Instructions Attending's Statement Read and agree Luis Carlos Cam DO Nov 24, 2016 16:41 Julian Rosa DO Nov 25, 2016 08:05
--- NOTE | 2016-11-24 16:47 | DRSVH ---
PROCEDURE: ONE DAY PHARMACOLOGICAL STRESS TEST REFERRING PHYSICIAN: Joni Polo PRIMARY CARE PROVIDER: Dr. Murillo INDICATIONS: Mr. Argueta is an 86-year-old male, admitted to [facility] with syncope. Chela cyr has a history of prosthetic valve replacement, pacemaker placement and previous coronary bypass gra ft surgery. Nuclear cardiac stress study is performed to evaluate for the presence of significant re current ischemia. STRESS TEST: This patient received a standard pharmacologic Lexiscan injection. He had a normal pha rmacologic response to the Lexiscan injection. Baseline 12-lead EKG shows normal sinus rhythm with a ventricular paced rhythm. PROCEDURE: This patient received 8.3 mCi of technetium-99 tetrofosmin for the rest portion of the ex amination. For the stress portion of the examination, he received an additional 26.0 mCi. FINDINGS: Raw Data: Raw data imaging demonstrates overall good image quality. No significant source of artifa ct or interference is identified. Quantitative Gated SPECT Imaging: Gated images demonstrate a septal wall motion abnormality, consist ent with the patient's underlying left bundle branch block. Left ventricular end diastolic volume is estimated at 85 cc with an ejection fraction estimated at 66%. Quantitative Perfusion SPECT Imaging: Myocardial perfusion imaging shows a moderate perfusion abnorm ality involving the interventricular septum, consistent with the patient's left bundle branch block. No other perfusion abnormality is identified. IMPRESSION: Abnormal nuclear cardiac stress study: A. Normal pharmacologic response to Lexiscan injection without symptoms of angina. B. Normal-size left ventricle with septal wall motion abnormality, consistent with the patient's lef t bundle branch block. C. Moderate fixed septal perfusion abnormality, consistent with the patient's left bundle branch blo ck, with no evidence of that would suggest ischemia. Dictated by: Kimo Nobles M.D. on 11/24/2016 at 16:24 Transcribed by: MELISSA on 11/24/2016 at 19:47 The heading Quantitative Gated SPECT Imaging was given twice, I changed the second one to Quantitativ e Perfusion SPECT Imaging, please confirm this is correct, thanks! Approved by: Kimo Nobles M.D. on 11/29/2016 at 12:43
--- NOTE | 2016-11-24 17:30 | NUR ---
DISCHARGE Pt discharged home this afternoon at 1700, accompanied off unit in w/c by DIETARY DIRECTOR and . Vitals stable, A&O, denies any pain/discomfort and in no apparent distress. All instructions for diet, activity, medications, and follow up reviewed with patient who reports understanding. No new prescriptions written.
--- NOTE | 2016-11-24 18:23 | PCM.DC.MED ---
Discharge Summary Date of Service Nov 24, 2016 Dates of Hospitalization Date of Hospital Admission Nov 21, 2016 at 18:39 Date of Discharge: Nov 24, 2016 Providers: Admitting Physician: Ruby Meyer DO Primary Care Physician: Gonzalez Murlilo DO Attending Physician: Ruby Meyer DO Diagnosis at Time of Discharge Diagnosis at Time of Discharge Syncopal episode, present on admission. Resolved. Paroxysmal atrial fibrillation, present on admission. Stable. Chronic Hypertension, present on admission. Stable. CAD, status post 5 vessel CABG and dual lead pacemaker, present on admission. Stable. Aortic Stenosis s/p bioprosthetic valve on chronic anticoagulation, therapeutic , stable. Anxiety, present on admission. Stable. Procedures XRay, CTs & MRIs CT BRAIN (TPA) IMPRESSION: No acute process. Findings relayed to Dr. Dayron Rosado via ER front desk administrator staff Concepcion on 11.21.16 at 1534 hrs. This study fulfills neurological imaging criteria for inclusion or exclusion of acute stroke therapies based on available published neurological guidelines. Dictated by: Cody Gauthier M.D. on 11/21/2016 at 15:33 X-RAY CHEST, TWO VIEWS IMPRESSION: No acute process. Dictated by: Cody Gauthier M.D. on 11/21/2016 at 18:31 . ECG 12 Lead EKG: AV paced rhythm, heart rate 61, left axis. . Cardiac Echo Impression Recent echocardiogram Interpretation Summary: 1. Normal left ventricular size, wall thickness and systolic function with an estimated EF of 55% 2. Normal right ventricular size and systolic function 3. The prosthetic valve appears well seated with no evidence for valvular stenosis. No insufficiency is appreciated. Compared to the previous study (images reviewed), no appreciable change Reading Physician:02:46 PM . Other Diagnostics IMPRESSION: Abnormal nuclear cardiac stress study: A. Normal pharmacologic response to Lexiscan injection without symptoms of angina. B. Normal-size left ventricle with septal wall motion abnormality, consistent with the patient's left bundle branch block. C. Moderate fixed septal perfusion abnormality, consistent with the patient's left bundle branch block, with no evidence of that would suggest ischemia. Brief History Mr. Adam is a 86-year-old male with past medical history of CAD s/p CABG 5 with dual-chamber pacemaker, prosthetic heart valve 2013, HTN, HLD, A-fib on warfarin, prostate CA in remission and anxiety was in the [facility] ED today with his who was being seen for hypertension (not admitted). He was in the room with his and daughter when he states his vision became white and blurry and "passed out". Patient's daughter Parul also present in the room at time of interview states patient suddenly rolled his head backward and began to snore. She reports that she could not wake him up called for help code stroke was activated. This time patient became incontinent of urine. There is no reported shaking or tremors from the patient. Total episode lasted approximately 4 minutes, code stroke called the patient reports that he woke up in a hospital gurney as he was being wheeled into the CT scan room, upon regaining consciousness he did not feel abnormal in any way. Denies any headaches, visual disturbances, neurologic deficits or any weakness or numbness in any of his extremities. He did state before this episode he did have a full bladder and was just about to go to the bathroom. He reports that this has never happened to him before though does endorse an episode of "white out" in his vision approximately 1 month prior which immediately resolved with no further symptoms. He denies any history of seizures. Patient denies currently having or experiencing any symptoms leading up to this event of any chest pain, shortness of breath, headache, visual disturbances, abdominal pain, nausea or vomiting, fever, chills, cough, focal numbness or weaknesses, speech changes. Of note patient was hospitalized in October 2016 for acute encephalopathy and found to have Streptococcus mitis bacteremia. Patient's discharge summary from 10/30/2016 does not mention Streptococcus mitis bacteremia however follow-up oncology note does mention it. Her outpatient records patient looks to be started on Levaquin 500 mg daily starting on 11/04/2016. Patient does endorse taking 12 days of antibiotic and has not reported any fevers at home though does endorse a consistent lethargy over the last 2 weeks. Often taking naps during the day which is abnormal for him. He was also taken off his citalopram during this antibiotic course which she been taking consistently for 2 years prior to this event. He recently restarted this medicine yesterday. Echo report from 11/13/2016 showed normal left ventricular size wall thickness with EF of 55% the prosthetic valve tears to be well seated with no evidence of valvular stenosis. No insufficiency was appreciated. No appreciable change from previous studies. Hospital Course Jair Argueta is an 86-year-old male with CAD s/p 5 vessel CABG, aortic stenosis status post prosthetic valve, hypertension, and atrial fibrillation admitted for a syncopal episode. Patient never had any other symptoms after this episode and did not have any post-ictal symptoms either. He continued to be stable throughout admission, but did have to undergo a MIBI stress test due to new apical akinesis found on repeat TTE. Stress test results were benign and patient was discharged home with continued medical therapy. 1. Syncopal episode, present on admission. Resolved. - Likely reflexive and secondary to vasovagal syncope as patient reports he was holding his bladder which would explain the urine incontinence during episode. Other differentials include: Orthostasis versus TIA secondary to septic emboli. Less likely include seizure or CVA (non-focal). - The patient has no history/FH of seizures or seizure-like activity noted during event and patient was not postictal after event. No arrhythmias were noted on EKG, pacemaker interrogation showed no abnormalities. INR is therapeutic, and recent echo from 11/13/2016 made no mention of thrombus or valvular endocarditis. EF was 55% with normal right and left ventricular size and function. The prosthetic valve was seen to be well seated with no stenosis. 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 - Orthostatic VS were WNL and stable - Serial troponins negative. - Blood cultures - no growth x 48 hours - Pro calcitonin essentially negative at 0.13. - No events noted on telemetry. Continues to be V-paced in the 60s 2. Paroxysmal atrial fibrillation, not present on admission. Stable. - Continue with home diltiazem 120mg daily. No episodes during admission - INR therapeutic during hospital stay. 3. Hypertension, present on admission. Stable. - The patient was borderline hypotensive in ED during syncopal episode - Continue home Losartan 50 mg daily. 4. CAD, status post 5 vessel CABG, dual lead pacemaker, and bioprosthetic valve. present on admission. Stable. - Restarted Statin therapy on discharge - Home ASA 81mg daily continued - Repeat Echo pending revealed new apical akinesis, so patient had a MIBI stress test the following day that did not show any new ischemia. 5. Anxiety, present on admission. Stable. - Continued home citalopram 10mg daily. Exam Vital Signs (Last) Date Time Temp Pulse Resp B/P Pulse Ox O2 Delivery O2 Flow Rate FiO2 11/24/16 14:37 36.7 71 20 95/59 96 Room Air Exam General: Well developed male in NAD, speaks full sentences. HEENT: Normocephalic, atraumatic. Pupils equal, round, and reactive to light and accommodation. Anicteric sclerae, moist conjunctivae, and no lid lag. Oropharynx non erythematous Neck: Supple with full range of motion. No jugular venous distension. No bruits. Cardiovascular: Regular rate and rhythm with soft blowing systolic murmur Pulmonary: CTAB, normal effort Abdomen: Soft, nontender, nondistended, BS normoactive Extremities: No clubbing, cyanosis, or edema. Skin: Ecchymosis on dorsum of both hands Neurological: grossly intact, no focal weakness, MS grossly intact and equal Psychiatric: Normal mood and affect. Alert and oriented to person, place, and time. . Test 11/21/16 15:45 11/22/16 06:15 11/22/16 15:40 11/23/16 06:00 Activated Partial Thromboplast Time 32.4sec (22.8-33.0) Hold Olguin Top Tube Received (Received) Total Bilirubin 0.5mg/dL (0.0-1.2) Aspartate Amino Transf (AST/SGOT) 14U/L (0-50) Alanine Aminotransferase (ALT/SGPT) 9U/L (0-44) Alkaline Phosphatase 72U/L (25-160) Troponin T 0.010ug/L (0.0-0.011) Total Protein 6.7g/dL (6.4-8.4) Albumin 3.4g/dL (3.4-5.0) Triglycerides Level 144mg/dL (0-149) Cholesterol Level 173mg/dL (100-199) LDL Cholesterol, Calculated 119.200mg/dL (0-99) VLDL Cholesterol 28.800mg/dL HDL Cholesterol 25mg/dL (>39) Cholesterol/HDL Ratio 6.92 (0.0-4.4) Procalcitonin 0.13ng/mL (0.00-0.08) Urine Color Yellow (YELLOW) Urine Appearance Hazy (CLEAR,HAZY) Urine pH 6.0 (5.0-8.0) Urine Specific [place] 1.010 (1.003-1.035) Urine Protein Negativemg/dL (NEG,TRACE) Urine Glucose (UA) Negativemg/dL (NEGATIVE) Urine Ketones Negativemg/dL (NEGATIVE) Urine Occult Blood Negative (NEGATIVE) Urine Nitrite Negative (NEGATIVE) Urine Bilirubin Negative (NEGATIVE) Urine Urobilinogen Normalmg/dL (NORMAL) Urine Leukocyte Esterase Negative (NEGATIVE) Urine RBC 0-2/hpf (0-2) Urine WBC 0-5/hpf (0-5) Urine Epithelial Cells Occasional/hpf (NONE-MOD) Urine Crystals None seen (NONE SEEN) Urine Bacteria Few/hpf (NONE-FEW) Urine Hyaline Casts None/lpf (NONE) Urine Granular Casts None seen (NONE SEEN) Urine Waxy Casts None seen (NONE SEEN) Urine Red Blood Cell Casts None seen (NONE SEEN) Urine White Blood Cell Casts None seen (NONE SEEN) Urine Mucus Present (None Seen) Urine Trichomonas None seen (NONE SEEN) Urine Yeast None (NONE SEEN) Urinalysis Comment None Urine Culture Reflexed Not indicated Magnesium Level 2.3mg/dL (1.6-2.6) Test 11/24/16 06:12 White Blood Count 7.6th/mm3 (3.8-10.1) Red Blood Count 3.55mil/mm3 (4.40-5.80) Hemoglobin 11.3g/dL (13.8-17.2) Hematocrit 34.4% (41.0-50.0) Mean Corpuscular Volume 96.9fL (81-100) Mean Corpuscular Hemoglobin 31.8pg (27.0-35.0) Mean Corpuscular Hemoglobin Concent 32.8% (32.0-37.0) Red Cell Distribution Width 15.5% (12.3-15.4) Platelet Count 218bil/L (150-400) Neutrophils (%) (Auto) 57.1% (40-74) Lymphocytes (%) (Auto) 31.7% (14-46) Monocytes (%) (Auto) 7.9% (4-12) Eosinophils (%) (Auto) 3.0% (0-5) Basophils (%) (Auto) 0.3% (0-3) Prothrombin Time 17.5sec (8.1-12.5) Prothromb Time International Ratio 1.62ratio Sodium Level 141mEq/L (134-144) Potassium Level 4.2mEq/L (3.5-5.2) Chloride Level 103mEq/L (97-108) Carbon Dioxide Level 24mmol/L (18-29) Blood Urea Nitrogen 19mg/dL (8-27) Creatinine 0.93mg/dL (0.76-1.27) Estimat Glomerular Filtration Rate 82mL/min (>59) Glucose Level 96mg/dL (60-99) Calcium Level 8.9mg/dL (8.5-10.1) Microbiology Results Blood culture 2 pending. . Discharge Medications Discharge Medications ([DoTerra supplements]) 3 CAPSULE PO DAILY (Reported) Aspirin (Aspirin) 81 Mg Tablet 81 MG PO DAILY (Reported) Citalopram Hydrobromide (Celexa) 10 Mg Tablet 10 MG PO DAILY (Reported) Diltiazem ER (Cartia XT) 120 Mg Cap.er.24h 120 MG PO DAILY (Reported) Ketorolac Tromethamine (Ketorolac Tromethamine) 5 Ml Drops 1 GTTS RIGHT_EYE QID (Reported) Ketorolac Tromethamine (Ketorolac Tromethamine) 5 Ml Drops 1 GTT LEFT_EYE TID ( Reported) Losartan Potassium (Losartan Potassium) 50 Mg Tablet 50 MG PO DAILY (Reported) Moxifloxacin Ophth Soln (Vigamox Ophth Soln) 3 Ml Soln 1 DROP RIGHT_EYE QID ( Reported) Multivitamin (Multi Vitamin Daily) 1 Each Tablet 1 EACH PO DAILY (Reported) Prednisolone Acetate (Prednisolone Acetate) 5 Ml Drops.susp 1 DROP AFFECT_EYE QID (Reported) Warfarin Sodium (Warfarin Sodium) 5 Mg Tablet 5 MG PO DAILY (Reported) Additional med instructions Continue your home medications as prescribed. Followup Plan Disposition: Home Discharge Diet: Heart Healthy Discharge Activity: No restrictions Patient Instructions You are being discharged home today. Please follow up with your PCP within 1 week. Please continue taking your medications as prescribed. Follow-up Provider: Gonzalez Murillo DO Follow-up with PCP in: 1 week Time spent 40 minutes Attending Statement I have seen and evaluated patient at bedside in addition to directly supervising care provided by resident physician. I agree with above documentation. copies to: Gonzalez Murillo DO Luis Carlos Cam DO Nov 24, 2016 18:23 Julian Rosa DO Nov 25, 2016 08:12
[2016-12-09] MEDS ORDERED: ROSU5TAB PO (11:05)
[2016-12-09] MEDS ORDERED: UBID1CAP52 PO (11:05)
== END 2016-11-24 17:17 | disposition home or self-care (01) | DRG 312 ==
LOC: SED 15:26 → OBSVTOIN 18:39 → MPC 18:39
PROVIDERS: ADMIT Neuromusculoskeletal Medicine & OMM; ATTEND Neuromusculoskeletal Medicine & OMM
PROC: 4B02XSZ Measurement of Cardiac Pacemaker, External Approach (ICD-10-PCS; principal; 2016-11-21)
DX: R55 Syncope and collapse (principal); Z79.82 Long term (current) use of aspirin; Z79.01 Long term (current) use of anticoagulants; Z95.0 Presence of cardiac pacemaker; Z95.1 Presence of aortocoronary bypass graft; Z85.46 Personal history of malignant neoplasm of prostate; Z79.52 Long term (current) use of systemic steroids; Z87.891 Personal history of nicotine dependence; I48.0 Paroxysmal atrial fibrillation; I10 Essential (primary) hypertension; I25.10 Atherosclerotic heart disease of native coronary artery without angina pectoris; F41.9 Anxiety disorder, unspecified

== ENCOUNTER 2017-01-09 22:12 | Inpatient (IN) | payer MEDICARE, OTHER ==
[~2017-01-09] VITALS: Ht 177.8 cm; Wt 66.1 kg
[~2017-01-09 22:12] MED LIST changes: +ROSU5TAB PO; +UBID1CAP52 PO; +VIGAMOX RIGHT_EYE
--- NOTE | 2017-01-09 22:14 | ED.REPORT ---
HPI-General Illness Date of Service Jan 09, 2017 ED Provider: Juan Alberto Rosado MD Pt is an 86 y/o male anticoagulated on Warfarin w/ a hx of CAD s/p CABG x5 and pacemaker, prostate CA in remission, HTN, A-fib, presenting to the ED via EMS accompanied by his and daughter due to altered mental status onset yesterday. He is usually very talkative and articulate. He now presents confused, unfocused, unable to provide PMHx and is "distinctly different from his usual self." Per patient's daughter, he has been in extreme back pain for several days. In the room, he states that he needs to urinate. He denies vomiting, nausea, and cough. Associated symptoms include fever and urinary incontinence earlier today. Just started taking hydrocodone yesterday and has not been telling his PCP how much pain he has been in. He had dental work done yesterday. His mental status was normal yesterday. Nursing Notes Stated Complaint: GENERALIZED WEAKNESS Nursing Notes Reviewed: Yes Allergies: Coded Allergies: lisinopril (Verified Allergy, Mild, cough, 11/21/16) hydromorphone (Verified Adverse Reaction, Severe, hallucinations, 11/21/16) Scheduled ([DoTerra supplements]) 3 CAPSULE PO BID Aspirin (Aspirin) 81 Mg Tablet 81 MG PO DAILY Citalopram Hydrobromide (Celexa) 10 Mg Tablet 10 MG PO DAILY Diltiazem ER (Cartia XT) 120 Mg Cap.er.24h 120 MG PO DAILY Ketorolac Tromethamine (Ketorolac Tromethamine) 5 Ml Drops 1 GTTS RIGHT_EYE QID Losartan Potassium (Losartan Potassium) 50 Mg Tablet 50 MG PO DAILY Moxifloxacin Ophth Soln (Vigamox Ophth Soln) 3 Ml Soln 1 DROP RIGHT_EYE QID Multivitamin (Multi Vitamin Daily) 1 Each Tablet 1 EACH PO DAILY Prednisolone Acetate (Prednisolone Acetate) 5 Ml Drops.susp 1 DROP AFFECT_EYE QID Rosuvastatin Calcium (Crestor) 5 Mg Tablet 2.5 MG PO every other day Ubidecarenone/Vit E Acetate (Co Q-10 100 mg Softgel) 1 Each Capsule 1 EACH PO DAILY Warfarin Sodium (Warfarin Sodium) 5 Mg Tablet 5 MG PO DAILY General Time Seen by MD: 22:09 Chief Complaint Altered mental status Hx Obtained From: Patient, Spouse, Daughter Arrived By: Ambulance Sudden in Onset?: Yes Onset Occurred: Yesterday Symptom Duration: Since onset Location: : Back Quality: Painful Severity: Current: Mild Recent Healthcare: Recent doctor visit Similar Sx Previous: No Past Medical History Past Medical History Notes: PCP: Dr. Murillo Past Medical History Heart murmur Bony lesions Sclerotic pelvic lesions Prostate cancer reportedly in remission CAD s/p CABG x5 Hypertension Atrial fibrillation Depression Past Surgical History CABG x5 Shoulder surgery [employer] Pacemaker insertion Reports: Pacemaker insertion Smoking History Former Smoker Social History Alcohol Use: Denies alcohol use Drug Use: Denies drug use Other Social History: Good social support, Ambulatory Status Independent Review of Systems Full Review of Systems Constitutional: Reports: Fever Respiratory: Denies: Non-productive cough GI: Denies: Nausea, Vomiting Male: Reports Incontinence Musculoskeletal: Reports: Back pain Psychiatric: Reports: Change mental status, Confusion Complete sys rev & neg: except as marked. Physical Exam Vital Signs Vital Signs Date Time Temp Pulse Resp B/P Pulse Ox O2 Delivery O2 Flow Rate FiO2 01/09/17 22:24 38.2 70 20 141/72 98 Room Air Initial VS: Reviewed Head / Eyes: Atraumatic, Normocephalic, PERRL Respiratory: Breath sounds normal, Clear to auscultation, No respiratory distress Extremities: Vascular intact, Neuro intact, No swelling, No tenderness Skin: Warm, Dry General/Constitutional: Awake, Cooperative Alertness: Positive: Confused Heart Rate / Rhythm: Positive: Tachycardia Abdomen: Atraumatic, No palpable mass, No pulsatile mass no organomegaly Mental Status: Positive: Confused knows location talking nonsensically inbetween answering questions correctly Interpretation & Diagnostics Lab Results Interpretation Result Diagram: 01/10/17 0330 01/10/17 0330 Test 01/09/17 22:15 01/09/17 22:20 01/09/17 22:45 01/09/17 22:55 Erythrocyte Sedimentation Rate 77mm/hr (0-30) Hold Purple Top Tube Received (Received) Hold Blue Top Tube Received (Received) Phosphorus Level 2.5mg/dL (2.5-4.9) Magnesium Level 2.2mg/dL (1.6-2.6) Total Bilirubin 0.6mg/dL (0.0-1.2) Aspartate Amino Transf (AST/SGOT) 21U/L (0-50) Alanine Aminotransferase (ALT/SGPT) 12U/L (0-44) Alkaline Phosphatase 75U/L (25-160) Troponin T 0.010ug/L (0.0-0.011) Pro-B-Type Natriuretic Peptide 2836pg/mL (0-486) Total Protein 7.6g/dL (6.4-8.4) Albumin 3.3g/dL (3.4-5.0) Procalcitonin 0.18ng/mL (0.00-0.08) Hold Red Top Tube Received (Received) Hold [place] Top Tube Received (Received) Urine Color Yellow (YELLOW) Urine Appearance Clear (CLEAR,HAZY) Urine pH 6.0 (5.0-8.0) Urine Specific [place] 1.015 (1.003-1.035) Urine Protein Negativemg/dL (NEG,TRACE) Urine Glucose (UA) Negativemg/dL (NEGATIVE) Urine Ketones Negativemg/dL (NEGATIVE) Urine Occult Blood Small (NEGATIVE) Urine Nitrite Negative (NEGATIVE) Urine Bilirubin Negative (NEGATIVE) Urine Urobilinogen Normalmg/dL (NORMAL) Urine Leukocyte Esterase Negative (NEGATIVE) Urine RBC 3-10/hpf (0-2) Urine WBC 0-5/hpf (0-5) Urine Epithelial Cells Occasional/hpf (NONE-MOD) Urine Crystals None seen (NONE SEEN) Urine Bacteria None/hpf (NONE-FEW) Urine Hyaline Casts None/lpf (NONE) Urine Granular Casts None seen (NONE SEEN) Urine Waxy Casts None seen (NONE SEEN) Urine Red Blood Cell Casts None seen (NONE SEEN) Urine White Blood Cell Casts None seen (NONE SEEN) Urine Mucus None seen (None Seen) Urine Trichomonas None seen (NONE SEEN) Urine Yeast None (NONE SEEN) Urine Culture Reflexed Not indicated Acetaminophen Level 15.0ug/mL Rx (10-25) Lactic Acid Level 0.7mmol/L (0.4-2.0) ECG Interpretation ECG Interpretation: atrial-sensed ventricular-paced complexes (rate 84) pacemaker Time: 11:03 Interpreted by: ED physician X-Ray Chest Interpretation Chest Xray Interpretation: Impression: No acute pulmonary findings cardiomegaly pacemaker prosthetic valve View: Portable Interpretation / Wet Read by: Wet read ED physician CT Head Interpretation Impression: No CT evidence of hemorrhage, mass, or acute infarct. Study: Head CT no contrast Interpretation / Wet Read by: Interpret - Radiologist CT C-Spine Interpretation CT LUMBAR SPINE IMPRESSION: No CT evidence of abscess Study type: CT no contrast Interpretation / Wet Read by: Interpret - Radiologist Re-Eval/Medical Decision Med Decision/Clinical Course 86-year-old with altered mental status, fever, and recent history of blood cultures positive for strep mitis, worrisome with a background of a porcine aortic valve replacement. CT is negative for bleeding, and he is moderately over anticoagulated. He is anemic, but with a normal white count. Sedimentation rate is elevated at seventy-seven. Blood cultures 4 sets are pending. Concern is obviously for subacute bacterial endocarditis. He has had significant back pain recently and an episode of urinary incontinence today. CT of his lumbar spine did not reveal epidural abscess or other worrisome lesion. He is not a candidate for MR due to his pacemaker. He is admitted to medicine service presumably with consultation to infectious diseases cardiac echo and GUSTAVO if necessary. Treat empirically for endocarditis Time of Eval: 23:57 Re-Evaluation/Progress Note: Pt rechecked. Informed pt and family of need for admission. Waiting on labwork. Plan for CT. All questions addressed. Consultation : Referral / Consult Name: Stanley Garcia MD Consulted With: Hospitalist Call Returned at: 00:05 Restrike Hammer Operator: Agrees with eval, Agrees with plan Note: Case discussed. Dr. Garcia accepts admit. Counseled Regarding: Diagnosis, Lab results, Need for admission Discharge & Departure Primary Impression: Sepsis Sepsis type: sepsis due to unspecified organism Qualified Code: A41.9 - Sepsis, unspecified organism Additional Impressions: Altered mental status Altered mental status type: unspecified Qualified Code: R41.82 - Altered mental status, unspecified SBE (subacute bacterial endocarditis) Lumbosacral pain Fever Disposition: ADMITTED TO HOSPITAL Discharge Condition All VS Reviewed: Yes Condition: Stable Referrals: Gonzalez Murillo DO (PCP) Aide Attestation Portion of this note were transcribed by Heaven Hickman. I, Dr. Rosado, personally performed the history, physical exam, and medical decision-making: I reviewed and confirmed the accuracy for the information in the transcribed note. Signed by: aide Sherman, 01/10/17 0100 copies to: Gonzalez Murillo Christopher W MD Jan 09, 2017 22:14 Heaven Hickman Jan 09, 2017 22:22 Urine Red Blood Cell Casts None seen (NONE SEEN) Urine White Blood Cell Casts None seen (NONE SEEN) Urine Mucus None seen (None Seen) Urine Trichomonas None seen (NONE SEEN) Urine Yeast None (NONE SEEN) Urine Culture Reflexed Not indicated Acetaminophen Level 15.0ug/mL Rx (10-25) Lactic Acid Level 0.7mmol/L (0.4-2.0) ECG Interpretation ECG Interpretation: atrial-sensed ventricular-paced complexes (rate 84) pacemaker Time: 11:03 Interpreted by: ED physician X-Ray Chest Interpretation Chest Xray Interpretation: Impression: No acute pulmonary findings cardiomegaly pacemaker prosthetic valve View: Portable Interpretation / Wet Read by: Wet read ED physician CT Head Interpretation Impression: No CT evidence of hemorrhage, mass, or acute infarct. Study: Head CT no contrast Interpretation / Wet Read by: Interpret - Radiologist CT C-Spine Interpretation CT LUMBAR SPINE IMPRESSION: No CT evidence of abscess Study type: CT no contrast Interpretation / Wet Read by: Interpret - Radiologist Re-Eval/Medical Decision Time of Eval: 23:57 Re-Evaluation/Progress Note: Pt rechecked. Informed pt and family of need for admission. Waiting on labwork. Plan for CT. All questions addressed. Consultation : Referral / Consult Name: Stanley Garcia MD Consulted With: Hospitalist Call Returned at: 00:05 Restrike Hammer Operator: Agrees with eval, Agrees with plan Note: Case discussed. Dr. Garcia accepts admit. Counseled Regarding: Diagnosis, Lab results, Need for admission Discharge & Departure Primary Impression: Sepsis Sepsis type: sepsis due to unspecified organism Qualified Code: A41.9 - Sepsis, unspecified organism Additional Impressions: Altered mental status Altered mental status type: unspecified Qualified Code: R41.82 - Altered mental status, unspecified SBE (subacute bacterial endocarditis) Disposition: ADMITTED TO HOSPITAL Discharge Condition All VS Reviewed: Yes Condition: Stable Referrals: Gonzalez Murillo DO (PCP) Scribklarissa Attestation Portion of this note were transcribed by Heaven Hickman. I, Dr. Rosado, personally performed the history, physical exam, and medical decision-making: I reviewed and confirmed the accuracy for the information in the transcribed note. Signed by: aide Sherman, 01/10/17 0100 copies to: Gonzalez Murillo Christopher W MD Jan 09, 2017 22:14 Heaven Hickman Jan 09, 2017 22:22
[2017-01-09 22:24] VITALS: BP 141/72; PULSE 70; RESP 20; O2SAT 98
[2017-01-09 22:40] LABS: BASOPHILS % (AUTO) 0.2 % (0-3); EOSINOPHILS % (AUTO) 0.2 % (0-5); MONOCYTES % (AUTO) 4.4 % (4-12); Mean Corpuscular Hemoglobin 28.8 pg (27.0-35.0); Mean Corpuscular Volume 91.5 fL (81-100); NEUTROPHILS % (AUTO) 76.6 % (40-74); Platelet Count 309 bil/L (150-400)
[2017-01-09 22:45] LABS: INR 4.97 ratio
[2017-01-09 23:01] LABS: TROPONIN T 0.01 ug/L (0.0-0.011)
[2017-01-09 23:04] LABS: APPEARANCE,URINE CLEAR (CLEAR,HAZY); COLOR,URINE YELLOW (YELLOW); OCCULT BLOOD,URINE SMALL (NEGATIVE); UROBILINOGEN,URINE NORMAL (NORMAL)
[2017-01-09 23:12] LABS: ERYTHROCYTE SEDIMENTATION RATE 77 mm/hr (0-30)
[2017-01-09 23:18] LABS: Magnesium 2.2 mg/dL (1.6-2.6); Phosphorus 2.5 mg/dL (2.5-4.9)
[2017-01-10] VITALS (11 sets, daily range): BP systolic 93–134; BP diastolic 46–70; PULSE 63–81; RESP 16–22; O2SAT 93–98
[2017-01-10] MEDS ORDERED: 0.9% Sodium Chloride 1,000 ML IV SCH (00:08)
[2017-01-10] MEDS ORDERED: Alum-Mag Hydrox-Simeth 30 mL Suspension PO PRN (00:10)
[2017-01-10] MEDS ORDERED: Ondansetron 2 mg/mL 2 mL Inj IVPUSH PRN (00:10)
[2017-01-10] MEDS ORDERED: Polyethylene Glycol (PEG) 17 Gm Powder PO PRN (00:10)
--- NOTE | 2017-01-10 00:22 | PCM.HPMED ---
Subjective Date of Service Jan 10, 2017 Primary Provider: Admitting Physician: Primary Care Physician: Raúl Estrada MD Attending Physician: Admit Status: From the Emergency Department, Full Admit, Remote Telemetry Chief Complaint: Acute Confusion History of Present Illness: Jair Argueta is an 86 y/o male CAD s/p CABG 5 with dual-chamber pacemaker, prosthetic heart valve 2013, HTN, HLD, A-fib on warfarin, prostate CA in remission and anxiety presenting to [facility] emergency department via EMS accompanied by his and daughter due to altered mental status onset yesterday. He is usually very talkative and articulate. He now presents confused, unfocused , unable to provide any history tonight and is "distinctly different from his usual self." He was attending a yarsanism conference pamight. Per patient's daughter, he has been in extreme back pain for several days. He denies vomiting , nausea, and cough. Associated symptoms include fever (subjective) and possible chills and urinary incontinence earlier today. Just started taking hydrocodone yesterday (prescribed by PCP after family called Clinic) and has not been telling his PCP how much pain he has been in. He had dental work done on (according to family two teeth were removed and had antibiotics prior to procedure). His mental status was normal yesterday as per family report. Denies any sick contacts at home or travels Of note patient was hospitalized in October 2016 for acute encephalopathy and found to have Streptococcus mitis bacteremia. Patient's discharge summary from 10/30/2016 does not mention Streptococcus mitis bacteremia however follow-up oncology note mention it. Outpatient records patient looks to be started on Levaquin 500 mg daily starting on 11/04/2016. Patient admitted 11/21/16-11/24/16 due to witnessed syncope. Workup was unremarkable including a echo that showed no changes from prior Case discussed with Dr Alonzo greco. Ct head unremarkable. Plan to obtain blood cultures then initiate broad spectrum antibiotics for suspected endocarditis Review of Systems: unable to be obtain due to confusion Allergies Coded Allergies: lisinopril (Verified Allergy, Mild, cough, 11/21/16) hydromorphone (Verified Adverse Reaction, Severe, hallucinations, 11/21/16) Home Medications From [facility], not yet confirmed Jair Argueta [id number] 1930 12/30/2016 10:00 AM Page: 09/22 Cartia XT 120 mg capsule,extended release take 1 Capsule by oral route every day Celexa 10 mg tablet take 1 tablet by oral route every day Co Q-10 100 mg capsule take 1 by mouth daily with food Fish Oil 1,000 mg capsule take 1 cap by mouth daily losartan 50 mg tablet take 1 tablet by oral route every day Aspirin Low Dose 81 mg tablet,delayed release take 1 tablet by oral route every day multivitamin tablet take 1 tablet by oral route every day with food rosuvastatin 5 mg tablet take 1/2 tablet by oral route every other day [place] Oil-1000 1,000 mg-200 mg capsule take 1 cap by mouth daily warfarin 5 mg tablet take 1 tablet (5mg) daily except take one half tablet ( 2.5mg) on Sat PMH Jair Argueta [id number] 1930 03/05/2016 03:00 PM 1/6 Right bundle branch block Mobitz type 2 second degree atrioventricular block Pneumonia of left lower lobe due to infectious organism Coronary atherosclerosis Acute renal failure Murmur Atrial fibrillation Hyperlipidemia Paroxysmal atrial fibrillation Polyarthritis Prostate Cancer in remission Bradycardia Essential hypertension Subungual hematoma, hand Cardiac pacemaker Subconjunctival hemorrhage Anxiety CAD - Coronary artery disease s/p CABG Vitamin B12 deficiency Hematuria Cancer screening follow up intermediate (current) use of anticoagulants Aortic valve stenosis S/P AVR Syncope and collapse Depressive disorder Surgical History CABG Pacemaker placement Shoulder surgery Left cataract Bioprosthetic heart valve Family History Mother at 96 years old from "old age" Father in his 80s from cardiac cause Social History Hx Alcohol Use: No Hx Substance Use: No Hx Tobacco Use: Yes Smoking Status: Former Smoker Living Arrangement: with Family (with his ) Exam Vital Signs Vital Sign - Last Date Time Temp Pulse Resp B/P Pulse Ox O2 Delivery O2 Flow Rate FiO2 01/09/17 22:24 38.2 70 20 141/72 98 Room Air Exam General: Alert, Oriented X3, Cooperative, Mild acute Distress due to back pain Eyes: PERRLA, Scleral Anicteric Mouth: Mouth Normal, Mucous Membranes Moist/Sellers Neck: Supple, no Thyromegaly, trachea central. Chest & Lungs: Clear to auscultation & percussion, No adventitious breath sounds, no crackles, no wheeze Cardiovascular: Normal S1, Normal S2, No Murmurs/Rubs/Gallops, Regular Rate/ Rhythm, (No JVD, no peripheral edema) Pulses: Radial (present and equal), Dorsalis Pedi (present and equal) Abdomen: Soft, Non-tender, Non-distended, Normoactive bowel tones. Musculoskeletal: Unremarkable. Normal range of motion, no swollen or erythematous joints. tenderness along lumbar spine Extremities: No edema, no cyanosis, no clubbing. Skin: No rashes. Warm and dry, no erythematous areas Neurological: Grossly neurologically intact, has generalized weakness, Normal Speech, Sensation Intact Lymphatic: Lymph nodes Cervical and Axillary not palpable. Lab and Diagnostics Labs Laboratory Tests Test 01/09/17 22:15 01/09/17 22:20 01/09/17 22:45 01/09/17 22:55 White Blood Count 8.2th/mm3 (3.8-10.1) Red Blood Count 3.19mil/mm3 (4.40-5.80) Hemoglobin 9.2g/dL (13.8-17.2) Hematocrit 29.2% (41.0-50.0) Mean Corpuscular Volume 91.5fL (81-100) Mean Corpuscular Hemoglobin 28.8pg (27.0-35.0) Mean Corpuscular Hemoglobin Concent 31.5% (32.0-37.0) Red Cell Distribution Width 16.1% (12.3-15.4) Platelet Count 309bil/L (150-400) Neutrophils (%) (Auto) 76.6% (40-74) Lymphocytes (%) (Auto) 18.5% (14-46) Monocytes (%) (Auto) 4.4% (4-12) Eosinophils (%) (Auto) 0.2% (0-5) Basophils (%) (Auto) 0.2% (0-3) Erythrocyte Sedimentation Rate 77mm/hr (0-30) Hold Purple Top Tube Received (Received) Prothrombin Time 54.9sec (8.1-12.5) Prothromb Time International Ratio 4.97ratio Hold Blue Top Tube Received (Received) Sodium Level 132mEq/L (134-144) Potassium Level 4.4mEq/L (3.5-5.2) Chloride Level 97mEq/L (97-108) Carbon Dioxide Level 20mmol/L (18-29) Blood Urea Nitrogen 17mg/dL (8-27) Creatinine 1.03mg/dL (0.76-1.27) Estimat Glomerular Filtration Rate 73mL/min (>59) Glucose Level 97mg/dL (60-99) Calcium Level 8.8mg/dL (8.5-10.1) Phosphorus Level 2.5mg/dL (2.5-4.9) Magnesium Level 2.2mg/dL (1.6-2.6) Total Bilirubin 0.6mg/dL (0.0-1.2) Aspartate Amino Transf (AST/SGOT) 21U/L (0-50) Alanine Aminotransferase (ALT/SGPT) 12U/L (0-44) Alkaline Phosphatase 75U/L (25-160) Troponin T 0.010ug/L (0.0-0.011) Pro-B-Type Natriuretic Peptide 2836pg/mL (0-486) Total Protein 7.6g/dL (6.4-8.4) Albumin 3.3g/dL (3.4-5.0) Procalcitonin 0.18ng/mL (0.00-0.08) Hold Red Top Tube Received (Received) Hold [place] Top Tube Received (Received) Urine Color Yellow (YELLOW) Urine Appearance Clear (CLEAR,HAZY) Urine pH 6.0 (5.0-8.0) Urine Specific [place] 1.015 (1.003-1.035) Urine Protein Negativemg/dL (NEG,TRACE) Urine Glucose (UA) Negativemg/dL (NEGATIVE) Urine Ketones Negativemg/dL (NEGATIVE) Urine Occult Blood Small (NEGATIVE) Urine Nitrite Negative (NEGATIVE) Urine Bilirubin Negative (NEGATIVE) Urine Urobilinogen Normalmg/dL (NORMAL) Urine Leukocyte Esterase Negative (NEGATIVE) Urine RBC 3-10/hpf (0-2) Urine WBC 0-5/hpf (0-5) Urine Epithelial Cells Occasional/hpf (NONE-MOD) Urine Crystals None seen (NONE SEEN) Urine Bacteria None/hpf (NONE-FEW) Urine Hyaline Casts None/lpf (NONE) Urine Granular Casts None seen (NONE SEEN) Urine Waxy Casts None seen (NONE SEEN) Urine Red Blood Cell Casts None seen (NONE SEEN) Urine White Blood Cell Casts None seen (NONE SEEN) Urine Mucus None seen (None Seen) Urine Trichomonas None seen (NONE SEEN) Urine Yeast None (NONE SEEN) Urine Culture Reflexed Not indicated Acetaminophen Level 15.0ug/mL Rx (10-25) Lactic Acid Level 0.7mmol/L (0.4-2.0) Microbiology 01/09/17 Blood Culture, Received Pending Result Diagram: 01/09/17221401/09/172214 X-Rays, CTs and MRIs X-Ray Chest Interpretation Impression: No acute pulmonary findings cardiomegaly pacemaker prosthetic valve View: Portable Interpretation / Wet Read by: Wet read ED physician ----- CT Head Interpretation Impression: No CT evidence of hemorrhage, mass, or acute infarct. Study: Head CT no contrast Interpretation / Wet Read by: Interpret - Radiologist Assessment & Plan Jair Argueta is an 86 y/o male CAD s/p CABG 5 with dual-chamber pacemaker, prosthetic heart valve 2013, HTN, HLD, A-fib on warfarin, prostate CA in remission and anxiety presenting to [facility] emergency department via EMS accompanied by his and daughter due to altered mental status 1. Acute Encephalopathy. Present on admission Etiology unclear but suspect due to Infection. Also could be related to hyponatremia - CT head showed no bleeding - treat underlying cause (see below) - high risk for delirium, avoid psychoactive medications such as benzodiazepines 2. Fever due to Possible Endocarditis. Present on admission Patient has a Previous history of Strep mitis bacteria on unclear source or significance. Recent dental procedure may be risk factors. Also considering vertebral abscess with acute on chronic back pain. - monitor on telemetry - Vancomycin, Cefepime and Gentamicin IV - Blood cultures x 4 - consult Dr Post for guidance concerning antibiotics 3 Mild Hyponatremia. Acute. Present on admission Likely Hypovolemia - monitor with fluids given 4 Chronic Atrial Fibrillation on Coumadin with supra therapeutic INR No evidence of bleeding noted - Continue with home diltiazem 120mg daily for rate control - holding warfarin for now, pharmacy to dose 5 Hypertension, Chronic - Continue home Losartan 50mg daily 6 Coronary artery disease s/p CABG. No anginal symptoms at this time - continuing Aspirin and Rosuvastatin or equivalent - Acetaminophen as needed for mild pain/fever/headache - Bowel regimen as needed - Antiemetic as needed Patient admitted under inpatient status with expected length of stay > 2 midnights for severity of present symptoms, complexities of treatment plan and risk for adverse event . Resuscitation Status: CPR: Attempt Resuscitation Stanley Garcia MD Jan 10, 2017 00:22 Celexa 10 mg tablet take 1 tablet by oral route every day Co Q-10 100 mg capsule take 1 by mouth daily with food Fish Oil 1,000 mg capsule take 1 cap by mouth daily losartan 50 mg tablet take 1 tablet by oral route every day multivitamin tablet take 1 tablet by oral route every day with food warfarin 5 mg tablet take 1 tablet (5mg) daily except take one half tablet ( 2.5mg) on Sat Resuscitation Status: CPR: Attempt Resuscitation Stanley Garcia MD Jan 10, 2017 00:22
[2017-01-10] MEDS ORDERED: HYDROcodone-APAP 5-325 mg Tablet PO ONE (00:50)
[2017-01-10] MEDS: Vancomycin Dose per Pharmacist XX SCH ×2 (01:15→08:30)
[2017-01-10] MEDS ORDERED: Gentamicin Per Pharmacist XX SCH (01:15)
[2017-01-10] MEDS ORDERED: RIFAMPIN IV SCH (01:15)
[2017-01-10] MEDS ORDERED: SODIUM CHLORIDE 0.9% IV SCH (01:15)
[2017-01-10] MEDS ORDERED: Vancomycin Inj 1,500 MG in 0.9% Sodium Chloride 500 ML IV ONE (01:50)
[2017-01-10] MEDS ORDERED: Cefepime Inj 2,000 MG in Dextrose 5% Minibag Plus 50 ML IV ONE (02:05)
--- NOTE | 2017-01-10 02:27 | NUR ---
Admission Pt arrived from the ED at 0130. Pt arrived via stretcher. Not able to stand. Lower extremities, pt has strength to push but not able to lift. Denies any changes to sensation. Able to move upper extremities ad chasidy. Abdomen distended, tender, but not firm. Skin positive for CWMS. Tele placed, pt is paced in the 70's with occassional PVCs. Water given, put able to swallow without issues. No voiced concerns.
[2017-01-10] MEDS ORDERED: DEXTROSE 5% IV ONE (02:35)
[2017-01-10] MEDS ORDERED: GENTAMICIN IV ONE (02:35)
[2017-01-10 03:38] LABS: BASOPHILS % (AUTO) 0.3 % (0-3); EOSINOPHILS % (AUTO) 0.1 % (0-5); MONOCYTES % (AUTO) 5.1 % (4-12); Mean Corpuscular Hemoglobin 29.5 pg (27.0-35.0); Mean Corpuscular Volume 92.3 fL (81-100); NEUTROPHILS % (AUTO) 75.7 % (40-74); Platelet Count 257 bil/L (150-400)
[2017-01-10 04:08] LABS: INR 5.19 ratio
--- NOTE | 2017-01-10 04:49 | PCM.CONPHA ---
Subjective Date of Service: Jan 10, 2017 Requesting Provider: Stanley Garcia MD Acute Confusion Reason for Pharmacy Consult: Vancomycin Dosing, Aminoglycoside Dosing, Anticoagulation Management Objective Vital Signs Date Time Temp Pulse Resp B/P Pulse Ox O2 Delivery O2 Flow Rate FiO2 01/10/17 03:47 36.9 66 18 100/46 93 Room Air 01/10/17 01:15 37.2 79 22 115/63 94 Room Air 01/10/17 00:43 36.9 70 16 134/70 98 Room Air 01/09/17 22:24 38.2 70 20 141/72 98 Room Air Weight (Kilograms): 73.800 Height (Feet): 5 Height (Inches): 10.00 Test 01/09/17 22:15 01/09/17 22:20 01/09/17 22:45 01/09/17 22:55 Erythrocyte Sedimentation Rate 77mm/hr (0-30) Hold Purple Top Tube Received (Received) Hold Blue Top Tube Received (Received) Phosphorus Level 2.5mg/dL (2.5-4.9) Magnesium Level 2.2mg/dL (1.6-2.6) Total Bilirubin 0.6mg/dL (0.0-1.2) Aspartate Amino Transf (AST/SGOT) 21U/L (0-50) Alanine Aminotransferase (ALT/SGPT) 12U/L (0-44) Alkaline Phosphatase 75U/L (25-160) Troponin T 0.010ug/L (0.0-0.011) Pro-B-Type Natriuretic Peptide 2836pg/mL (0-486) Total Protein 7.6g/dL (6.4-8.4) Albumin 3.3g/dL (3.4-5.0) Procalcitonin 0.18ng/mL (0.00-0.08) Hold Red Top Tube Received (Received) Hold [place] Top Tube Received (Received) Urine Color Yellow (YELLOW) Urine Appearance Clear (CLEAR,HAZY) Urine pH 6.0 (5.0-8.0) Urine Specific [place] 1.015 (1.003-1.035) Urine Protein Negativemg/dL (NEG,TRACE) Urine Glucose (UA) Negativemg/dL (NEGATIVE) Urine Ketones Negativemg/dL (NEGATIVE) Urine Occult Blood Small (NEGATIVE) Urine Nitrite Negative (NEGATIVE) Urine Bilirubin Negative (NEGATIVE) Urine Urobilinogen Normalmg/dL (NORMAL) Urine Leukocyte Esterase Negative (NEGATIVE) Urine RBC 3-10/hpf (0-2) Urine WBC 0-5/hpf (0-5) Urine Epithelial Cells Occasional/hpf (NONE-MOD) Urine Crystals None seen (NONE SEEN) Urine Bacteria None/hpf (NONE-FEW) Urine Hyaline Casts None/lpf (NONE) Urine Granular Casts None seen (NONE SEEN) Urine Waxy Casts None seen (NONE SEEN) Urine Red Blood Cell Casts None seen (NONE SEEN) Urine White Blood Cell Casts None seen (NONE SEEN) Urine Mucus None seen (None Seen) Urine Trichomonas None seen (NONE SEEN) Urine Yeast None (NONE SEEN) Urine Culture Reflexed Not indicated Acetaminophen Level 15.0ug/mL Rx (10-25) Lactic Acid Level 0.7mmol/L (0.4-2.0) Test 01/10/17 03:30 White Blood Count 7.7th/mm3 (3.8-10.1) Red Blood Count 2.71mil/mm3 (4.40-5.80) Hemoglobin 8.0g/dL (13.8-17.2) Hematocrit 25.0% (41.0-50.0) Mean Corpuscular Volume 92.3fL (81-100) Mean Corpuscular Hemoglobin 29.5pg (27.0-35.0) Mean Corpuscular Hemoglobin Concent 32.0% (32.0-37.0) Red Cell Distribution Width 16.0% (12.3-15.4) Platelet Count 257bil/L (150-400) Neutrophils (%) (Auto) 75.7% (40-74) Lymphocytes (%) (Auto) 18.4% (14-46) Monocytes (%) (Auto) 5.1% (4-12) Eosinophils (%) (Auto) 0.1% (0-5) Basophils (%) (Auto) 0.3% (0-3) Prothrombin Time 57.4sec (8.1-12.5) Prothromb Time International Ratio 5.19ratio Sodium Level 130mEq/L (134-144) Potassium Level 4.3mEq/L (3.5-5.2) Chloride Level 99mEq/L (97-108) Carbon Dioxide Level 18mmol/L (18-29) Blood Urea Nitrogen 17mg/dL (8-27) Creatinine 0.99mg/dL (0.76-1.27) Estimat Glomerular Filtration Rate 76mL/min (>59) Glucose Level 102mg/dL (60-99) Calcium Level 7.9mg/dL (8.5-10.1) Assessment/Plan Assessment/Plan Pharmacy has been asked to manage warfarin, vancomycin and gentamicin dosing for this 86 y/o male patient Warfarin: * This patient has a history significant for CAD, CABG x5, pacemaker placement, prosthetic AVR 2013, prostate cancer, HTN, HLD, and atrial fibrillation * Terapio's med rec shows that he takes warfarin 5 mg daily at home, but it is unclear what dose the patient is actually taking * Other than antibiotics, no significant drug interactions noted with his current medications or what he takes at home per med rec * INR supratherapeutic at 4.97 on 01/09 and 5.19 on 01/10 * Hold warfarin until INR is at least below 3 * Pharmacy to follow INR daily and determine dosing Vancomycin: * 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 * He is being started on vancomycin, gentamicin and cefepime * His estimated CrCl is 52 mL/min (Cockcroft & Gault) * Estimated vancomycin half-life is 15 hours and estimated Vd is 52 liters * Starting vancomycin 1500 mg IV every 24 hours * Target a vancomycin trough range of 15 - 20 mcg/mL * Drawing a trough level prior to the third vancomycin dose * Monitor renal function closely as this patient is also on gentamicin Gentamicin: * Gentamicin dosing weight for this patient is 74 kg (ABW) * Estimated gentamicin half-life is 4.2 hours and estimated Vd is 22 liters * Starting gentamicin 220 mg IV every 24 hours (3 mg/kg) * Target a gentamicin trough level of less than 1 mcg/mL and a peak range of 8 - 10 mcg/mL * Drawing trough and peak levels with the fourth gentamicin dose Thank you for involving pharmacy in the care of this patient. We will continue to follow. Afshan Neville, PharmD Afshan Neville Jan 10, 2017 04:49
--- NOTE | 2017-01-10 07:56 | DRSVH ---
PROCEDURE: CT BRAIN WITHOUT CONTRAST ([id number]) INDICATIONS: Acute altered mental status on coumadin TECHNIQUE: Noncontrast 4.5 mm thick angled axial sections acquired from the foramen magnum to the vertex, with c oronal reformats. COMPARISON: [facility], CT, BRAIN (TPA), 11/21/2016, 15:33. [facility], CT, BRAIN W/O CONTRAST, 12/21/2013, 17:13. [facility], MR, STROKE PROTOCOL (PNL), 12/22/2013, 12:30. [facility], CT, CT BRAIN WO CON, 10/29/2016, 19:29. FINDINGS: Image quality: Excellent. CSF spaces: Basal cisterns are patent. No extra-axial fluid collections. The ventricles are symmet taisha in size and shape. Brain: No intracranial bleeds. Calcified posterior left frontal parafalcine extra-axial mass is stab le compared to prior examinations. There is cerebral volume loss for age, with resultant ventricular and sulcal prominence. There are periventricular and deep white matter chronic small vessel ischemic changes. There is intracranial internal carotid artery and vertebral artery atherosclerosis. Skull and face: Calvarium and visualized facial bones appear intact, without suspicious lesions. Sinuses: Visualized sinuses and mastoids are clear. IMPRESSION: No acute intracranial disease process. Dictated by: Almita Ace MD, PhD on 01/10/2017 at 7:50 Approved by: Almita Ace MD, PhD on 01/10/2017 at 7:54
[2017-01-10] MEDS ORDERED: CITA10TA9 PO (08:02)
--- NOTE | 2017-01-10 08:13 | DRSVH ---
PROCEDURE: CT LUMBAR SPINE WITH CONTRAST ([id number]) INDICATIONS: back pain, possible SBE possible abscess TECHNIQUE: After the administration of intravenous Isovue contrast, 3 mm thick sections acquired through the lev els of interest. Sagittal and coronal reformats were then constructed. For radiation dose reduction , the following was used: automated exposure control. COMPARISON: None. FINDINGS: Image quality: Excellent. Bones: Grade 1 L4-L5 degenerative anterolisthesis is noted. No vertebral body compression fractures. Multilevel degenerative disc disease and facet arthropathy are noted. No significant central stenosis . Severe bilateral L4-L5 and moderate bilateral L5-S1 neural foraminal narrowing secondary to disc di sease and facet arthropathy noted. Soft tissues: Scattered atherosclerotic calcifications are noted. Visualized paraspinal soft tissues are within normal limits. Incidental note made of bilateral renal cysts.. No abscess identified. IMPRESSION: No abscess identified by CT imaging. Dictated by: Almita Ace MD, PhD on 01/10/2017 at 8:08 Approved by: Almita Ace MD, PhD on 01/10/2017 at 8:12
--- NOTE | 2017-01-10 09:13 | DRSVH ---
PROCEDURE: X-RAY CHEST ONE VIEW, PORTABLE ([id number]) INDICATIONS: Acute altered mental status, bioprosthetic aortic valve, fever TECHNIQUE: One view of the chest was acquired. COMPARISON: [facility], CR, XR CHEST 1VW (PORTABLE), 10/29/2016, 18:19. FINDINGS: Surgical changes and devices: Status post CABG procedure aortic valve replacement. Dual-lead cardiac pacer is stable. Lungs and pleura: No pleural effusions or pneumothorax. Lungs are clear. Mediastinum: Mediastinal contours appear normal. Heart size is normal. Bones and chest wall: No suspicious bony lesions. Post surgical changes in the right clavicle stable compared to prior examination. Overlying soft tissues appear unremarkable. IMPRESSION: No acute cardiopulmonary disease process. Dictated by: Almita Ace MD, PhD on 01/10/2017 at 9:10 Approved by: Almita Ace MD, PhD on 01/10/2017 at 9:12
--- NOTE | 2017-01-10 12:26 | NUR ---
Evaluation completed/discharge to nsg Please go to "Notes" then click on "Assessments and Notes" (bottom left corner of screen). Then select appropriate discipline tab on top of screen. OK to be up with nsg SBA; no further PT
[2017-01-10] MEDS: Cefepime Inj 2,000 MG in Dextrose 5% Minibag Plus 50 ML IV SCH ×2 (14:59→21:54)
--- NOTE | 2017-01-10 15:29 | NUR ---
Social Work Note: Initial Assessment Data& Assessment: EMR reviewed. SW met with pt and pt family at bedside to discuss discharge planning, SW role explained. Jair Argueta is a 86 year old male admitted on 01/10/2017 for sepsis and AMS. Pt has Medicare and [employer] supplement. Pt sees Raúl Estrada MD for primary care. Pt lives in [place] with his spouse and is independent at baseline with all ADL's. Pt does not require any DME. Pt drives. Pt does not have HH or SNF hx. Pt does not have LTC insurance or VA benefits. Pt lives in a one story home with a ramp to enter the home. PT has cleared pt to return home with out pt PT. SW requested pt daughter bring in copy of DPOA paperwork for pt chart, Advance Directive paperwork provided. Pt and pt family denies any other needs at this time. SW to continue to follow if any needs arise. Plan: Anticipated discharge home via POV when medically ready. Pt family to transport home at time of discharge. Pt denies any other needs at this time. SW to continue to follow if any needs arise. ALFA Rayo Addendum: 01/10/17 at 1537 by KELLY BRANCH Amended: Links added.
--- NOTE | 2017-01-10 17:54 | NUR ---
Pain Patient c/o 8/10 back pain with any sort of movement. Problem has been on going for several weeks per patient. Tramadol 50 mg given, patient stated good relief.
--- NOTE | 2017-01-10 23:30 | NUR ---
back discomfort patient complains of back discomfort occurs with activity. medicated with tramadol 50mg po. repositioned on right side with pillows. tolerated well. care ongoing
[2017-01-11] VITALS (8 sets, daily range): BP systolic 95–131; BP diastolic 53–65; PULSE 62–79; RESP 16–20; O2SAT 90–97
[2017-01-11] MEDS ORDERED: 0.9% Sodium Chloride 250 ML ONE ×2 (02:53→11:52)
[2017-01-11] MEDS: Vancomycin Inj 1,500 MG in 0.9% Sodium Chloride 500 ML IV SCH (04:52)
[2017-01-11 04:57] LABS: BASOPHILS % (AUTO) 0.4 % (0-3); EOSINOPHILS % (AUTO) 1.3 % (0-5); MONOCYTES % (AUTO) 6.1 % (4-12); Mean Corpuscular Hemoglobin 29.4 pg (27.0-35.0); Mean Corpuscular Volume 91.1 fL (81-100); Platelet Count 273 bil/L (150-400)
[2017-01-11] MEDS ORDERED: GENTAMICIN IV SCH (05:00)
[2017-01-11] MEDS ORDERED: DEXTROSE 5% IV SCH (05:00)
[2017-01-11 05:19] LABS: INR 3.29 ratio
[2017-01-11] MEDS: Cefepime Inj 2,000 MG in Dextrose 5% Minibag Plus 50 ML IV SCH (06:39)
[2017-01-11] MEDS: Vancomycin Dose per Pharmacist XX SCH (08:30)
--- NOTE | 2017-01-11 11:28 | PCM.PHAPRO ---
Progress Date of Service: Jan 11, 2017 Warfarin: This patient has a history significant for CAD, CABG x5, pacemaker placement , prosthetic AVR 2014, prostate cancer, HTN, HLD, and atrial fibrillation [facility]ix's med rec shows that he takes warfarin 5 mg daily at home, but it is unclear what dose the patient is actually taking Other than antibiotics, no significant drug interactions noted with his current medications or what he takes at home per med rec -Jan 10-Jan 11-Dec 4.97 5.19 3.29 ~ 0.22 -1.9 UNK HOLD HOLD Hold warfarin until INR is at least below 3 Pharmacy to follow INR daily and determine dosing THANKS! Roxane Draper PharmD Jan 11, 2017 11:28
[2017-01-11] MEDS: cefTRIAXone Inj 2,000 MG in Dextrose 5% Minibag Plus 50 ML IV SCH (12:08)
--- NOTE | 2017-01-11 12:55 | DRSVH ---
[facility] [address] [place] [address] Echocardiogram Report Name: ANCA ZUNIGA Date: 01/11/2017 Height: 70 in Hospital Exam Location: [facility] Weight: 159 lb Gender: Male BSA: 1.9 m2 : 1930 Age: 86 yrs BP: 95/60 mmHg Reason For Study: SEPSIS Ordering Physician: HOSPITALIST [facility] Performed By: Aure David Referring Physician: Juan Smiley Interpretation Summary The left ventricle is normal in size. There is mild concentric left ventricular hypertrophy. Left ventricular systolic function is normal. The ejection fraction is estimated to be 55-60%. Compared to the prior exam, left ventricular function is borderline improved. Apical wall motion abnormality may reflect pacemaker activation. There is apical septal wall hypokinesis. Compared to the prior exam, the left ventricular wall motion has not changed. The right ventricle is normal in size and function. There is a pacemaker lead in the right ventricle. The right ventricular systolic pressure is estimated at 44 mmHg assuming a right atrial pressure of 3 mm Hg. The left atrium is moderately dilated. The right atrium is severely dilated. There is a bioprosthetic aortic valve. The prosthetic aortic valve is well- seated. The peak aortic velocity is 3.3 m/sec. The peak aortic velocity on the previous exam was 2.6 m/sec. The aortic valve mean gradient is 29 mmHg. There is no obvious valvular vegetation identified on this exam. Consider GUSTAVO if there is a high degree of clinical suspicion for endocarditis and clinically appropriate. The ascending aorta is mildly enlarged. Procedure: A two-dimensional transthoracic echocardiogram with color flow and Doppler was performed. The study quality was technically adequate. Comparison is made with the echocardiogram of 11-23-2016. The patient has a paced rhythm. Left Ventricle: The left ventricle is normal in size. There is mild concentric left ventricular hypertrophy. Left ventricular systolic function is normal. The ejection fraction is estimated to be 55-60%. Compared to the prior exam, left ventricular function is borderline improved. Apical wall motion abnormality may reflect pacemaker activation. There is apical septal wall hypokinesis. Compared to the prior exam, the left ventricular wall motion has not changed. Right Ventricle: The right ventricle is normal in size and function. There is a pacemaker lead in the right ventricle. Atria: The left atrium is moderately dilated. The right atrium is severely dilated. The interatrial septum is intact with no evidence for an atrial septal defect. Mitral Valve: The mitral valve leaflets appear mildly thickened, but open well. There is mild mitral annular calcification. There is no vegetation seen on the mitral valve. There is trace mitral regurgitation. Aortic Valve: The aortic valve is slightly calcified. The aortic valve opens well. There is a bioprosthetic aortic valve. The prosthetic aortic valve is well-seated. There is no aortic valvular vegetation. The peak aortic velocity is 3.3 m/sec. The peak aortic velocity on the previous exam was 2.6 m/sec. The aortic valve mean gradient is 29 mmHg. No aortic regurgitation is present. Tricuspid Valve: The tricuspid valve leaflets are thin and pliable. There is no tricuspid valve vegetation. There is mild tricuspid regurgitation. The right ventricular systolic pressure is estimated at 44 mmHg assuming a right atrial pressure of 3 mm Hg. Pulmonic Valve: The pulmonic valve leaflets are thin and pliable; valve motion is normal. There is no vegetation on the pulmonic valve. There is a trace or physiologic amount of pulmonic regurgitation. There is no obvious valvular vegetation identified on this exam. Consider GUSTAVO if there is a high degree of clinical suspicion for endocarditis and clinically appropriate. Great Vessels: The aortic root is normal size. The ascending aorta is mildly enlarged. The pulmonary artery is normal size. The IVC is of normal diameter and collapses greater than 50% with a sniff. This suggests a low right atrial pressure of 3 mm Hg. Pericardium/ Pleura There is no pericardial effusion. There is no pleural effusion. MMode/2D Measurements & Calculations LVIDd: 4.9 cm RA long axis LVOT diam LVIDs: 3.4 cm LA A2 area: 26.7 cm FS: 30.9 % LA A4 area: 26.0 cm RA area AoV Opening EPSS: 1.1 cm LA length (vol): 6.5 cm IVSd: 0.95 cm LA vol: 90.8 ml : 27.3 cm Ao root diam LVPWd: 1.1 cm LA vol index RA vol : 104.ml asc Aorta RA Diam: 3.7 cm IVC diam: 2.1 cm : 55.2 mm/ RVDd major : 6.2 cm LV jiménez. diameter/BSA LV sys. diameter/BSA RVD2 (mid) (cm/m^2): 2.6 (cm/m^2): 1.8 : 4.8 cm Doppler Measurements & Calculations Ao V2 max MV E max bladimir MV E/A: 0.82 TR max bladimir : 332.8 cm/sec : 119.9 cm/sec Lat Peak E' Bladimir : 319.0 cm/sec Ao max PG MV A max bladimir TR max PG : 44.3 mmHg : 146.7 cm/sec E/E' lat: 11.6 : 40.7 mmHg Ao mean PG MV P1/2t: 98.9 msec Pulm A Revs Dur PA V2 max : 29.0 mmHg MVA(VTI): 1.6 cm2 : 175.9 cm/sec LVOT Max Bladimir MV A dur: 0.13 sec PA mean PG : 118.3 cm/sec PRITESH(I,D) PA Accel Time : 0.96 cm : 0.07 sec sev ratio MV V2 mean MV P1/2t max bladimir Ao V2 mean LV V1 max PG : 85.2 cm/sec : 261.9 cm/sec MV mean PG Ao V2 VTI: 74.1 cm LV V1 VTI MVA(P1/2t): 2.2 cm2 : 24.6 cm MV V2 VTI PRITESH(V,D): 1.0 cm2 MV dec time : 0.34 sec PA V2 mean PRITESH indexed to BSA Pulm A Revs Dur - MV : 112.6 cm/sec (cm^2/m^2): 0.50 A Dur: 0.01 msec Reading Physician:JENNIE
--- NOTE | 2017-01-11 14:05 | CONS ---
[address] [address] CONSULTATION REPORT PATIENT: ANCA ZUNIGA : 1930 MR#: [id number] ADMIT: 01/10/2017 JOB ID: [id number] CORRECTED REPORT: DATE OF SERVICE: 01/11/[address] Garcia for this consultation. HISTORY OF PRESENT ILLNESS: The patient is a complex,86-year-old gentleman with a history of underlying cardiac disease which includes a bypass as well as placement of a prosthetic valve several years ago. The patient's recent relevant history begins back in October, when he was admitted to this facility because of fever, night sweats, encephalopathy, and a sudden increase in some chronic low back pain. A short workup was done over just a couple days at that time, including imaging of the back with a CT, and some blood cultures. He was actually discharged before the results were known, but multiple blood cultures grew Strep mitis during that admission. Subsequent to that admission this was recognized and he was given a 12-day course the levofloxacin which he took during the latter part of October. The patient reports he actually felt somewhat better during the time he was taking the levofloxacin therapy. His next admission was on November 21 when he came in because of syncope. During that admission, he was re-evaluated with another transthoracic echo, which did not show any problems with his prosthetic aortic valve. Followup blood cultures done on November 21 were negative but he had just finished the levo a few days before. This is his third in a series of three monthly admissions and he was re-admitted last night. The admission last night was precipitated by continuation really of the same problems which include fever and back pain, in association with severe night sweats and perhaps a bit of confusion. The patient was unable to really elucidate what his problems were last night, though this morning, he is very lucid. Unfortunately, he cannot recall a whole lot of what brought him in, but it sounds as if he was confused. He also tells us though very clearly that he has been having these night sweats, which are drenching, on and off since October. He also notes his back pain has been very severe since October and it seems as if his overall health has been somewhat worse over the past three months or so due to fatigue. More specifically, he denies headache or change in vision. He does note his vision is actually better since his recent cataract surgery. He has not had any significant sore throat. He has little in the way of cough and he is chronically a bit short of breath, but that is not a whole lot worse recently. No GI symptoms. His back pain is quite bad and limits his activities. He reports he can still walk, has good sensation and strength in his legs. PAST MEDICAL HISTORY: 1. Organic heart disease. a. AFib. b. Coronary artery disease, status post five-vessel CABG about six years ago. c. Bioprosthetic aortic valve. d. Chronic anticoagulation. 2. Hypertension. 3. Hyperlipidemia. 4. Prostate cancer. 5. Recent syncope. SOCIAL HISTORY: The patient served 17 years in the [employer], then left, and worked for the [employer] for an extended period of time. He is now retired. He was a pipe smoker in the distant past. He is a social consumer of alcohol and lives in [place], [place]. During his time in the [employer], apparently he did not have any long overseas deployments and has not traveled internationally recently. He currently lives with his . FAMILY HISTORY: Negative for tuberculosis in first- and second-degree relatives. REVIEW OF SYSTEMS: The patient has no significant headache today. He notes his vision is better than usual. He has had issues with his teeth and recently flossed out an entire upper tooth, though he reports it did not hurt at all prior to pulling it out with the floss. PHYSICAL EXAMINATION: The neck is without adenopathy and is reasonably supple. The patient's back was palpated all the way down the spine. There is no focal tenderness, but he just has diffuse lumbar-type pain. Lungs relatively clear posteriorly. Cardiac tones with a 2/6 systolic murmur heard across the precordium, but especially well on the right upper chest area. Pacer is present in the left chest that is nontender. He is regular rate and rhythm today. His abdomen is slightly distended, soft, and nontender without organomegaly. He does not have a Rowe catheter or suprapubic fullness. He does not have evidence of synovitis or skin rash. Careful exam of the hands, the palate, and the conjunctivae discloses no evidence of embolization or peripheral manifestations of endocarditis. The patient is neurologically intact with excellent strength in his lower extremities and good reflexes. LABORATORIES: Include white count consistently normal, now 7900. Basically normal diff. Creatinine 0.99. Urinalysis without white cells but does have 3-10 red cells. The blood cultures were reviewed. Back in October, the patient had three of three bottles that grew a very susceptible Strep mitis. Subsequently, on November 21, when he was readmitted, his blood cultures were negative. Today, we now have all blood cultures from the January 09 and January 10 turning positive, which looks like a total of eight bottles. We do not yet have identification on these, but they do appear to be streptococcal. IMAGING: Includes a chest x-ray done in the ER which shows no infiltrate. A brain CT which shows no difference, no notable abnormalities, and a CT of the back which shows degenerative disease but no abscess or osteo. The patient has had numerous echos lately. He had an echocardiogram in October during that admission, during which his prosthetic valve looked to be in good shape without any notable abnormalities. Subsequently, November 23, he had another echo, which again showed the prosthetic valve seem to be working alright, and he has not yet had an echo on this admission. IMPRESSION: This is a very complex case, but I think the patient has either endocarditis or a pacer infection and that this has been present for months. 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 This was not recognized until after he left the hospital, and later sometime in November, he received 12 days of levofloxacin, which he says actually made him feel better for a time. He then had negative blood cultures shortly after stopping the levofloxacin before this admission when we have multiple blood cultures already positive for a Strep species. If the Strep species in the blood is identified tomorrow as Strep mitis, I think this will be almost conclusive proof that his pacer or valve or both are infected. The management of this situation may be difficult as will need, at a minimum, a GUSTAVO to look carefully at his prosthetic valve and also at the pacer leads. It may be difficult to exclude pacer infection in someone who has been bacteremic for so long. The other issue here is his back pain, which he thinks may have started with some minor trauma in October. I remain concerned about the possibility of vertebral osteo or spinal epidural abscess, but we are a bit limited in that he has a pacer, and because of that, we cannot do MRI which would be the preferred choice. It might not be unreasonable to do a bone scan, but these are of lesser sensitivity and specificity, and given the negative CT scan that was obtained already during this admission, I think we are probably okay without any additional imaging of the back at this point. RECOMMENDATIONS: 1. GUSTAVO should be urgently pursued, as I think this will show either prosthetic valve infection, pacer lead infection, or both. 2. We already have susceptibilities for the Strep from October, and I would definitely stop the gentamicin he is receiving now as I think it will just add to toxicity. It may be reasonable to continue with vancomycin until we have back definitive information about the Strep in his blood but we can also go ahead and stop the cefepime he is receiving, as it is overly broad and we have no need for pseudomonal coverage. 3. Will add ceftriaxone which will be the best drug in this circumstance, I predict, and continue with a combination of vancomycin and ceftriaxone until tomorrow when we get some more data. 4. If not already on board, I would certainly recommend that a formal Cardiology consult be done on this complex patient. ADDITIONAL INFORMATION: REVIEW OF SYSTEMS: The patient had no headache. His vision is better than usual. He has issues with his teeth and he recently flossed out an tooth by accident. He reports he has had night sweats, now literally for months as well as progressive malaise and fatigue. He has had no significant cough. He does have some mild shortness of breath with exertion but not a whole lot worse than baseline. No abdominal pain, nausea, vomiting, diarrhea, or dysuria. No skin rash. No neuropathy symptoms. Remainder of the review of systems is negative. PHYSICAL EXAMINATION: The vital signs include temperature 37.1, pulse 75, blood pressure 106/57, saturating 93% on room air. The patient's head is without any trauma. Eyes without conjunctivitis or conjunctival hemorrhages. Oral cavity: No thrush or hairy leukoplakia though he is missing a tooth which he recently flossed out. There is no evident gingivitis, however. Addenda added by DELL 01/12/17 at 9:08am
--- NOTE | 2017-01-11 15:06 | PCM.PNMED ---
Subjective Date of Service Jan 11, 2017 Subjective 86 y/o male with history of CAD, dual-chamber pacemaker, bioprosthetic aortic valve 2013, HTN, A-fib on warfarin, prostate CA in remission presented due to altered mental status with history of night sweats, worsened back pain, anorexia and weight loss. Mental status has improved. Reports no further night sweats since admission. Appetite is moderate. No other abdominal symptoms except constipation. Exam Vital Signs Vital Sign - Last Date Time Temp Pulse Resp B/P Pulse Ox O2 Delivery O2 Flow Rate FiO2 01/11/17 11:57 36.5 79 18 103/57 96 Room Air Intake and Output 01/10/17 01/10/17 01/11/17 Cumulative From/Thru 15:00 23:00 07:00 01/09/17 22:24 - 01/11/17 04:48 Intake Total 250 ml 350 ml 2756 ml Output Total 1350 ml 2950 ml Balance -1100 ml 350 ml -194 ml Intake Oral 250 ml 250 ml IV Total 350 ml 2506 ml Output Urine Total 1350 ml 2950 ml # Bowel Movements 0 0 Exam General: Healthy-appearing elderly man in no acute distress HEENT: sclerae anicteric, oral mucosa moist Neck: no JVD Chest: clear to auscultation, pacer left upper anterior chest is nontender Cardiac: S1S2, paradoxical splitting, II/ systolic murmur at RUSB with carotid radiation, also II/ apical Abdomen: BS normal, protuberant but soft and non-tender, no splenomegaly Extremities: Finger nailbeds show splinters, No edema Neuro: A&O, cranial nerves symmetric, motor strength 5/5, coordination normal IVs and Medications Medications Reviewed: Medications were reviewed in detail Lab and Diagnostics Result Diagram: 01/11/1744401/11/17444 X-Rays, CTs and MRIs PROCEDURE: X-RAY CHEST ONE VIEW, PORTABLE ([id number]) IMPRESSION: No acute cardiopulmonary disease process. Dictated by: Almita Ace MD, PhD on 01/10/2017 at 9:10 PROCEDURE: CT BRAIN WITHOUT CONTRAST ([id number]) IMPRESSION: No acute intracranial disease process. Dictated by: Almita Ace MD, PhD on 01/10/2017 at 7:50 PROCEDURE: CT LUMBAR SPINE WITH CONTRAST ([id number]) IMPRESSION: No abscess identified by CT imaging. Dictated by: Almita Ace MD, PhD on 01/10/2017 at 8:08 . 12-lead ECG EKG 01/09/17 at 23:04 and HR 84, atrial sensed ventricular paced rhythm with PVC Cardiac Echo Impressions Echocardiogram Report Name: ANCA ZUNIGA Study Date: 01/11/2017 Interpretation Summary The left ventricle is normal in size. There is mild concentric left ventricular hypertrophy. Left ventricular systolic function is normal. The ejection fraction is estimated to be 55-60%. Compared to the prior exam, left ventricular function is borderline improved. Apical wall motion abnormality may reflect pacemaker activation. There is apical septal wall hypokinesis. Compared to the prior exam, the left ventricular wall motion has not changed. The right ventricle is normal in size and function. There is a pacemaker lead in the right ventricle. The right ventricular systolic pressure is estimated at 44 mmHg assuming a right atrial pressure of 3 mm Hg. The left atrium is moderately dilated. The right atrium is severely dilated. There is a bioprosthetic aortic valve. The prosthetic aortic valve is well- seated. The peak aortic velocity is 3.3 m/sec. The peak aortic velocity on the previous exam was 2.6 m/sec. The aortic valve mean gradient is 29 mmHg. There is no obvious valvular vegetation identified on this exam. Consider GUSTAVO if there is a high degree of clinical suspicion for endocarditis and clinically appropriate. The ascending aorta is mildly enlarged. . Assessment & Plan Acute and actively manage problems: #. Acute Encephalopathy. Present on admission. Metabolic encephalopathy due to systemic infection.CT head showed no bleeding - Resolving - high risk for delirium, avoid psychoactive medications such as benzodiazepines #. Fever due to Possible Endocarditis. Present on admission Patient has a Previous history of Strep mitis bacteria on unclear source or significance. His symptoms clearly predates his recent dental procedure, for which he received antibiotic prophylaxis. Vertebral abscess is plausible with acute on chronic back pain, but CT scan is negative. MRI not possible due to cardiac pacemaker. Blood cultures positive x 12/22 suggesting endovascular involvement. First full day of antibiotics was 01/10. - monitor on telemetry - Ceftriaxone, also continuing Vancomycin at present - Discontinue Cefepime and Gentamicin IV - Infectious disease consult, Dr. Post - Nothing by mouth after midnight on 01/11 for GUSTAVO on 01/12; resume general diet thereafter - Cardiology consult, Dr. White #. Hyponatremia. Acute. SIADH. Most likely citalopram. - Fluid restriction especially free water - monitor with fluids given #. Chronic low back pain. - Mobilize patient - Physical therapy consult - Minimal analgesics with preference for acetaminophen and nonpharmacologic measures #. Constipation. Acute. Patient reports significant increase since admission. Likely opioid analgesic effect with hospital bedrest. - Aggressive bowel regimen - Mobilize patient - Minimize opioid analgesics #. Chronic Atrial Fibrillation on Coumadin with supra therapeutic INR. No evidence of bleeding noted - Continue with home diltiazem 120mg daily for rate control - holding warfarin for now, pharmacy to dose Resolving, stable and/or chronic problems: #. Hypertension, Chronic - Continue home Losartan 50mg daily #. Coronary artery disease s/p CABG. No anginal symptoms at this time - continuing Aspirin and Rosuvastatin or equivalent - Acetaminophen as needed for mild pain/fever/headache - Bowel regimen as needed - Antiemetic as needed Patient admitted under inpatient status with expected length of stay > 2 midnights for severity of present symptoms, complexities of treatment plan and risk for adverse event . Pain Evaluation: Adequate Pain Control GI Prophylaxis: Not indicated VTE Prophylaxis: Theraputic Anticoag with Warfarin Resuscitation Status: CPR: Attempt Resuscitation Time spent 35 minutes Erwin Gilbert MD Jan 11, 2017 15:06
[2017-01-11] MEDS ORDERED: Polyethylene Glycol (PEG) 17 Gm Powder PO PRN (15:25)
[2017-01-11] MEDS: 0.9% Sodium Chloride 1,000 ML IV SCH ×2 (16:01→23:58)
--- NOTE | 2017-01-11 17:44 | NUR ---
GUSTAVO discussion/bowel care Patient understands he will be doing the GUSTAVO procedure tomorrow morning. His son, the MD and this RN discussed this with him. Consent form was signed with this RN as a witness. Pt understands he will be NPO after midnight and then will have fluids running. Pt was given 2 senna and a miralax packet today for bowel care. Pt has been uncomfortable and abdomen has been distended. Pt was able to have one small BM so far.
[2017-01-11] MEDS: Sodium Chloride LOK Flush 10 mL Syringe IVFLUSH SCH ×2 (17:52→23:58)
--- NOTE | 2017-01-11 20:15 | CONS ---
[address] [address] CONSULTATION REPORT PATIENT: ANCA ZUNIGA : 1930 MR#: [id number] ADMIT: 01/10/2017 JOB ID: [id number] DATE OF SERVICE: 01/11/2017 CARDIOLOGY CONSULTATION NOTE--INITIAL INPATIENT EVALUATION: DATE OF EVALUATION: Wednesday, January 11, 2017. CONSULTING PHYSICIAN: Cardiology-- Torres Leary MD. PROBLEMS: 1. Bacteremia: a. Blood culture positive--four out of four bottles positive on admission; gram-positive cocci (speciation pending). b. Recent past positive blood culture--October 2016; Strep mitis bacteremia documented; treated with outpatient oral Levaquin 500 mg p.o. daily for 12 days. c. No other infectious etiology evident. d. Fever--question of fever; history of recent drenching night sweats. 2. CORONARY ARTERY DISEASE (CAD): a. CAB (coronary artery bypass)--done in [place] in 2009; no details available (said to be "CABG x5"); no prior interventional procedures; no postoperative catheterization or interventional procedures; and initial diagnosis made after "syncope on a routine treadmill," without history of myocardial infarction or chest pain. 3. Atrial fibrillation: a. Controlled ventricular rate on diltiazem chronically; and generally paced rate this admission. b. CHADS score at least 4(age 1; vascular disease; hypertension; and mild LV dysfunction). c. Anticoagulation with Coumadin--supratherapeutic on admission with maximum INR 5.19 on January 10. mom and the next. 4. Aortic valve replacement: a. Bioprosthetic; concomitant with CAB in 2009. CAD RISK FACTORS: History of hypertension. History of hyperlipidemia. No history of smoking (pipe smoking remotely). No history of diabetes. FAMILY HISTORY: Noncontributory regarding premature coronary disease. OTHER PROBLEMS: 1. Altered mental status; and severe low back pain--admitting diagnosis on presenting to emergency department, January 10, 2017. 2. Admitted with syncope--November 2016; witnessed loss of consciousness in emergency department; and pacemaker check unremarkable; and myocardial perfusion scan that admission without ischemia. 3. Admitted October 2016--low back pain after a mechanical fall without syncope; and Strep mitis bacteremia documented. 4. Anemia--note progressive severe anemia since September 2016 with hemoglobin 12-13; now 7.9-9. 5. Prostate cancer--radiation therapy and felt to be inactive. 6. Permanent pacemaker: Bradycardia with syncope with dual-chamber pacemaker in 2013, said to have Mobitz II heart block. CHIEF COMPLAINT: Consulted for TE echo. HISTORY OF PRESENT ILLNESS: I am glad to meet this 86-year-old man now admitted on the PCU unit. He and his son, who is present, both gave me the history. He was admitted this time when his and daughter noted him to have altered mental status with weakness and confusion and lethargy. As noted above, he has had serial medical problems since September 2016 when he sustained a fall. He describes that he was bending down in his garage to open a drawer. When the drawer came open, he fell backwards from squatting position and hurt his back. He did not have back discomfort prior to that and now has had progressive low back discomfort that he attributes to that fall since then. He was then again admitted October 29 with confusion and low back pain. It was on that admission that two blood cultures were positive for Strep mitis. He received treatment as an outpatient after discharge. He was then again admitted with the episode of syncope on November 21. Blood cultures were negative after five days on that admission. He was seen by the oncologist, December 10 in followup to his prostate cancer, and because there had been some question of bone lesions, he was not felt to have active prostate cancer metastases. CARDIAC HISTORY: The patient and his son tell me that he has generally done very well despite his advanced age, until his fall and onset of back pain in September. 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 In general he is active around his house, drives, carries groceries, laundry, and garbage. He has a ramp that he walks up to his house. He clearly denies any anginal symptoms or chronic dyspnea or effort limitation or effort-related symptoms. Regarding heart failure, he has no other symptoms such as nocturnal dyspnea or edema. Regarding possible arrhythmia, he has no history of arrhythmia other than his atrial fibrillation and heart block leading to pacemaker; he has no current arrhythmic symptoms or symptoms at the time of his syncope such as tachy palpitation, presyncope or syncope otherwise. Regarding other possible vascular disease, he has no history of CVA or current symptoms of TIA. No claudication. Regarding possible dual-antiplatelet therapy and his anemia, he has no current bleeding symptoms other than easy bruising that he attributes to his anticoagulation. He has no upcoming planned surgery; he is reliable to take mandatory medicines if needed. ALLERGIES: The record indicates: 1. HYDROMORPHONE. 2. LISINOPRIL. MEDICATIONS: Home medicines reported to be: 1. Diltiazem (Cartia XT) 120 mg extended release daily. 2. Celexa 10 mg daily. 3. CoQ10 100 mg daily. 4. Fish oil 1000 mg daily. 5. Losartan 50 mg daily. 6. ASA 81 mg daily. 7. Multivitamin daily. 8. Rosuvastatin 5 mg daily. 9. Warfarin 5 mg daily; and 2.5 mg on Wednesday; and as adjusted. PAST MEDICAL HISTORY: See problem list above. REVIEW OF SYSTEMS: I questioned him and his son about a 13-point review of systems which is unremarkable, noncontributory, or negative except as noted including: Constitutional--He reports his weight is steady at 160 pounds, but the record indicates there may be some weight loss. He claims appetite is good. No history of thyroid disorder. No history of pulmonary disorder. GI symptoms include mild indigestion after coffee, now inactive on coffee abstinence; and no history of early satiety or dysphagia. PERSONAL/SOCIAL HISTORY: Cigarettes--He smoked a pipe only and stopped in the remote past. Alcohol--He drinks occasionally; but reported to be limited amounts. Family--He lives with his , who was recently in the emergency department with very high blood pressure; and he has family locally including son, who is present, and a daughter. 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 FAMILY HISTORY: Noncontributory. PHYSICAL EXAMINATION: General appearance: A pleasant, alert, elderly, thin, frail man who appears somewhat cachectic. VITAL SIGNS: Blood pressure 120/61, with heart rate 60, regular. Afebrile 36.7; and not febrile from the emergency department through the hospital admission. Respiratory rate 18 and unlabored. SpO2 97% on room air. Weight 77 kg on admission; and 72.3 kg now. Weight was 76.4 kg October 03 during prior admission. NEUROLOGIC AND MENTAL STATUS: No overt focal neurologic defect noted. He is alert, oriented, appropriate, and conversant now. HEENT: PERRL. Conjunctivae pale. Sclerae not icteric. Mouth and mucous membranes intact with his own teeth in good repair. NECK: Carotid upstroke intact bilaterally without bruit. Jugular venous pressure normal, 8 cm water. No palpable thyromegaly. No palpable cervical lymphadenopathy. LUNGS: Clear to auscultation bilaterally. CARDIAC: Note median sternotomy scar. Cardiac examination notable for regular rhythm with a moderately harsh long but mid peaking systolic ejection murmur at the base radiating to the neck, consistent with his aortic valve replacement functioning appropriately; and not impressive for severe aortic stenosis. No aortic regurgitation heard. No mitral regurgitation heard. No murmur typical of tricuspid regurgitation heard. ABDOMEN: Protuberant abdomen with otherwise unremarkable examination without tenderness, mass, hepatosplenomegaly, or bruit of abdominal aortic aneurysm. EXTREMITIES: No edema. Loss of muscle mass. Pedal pulses difficult to feel bilaterally. DIAGNOSTIC STUDIES: ELECTROCARDIOGRAM: The electrocardiogram shows sinus rhythm at 66 BPM with left atrial abnormality and consistent with AV synchronous DDDR-V transvenous pacer. Also note PVCs. CHEST X-RAY: On admission, January 09, 2017, shows median sternotomy wires and two=lead pacemaker with intact leads as well as cardiomegaly and some pulmonary venous hypertension consistent with some degree of heart failure. RADIOLOGY: Note, brain CT and lumbar spine CT unremarkable except for evidence of advanced spine osteoarthritis. LABORATORY: CBC includes WBC 8200 with hemoglobin 9.2 (now falling to 7.9); and hematocrit 29.2, with normal indices and platelet count 309,000. Urinalysis includes 3-10 RBC and 0-5 WBC. INR 4.97 on admission, rising to 5.19; and today, 3.29 on January 11. CHEMISTRIES: Include sodium low, 129, with potassium 5.2, creatinine 0.99, glucose 115. Magnesium 2.2. Liver function tests unremarkable. Cardiac markers include single troponin less than 0.010; and markedly elevated BNP 2836. Procalcitonin 0.18 (elevated). ECHOCARDIOGRAM: I reviewed the images of the transthoracic echocardiogram done today. He has normal left ventricular size with borderline left ventricular systolic function with estimated ejection fraction 50% to 60% (reported 55% to 60%). The aortic valve appears intact and the images actually showed the leaflets reasonably well. No evident vegetation, no aortic regurgitation. Mean gradient 29 with peak gradient 40. No other vegetations seen on good transthoracic views of the mitral and tricuspid valve. EE not elevated, 11.6. Estimated pulmonary hypertension with PASP 44. ASSESSMENT: I discussed the findings, impressions and management considerations with the patient and his son; as well as with the hospitalist staff; and with Cardiology includin. Bacteremia with high risk for endocarditis: He has documented ongoing or recurrent bacteremia with gram-positive cocci, pending speciation. He had documented Strep mitis bacteremia as far back as early October 2016; and had a course of 12 days of oral Levaquin in the interim. There is a high risk for endocarditis in the face of his bioprosthetic aortic valve and right-sided pacemaker. No obvious intracardiac infection is evident on transthoracic echo. He has low back pain although this has been attributed to osteoarthritis and his recent fall and no bone infection was seen by CT (MRI deferred due to pacemaker). A transesophageal echo in this setting may help diagnostically. 2. CAD--This is clinically stable. 3. Note concern for systemic disease given his frailty, possible weight loss, and progressive anemia. This could be consistent with endocarditis or other systemic diagnoses. RECOMMENDATIONS: 1. Transesophageal echo--discussed with the patient and his son; and informed consent signed; and planned for 9 a.m., WednesdayJanuary 12 in [facility]. 2. Monitor coronary status--records of his CAB in 2009 are requested. 3. Antibiotic treatment--your plan, including ID consultation; and anticipate prolonged intravenous antibiotic regimen. 4. Estimated sed rate. 5. Your plan to evaluate any other underlying causes of his anemia, possible weight loss, protuberant belly. 6. Abdominal ultrasound (rule out ascites). 7. OMT--ongoing guideline directed optimal medical therapy for his coronary disease and atrial fibrillation including aspirin, statin, Coumadin. He is on a stable regimen but might consider changing diltiazem to beta-jose.
[2017-01-12] VITALS (12 sets, daily range): BP systolic 102–159; BP diastolic 42–70; PULSE 60–80; RESP 15–20; O2SAT 94–99
[2017-01-12] MEDS: Vancomycin Inj 1,500 MG in 0.9% Sodium Chloride 500 ML IV SCH (04:23)
[2017-01-12] MEDS ORDERED: Vancomycin Serum Trough XX ONE (04:30)
[2017-01-12 04:48] LABS: INR 2.34 ratio
--- NOTE | 2017-01-12 05:19 | NUR ---
NPO Pt NPO at midnight per procedure in AM; pt compliant with care plan. NS 100ml/hr initiated at 0000. Pt denies pain, but significantly stiff and limited with movements. VSS, tele paced 60s-70s.
[2017-01-12] MEDS: Vancomycin Dose per Pharmacist XX SCH (08:30)
[2017-01-12] MEDS: Sodium Chloride LOK Flush 10 mL Syringe IVFLUSH SCH ×3 (08:30→20:32)
[2017-01-12] MEDS: cefTRIAXone Inj 2,000 MG in Dextrose 5% Minibag Plus 50 ML IV SCH (09:41)
[2017-01-12] MEDS ORDERED: Flumazenil 0.1 mg/mL 5 mL Inj IV ONE (10:31)
--- NOTE | 2017-01-12 10:40 | PCM.PHAPRO ---
Progress Date of Service: Jan 12, 2017 Warfarin: This patient has a history significant for CAD, CABG x5, pacemaker placement , prosthetic AVR 2014, prostate cancer, HTN, HLD, and [facility] takes warfarin 5 mg daily at home, but it is unclear what dose the patient is actually taking Other than antibiotics, no significant drug interactions noted with his current medications or what he takes at home per med rec Date Jan 10-Jan 11-Jan 12-Dec INR 4.97 5.19 3.29 2.34 INR change ~ 0.22 -1.9 -0.95 Warf Dose UNK HOLD HOLD 2.5 Now that INR is back to therapeutic will give a OT dose of 2.5 mg per protocol and continue to dose based on daily INRs Pharmacy to follow INR daily and determine dosing THANKS! Roxane Draper PharmD Jan 12, 2017 10:40
--- NOTE | 2017-01-12 10:55 | NUR ---
to [facility] for procedure Pt received IV vanco and IV ceftriaxone this AM before leaving for procedure. Right arm IV in place. Pt voided and had a small BM prior to leaving. Pt was escorted in a wheelchair by staff member with the chart down to [facility] around 1100.
--- NOTE | 2017-01-12 11:10 | NUR ---
SEE SEDATION FLOW SHEET
--- NOTE | 2017-01-12 11:10 | NUR ---
TRANSFER NOTE FROM [facility], SEE FLOW SHEET
[2017-01-12] MEDS ORDERED: fentaNYL-PF 50 mCg/mL 2 mL Inj ONE (11:20)
[2017-01-12] MEDS ORDERED: Benzoc-Butamben-Tetraca Spray 20 Gm Spray TOPICAL PRN (11:35)
[2017-01-12] MEDS: 0.9% Sodium Chloride 1,000 ML IV SCH ×2 (12:01→20:32)
--- NOTE | 2017-01-12 12:10 | NUR ---
PROCEDURE COMPLETE. SEE EMR
--- NOTE | 2017-01-12 13:51 | DRSVH ---
[facility] [address] [place] [address] Echocardiogram Report Name: ANCA ZUNIGA EStudy Date: 01/12/2017 Nahid t: 69 in Hospital Exam Location: [facility] Weigh t: 159 lb Gender: Male BSA: 1.9 m2 : 1930 Age: 86 yrs BP: 1 55/74 mmHg Reason For Study: DYSRHYTHMIA, SEPSIS, AVR Ordering Physician: Torres Leary Performed By: Aure David Referring Physician: DR. SANDOVAL, DR. Ralph WHITE Interpretation Summary The left ventricular ejection fraction is grossly normal. There is a pacemaker lead in the right ventricle. The left atrium is moderately dilated. No thrombus is detected in the left atrial appendage. There is no Doppler evidence for an atrial septal defect. There is mild mitral regurgitation. There is a bioprosthetic aortic valve. The prosthetic aortic valve is well-seated. No aortic regurgitation is present. There is no tricuspid valve vegetation. There is mild tricuspid regurgitation. No evidence of endocarditis on this exam Procedure: Informed consent for Transesophageal Echocardiogram, and use of a contrast agent as needed, was obtained prior to the procedure. The patient was brought to the [facility] in a fasting state. IV concious sedation was administered using versed and fentanyl. The transesophageal probe was passed without difficulty. The patient's vital signs, including blood pressure, heart rate, pulse oximetry and cardiac rhythm were monitored throughout the procedure and remained stable. A 2D transesophageal echocardiogram with spectral and color flow Doppler was performed. The usual views were obtained; basal, mid-esophageal, transgastric and aortic views. The patient tolerated the procedure well without evidence of orophangeal or esophageal trauma. The patient has a paced rhythm. There were no complications. Left Ventricle: The left ventricular ejection fraction is grossly normal. Septal hypokinesis. Right Ventricle: The right ventricle is normal in size and function. There is a pacemaker lead in the right ventricle. Atria: The left atrium is moderately dilated. No thrombus is detected in the left atrial appendage. There is no Doppler evidence for an atrial septal defect. Mitral Valve: The mitral valve leaflets appear normal. There is no evidence of stenosis, fluttering, or prolapse. There is no vegetation seen on the mitral valve. There is mild mitral regurgitation. Aortic Valve: The aortic valve opens well. The aortic valve is slightly calcified. There is a bioprosthetic aortic valve. The prosthetic aortic valve is well-seated. No aortic regurgitation is present. Tricuspid Valve: The tricusid valve is mildly thickened, but opens well. There is no tricuspid valve vegetation. There is mild tricuspid regurgitation. Pulmonic Valve: The pulmonic valve is not well visualized. Pericardium/ Pleura: There is no pericardial effusion. Electronically signed by: Leobardo White on Reading Physician:01/12/2017 01:50 PM
--- NOTE | 2017-01-12 16:13 | NUR ---
Social Work Note: Continued Discharge Planning Data& Assessment: Per [facility], pt may require 6 weeks of IV abx at time of discharge. SW provided pt and pt family with SNF/Home Infusion list for preferences. Pt family will think about preferences. Pt and pt family denies any other needs at this time. SW to continue to follow. Plan: Anticipated discharge to SNF vs. Home with home infusion for 6 weeks of IV abx. SNF/Home infusion list provided. SW to follow up regarding preferences. SW to continue to follow. ALFA Rayo
--- NOTE | 2017-01-12 17:19 | PCM.PNMED ---
Subjective Date of Service Jan 12, 2017 Subjective 86 y/o male with history of CAD, dual-chamber pacemaker, bioprosthetic aortic valve 2013, HTN, A-fib on warfarin, prostate CA in remission presented due to altered mental status with history of night sweats, worsened back pain, anorexia and weight loss. Mental status normal. Reports no further night sweats since admission. Appetite is moderate. Exam Vital Signs Vital Sign - Last Date Time Temp Pulse Resp B/P Pulse Ox O2 Delivery O2 Flow Rate FiO2 01/12/17 13:00 60 15 107/53 95 Room Air 01/12/17 12:15 2.00 01/12/17 07:30 36.9 Intake and Output 01/11/17 01/11/17 01/12/17 Cumulative From/Thru 15:00 23:00 07:00 01/09/17 22:24 - 01/12/17 06:07 Intake Total 200 ml 840 ml 1152 ml 4948 ml Output Total 850 ml 1450 ml 1700 ml 6950 ml Balance -650 ml -610 ml -548 ml -2002 ml Intake Oral 200 ml 740 ml 200 ml 1390 ml IV Total 100 ml 952 ml 3558 ml Output Urine Total 850 ml 1450 ml 1700 ml 6950 ml # Bowel Movements 0 0 Exam General: Healthy-appearing elderly man in no acute distress HEENT: sclerae anicteric, oral mucosa moist Neck: no JVD Chest: clear to auscultation, pacer left upper anterior chest is nontender Cardiac: S1S2, paradoxical splitting, II/ systolic murmur at RUSB with carotid radiation, also II/ apical Abdomen: BS normal, protuberant but soft and non-tender, no splenomegaly Extremities: 2-3 narrow splinters, No edema Neuro: A&O, cranial nerves symmetric, motor strength & coordination normal IVs and Medications Medications Reviewed: Medications were reviewed in detail Lab and Diagnostics Result Diagram: 01/11/17 0445 01/12/17 0430 X-Rays, CTs and MRIs PROCEDURE: X-RAY CHEST ONE VIEW, PORTABLE ([id number]) IMPRESSION: No acute cardiopulmonary disease process. Dictated by: Almita Ace MD, PhD on 01/10/2017 at 9:10 PROCEDURE: CT BRAIN WITHOUT CONTRAST ([id number]) IMPRESSION: No acute intracranial disease process. Dictated by: Almita Ace MD, PhD on 01/10/2017 at 7:50 PROCEDURE: CT LUMBAR SPINE WITH CONTRAST ([id number]) IMPRESSION: No abscess identified by CT imaging. Dictated by: Almita Ace MD, PhD on 01/10/2017 at 8:08 . 12-lead ECG EKG 01/09/17 at 23:04 and HR 84, atrial sensed ventricular paced rhythm with PVC Cardiac Echo Impressions Echocardiogram Report Name: ANCA ZUNIGA Study Date: 01/11/2017 Interpretation Summary The left ventricle is normal in size. There is mild concentric left ventricular hypertrophy. Left ventricular systolic function is normal. The ejection fraction is estimated to be 55-60%. Compared to the prior exam, left ventricular function is borderline improved. Apical wall motion abnormality may reflect pacemaker activation. There is apical septal wall hypokinesis. Compared to the prior exam, the left ventricular wall motion has not changed. The right ventricle is normal in size and function. There is a pacemaker lead in the right ventricle. The right ventricular systolic pressure is estimated at 44 mmHg assuming a right atrial pressure of 3 mm Hg. The left atrium is moderately dilated. The right atrium is severely dilated. There is a bioprosthetic aortic valve. The prosthetic aortic valve is well- seated. The peak aortic velocity is 3.3 m/sec. The peak aortic velocity on the previous exam was 2.6 m/sec. The aortic valve mean gradient is 29 mmHg. There is no obvious valvular vegetation identified on this exam. Consider GUSTAVO if there is a high degree of clinical suspicion for endocarditis and clinically appropriate. The ascending aorta is mildly enlarged. . Additional Diagnostics Echocardiogram Report Name: ANCA ZUNIGA Study Date: 01/12/2017 Interpretation Summary The left ventricular ejection fraction is grossly normal. There is a pacemaker lead in the right ventricle. The left atrium is moderately dilated. No thrombus is detected in the left atrial appendage. There is no Doppler evidence for an atrial septal defect. There is mild mitral regurgitation. There is a bioprosthetic aortic valve. The prosthetic aortic valve is well-seated. No aortic regurgitation is present. There is no tricuspid valve vegetation. There is mild tricuspid regurgitation. No evidence of endocarditis on this exam . Assessment & Plan Acute and actively manage problems: #. Fever due to Possible Endocarditis. Present on admission Patient has a Previous history of Strep mitis bacteria on unclear source or significance. His symptoms clearly predates his recent dental procedure, for which he received antibiotic prophylaxis. Blood cultures positive x 12/22 suggesting endovascular involvement. First full day of antibiotics was 01/10. Cardiac imaging is negative so far, including GUSTAVO. Definitive identification of Streptococcus and blood is pending. Discontinued Cefepime and Gentamicin IV after 1 day. - Continue to monitor on telemetry - Ceftriaxone, also continuing Vancomycin at present - Infectious disease consult following, Dr. Post - Cardiology consult, Dr. Leary #. Chronic low back pain. Vertebral abscess is plausible with acute on chronic back pain, but CT scan is negative. MRI not possible due to cardiac pacemaker. - Mobilize patient - Physical therapy consult - Minimal analgesics with preference for acetaminophen and nonpharmacologic measures #. Constipation. Acute. Patient reports significant increase since admission. Likely opioid analgesic effect with hospital bedrest. Now improving with Aggressive bowel regimen - Mobilize patient - Minimize opioid analgesics #. Chronic Atrial Fibrillation on Coumadin with supra therapeutic INR. - So far he has not needed his usual diltiazem 120mg daily for rate control; will initiate if heart rate picks up - holding warfarin for now, pharmacy to dose and INR is in range Resolving, stable and/or chronic problems: #. Hyponatremia. Acute. SIADH. Most likely citalopram. Now resolving after 3 days citalopram. - Fluid restriction especially free water - Monitor BMP as needed #. Acute Encephalopathy. Present on admission. Metabolic encephalopathy due to systemic infection.CT head showed no bleeding - Resolved - avoid psychoactive medications such as a cholinergic and benzodiazepines #. Hypertension, Chronic - Continue home Losartan 50mg daily #. Coronary artery disease s/p CABG. No anginal symptoms at this time - continuing Aspirin and Rosuvastatin or equivalent - Acetaminophen as needed for mild pain/fever/headache - Bowel regimen as needed - Antiemetic as needed Discharge planning: Patient of inpatient antibiotics before transitioning to PICC line outpatient antibiotic therapy is not clear at present. [place] disease consult to drive this. Anticipate either home infusion or outpatient infusion therapy to complete 6 weeks. . GI Prophylaxis: Not indicated VTE Prophylaxis: Theraputic Anticoag with Warfarin Resuscitation Status: CPR: Attempt Resuscitation Time spent 40 minutes spent in patient assessment in care coordination including review of data with consultants Erwin Gilbert MD Jan 12, 2017 13:37
--- NOTE | 2017-01-12 20:04 | PROG NOTE ---
[address] [address] PROGRESS NOTE PATIENT: ANCA ZUNIGA : 1930 MR#: [id number] ADMIT: 01/10/2017 JOB ID: [id number] INFECTIOUS DISEASES FOLLOW UP NOTE: DATE: 01/12/2017 REASON FOR FOLLOWUP: High-grade and prolonged strep mitis bacteremia. INTERVAL HISTORY: Recall this is the 86-year-old gentleman who was here in October with some fevers and sweats and had multiple positive blood cultures for strep mitis. These were never properly addressed though he did receive a course of levofloxacin subsequent to that admission. Some followup blood cultures in early November did not grow, but they came on the heels of a 12-day course of levofloxacin. In any event, the patient is now readmitted and is found to have a very high-grade strep mitis bacteremia. Today, the patient reports he is feeling better. He denies fevers, chills, headache, sore throat, chest pain, or cough. He still has a diffuse bandlike lower back pain which encircles his trunk. He does not have any weakness in his lower extremities, however, and no bowel or bladder symptoms. PHYSICAL EXAMINATION: Reveals an afebrile gentleman. Temp 36.8, pulse 63, respiratory rate 17, blood pressure 105/55, saturating well on room air. He is in no acute distress. His conjunctivae are without hemorrhage. His oral cavity without palatal petechia. His lungs are clear. Cardiac tones: Regular rate and rhythm with a 2/6 systolic murmur. He has a pacer in his left upper chest which is benign. His abdomen is soft and nontender. He does not have peripheral stigmata of endocarditis such as Janeway lesions, Osler lesions, or splinter hemorrhages on his hands. LABORATORIES: Labs include white count 7900, platelet count 273, normal difficulty. Creatinine 0.99. LFTs normal. Urinalysis: 0-5 white cells. Micro studies include basically 8 of 8 blood cultures now growing what appears to be strep Midas with final identification expected tomorrow. There were four positive blood cultures on the , and four on the . The lumbar spine CT failed to show any abscess or osteomyelitis. Today's transesophageal echocardiogram was done by Dr. White. It shows no evidence of endocarditis and the bioprosthetic aortic valve was well seated and without evident vegetation. A pacer lead was seen in the right ventricle and did not have any vegetation on it that was noted. IMPRESSION: I believe that on clinical criteria the patient does have endocarditis. Using Manriquez criteria, he has possible endocarditis because he has one major criteria, the presence of strep mitis and many positive blood cultures over a period of months, but he does not have any vegetations seen on echo. For minor criteria, he has the predisposing factor which is a bioprosthetic valve as well as fever, but he does not have any peripheral manifestations of endocarditis. Nonetheless, given his amazingly long duration of bacteremia, I think we have no other recourse but to treat for six weeks. RECOMMENDATIONS: 1. We await the full susceptibilities on the strep mitis. 2. If the strep mitis has a good penicillin ANGÉLICA, we can treat with ceftriaxone 2 g IV q.24 h. for six weeks. 3. Repeat blood cultures will be done today. 4. This situation discussed with the patient and his extended family.
[2017-01-12] MEDS: Vancomycin/250 mL NS IV SCH ×2 (20:32)
[2017-01-13 02:56] VITALS: BP 118/62; PULSE 63; RESP 20; O2SAT 95
[2017-01-13] MEDS ORDERED: Gentamicin Serum Trough XX ONE (04:30)
--- NOTE | 2017-01-13 05:02 | NUR ---
Mobility Pt SBA-IND in room, tolerates well; uses urinal independently. HS ABX given. VSS, tele paced 70s. No acute complaints. Pt able to rest throughout shift.
[2017-01-13 05:26] LABS: INR 2.21 ratio
[2017-01-13] MEDS ORDERED: Gentamicin Serum Peak XX ONE (06:00)
[2017-01-13] MEDS: 0.9% Sodium Chloride 1,000 ML IV SCH ×3 (08:01→23:12)
[2017-01-13 08:30] VITALS: BP 96/44; PULSE 64; RESP 18; O2SAT 94
[2017-01-13] MEDS: Vancomycin/250 mL NS IV SCH ×2 (08:41)
[2017-01-13] MEDS: Sodium Chloride LOK Flush 10 mL Syringe IVFLUSH SCH ×2 (08:46→17:08)
[2017-01-13] MEDS: Vancomycin Dose per Pharmacist XX SCH (08:46)
--- NOTE | 2017-01-13 09:33 | PROG NOTE ---
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 INTERVAL HISTORY: The patient feels well this morning. He reports his back pain is improved. He has no myalgias, arthralgias, fevers, chills. or sweats. No significant cough, shortness of breath, nausea, vomiting, or diarrhea. Tolerating his antibiotics well. PHYSICAL EXAMINATION: Reveals an afebrile gentleman, temperature 36.9, pulse 64, respiratory rate 18, blood pressure 96/44. He is in no acute distress. Eyes without conjunctival hemorrhages. Oral cavity negative. Lungs fairly clear posteriorly. Cardiac tones: A 2/6 murmur as previously heard. He has a pacer present in the left upper chest. It feels benign. Abdomen: Negative. No skin rash. Has reasonable range of motion of his back today. LABORATORIES: Include a white count last done two days ago 7900. Creatinine yesterday 0.99. Micro studies are concerning. We have the multiple positive blood cultures for Strep mitis from January 09 and January 10. The followups from yesterday are negative but, of course, these are not mature blood cultures at this point. Recall that this gentleman had the same organism present in blood cultures back in October which was not treated with a sufficiently long course of antibiotics. The patient's transesophageal echo was done yesterday. It did not show evidence of endocarditis nor did it show infection of the pacer lead. Recall that he does have a bioprosthetic aortic valve. IMPRESSION: By Manriquez criteria, this patient has possible endocarditis. 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 The treatment for this, given the fact it is a prosthetic valve, would be six full weeks of ceftriaxone or penicillin. Because it is simpler to use ceftriaxone, will go ahead and utilize that in this case. I would not add gentamicin in this case, given the patient's age and the fact we do not have definitive proof of endocarditis and the aminoglycoside would certainly add a level of toxicity which may prove to be unacceptable. RECOMMENDATIONS: 1. We await negative blood cultures. When his blood cultures are negative for at least two days, we can insert a PICC line and prepare the patient for discharge. 2. His antibiotic should continue for 42 days, and we will use yesterday as our starting date. So, 42 days from January 12 takes us to February 23. February 22 would be our last day of our six weeks of therapy. 3. The patient hopes to receive his IV antibiotics at home, and I have written orders for the land planner to start to work on this. Hopefully, he can receive the 2 g per day of ceftriaxone on an ongoing basis at his home but if not, a fail safe backup might be for him to come to the [facility] daily but he expresses the idea this would be quite difficult, given his age and in various infirmities for him to make it every day to the [facility]. Obviously, we would prefer the patient not to go to a nursing home facility just to receive a once a day nontoxic antibiotic. 4. I will be out of town the next six days, returning to work on the morning of January 20. I can be reached at any time with questions about this or any other patient by text message or by e-mail but probably not by telephone. 5. I would like to see this patient in my clinic January 27, and I have given him a card and indicated that.
[2017-01-13] MEDS: cefTRIAXone Inj 2,000 MG in Dextrose 5% Minibag Plus 50 ML IV SCH (10:13)
[2017-01-13 10:37] VITALS: PULSE 60
--- NOTE | 2017-01-13 13:03 | PCM.PNMED ---
Subjective Date of Service Jan 13, 2017 Subjective No chest pain, cough, shortness of breath, fever, or diaphoresis. No night sweats. No nausea or abdominal pain. Exam Vital Signs Vital Sign - Last Date Time Temp Pulse Resp B/P Pulse Ox O2 Delivery O2 Flow Rate FiO2 01/13/17 10:37 60 01/13/17 08:30 36.9 18 96/44 94 Room Air 01/12/17 12:15 2.00 Intake and Output 01/12/17 01/12/17 01/13/17 Cumulative From/Thru 15:00 23:00 07:00 01/09/17 22:24 - 01/13/17 05:07 Intake Total 750 ml 1080 ml 6778 ml Output Total 2200 ml 800 ml 9950 ml Balance -1450 ml 280 ml -3172 ml Intake Oral 400 ml 800 ml 2590 ml IV Total 350 ml 280 ml 4188 ml Output Urine Total 2200 ml 800 ml 9950 ml # Bowel Movements 0 0 Exam Alert and oriented -3, no distress. Fluent speech Anicteric sclera. Lungs are clear with normal rate and effort Heart is regular with 3/6 Systolic murmur. No gallop or rub Abdomen soft nontender, flat Extremities are free of edema. Skin is free of rash or lesions. Lab and Diagnostics Result Diagram: 01/11/17 0445 01/12/17 0430 X-Rays, CTs and MRIs PROCEDURE: X-RAY CHEST ONE VIEW, PORTABLE ([id number]) IMPRESSION: No acute cardiopulmonary disease process. Dictated by: Almita Ace MD, PhD on 01/10/2017 at 9:10 PROCEDURE: CT BRAIN WITHOUT CONTRAST ([id number]) IMPRESSION: No acute intracranial disease process. Dictated by: Almita Ace MD, PhD on 01/10/2017 at 7:50 PROCEDURE: CT LUMBAR SPINE WITH CONTRAST ([id number]) IMPRESSION: No abscess identified by CT imaging. Dictated by: Almita Ace MD, PhD on 01/10/2017 at 8:08 . 12-lead ECG EKG 01/09/17 at 23:04 and HR 84, atrial sensed ventricular paced rhythm with PVC Cardiac Echo Impressions Echocardiogram Report Name: ANCA ZUNIGA Study Date: 01/11/2017 Interpretation Summary The left ventricle is normal in size. There is mild concentric left ventricular hypertrophy. Left ventricular systolic function is normal. The ejection fraction is estimated to be 55-60%. Compared to the prior exam, left ventricular function is borderline improved. Apical wall motion abnormality may reflect pacemaker activation. There is apical septal wall hypokinesis. Compared to the prior exam, the left ventricular wall motion has not changed. The right ventricle is normal in size and function. There is a pacemaker lead in the right ventricle. The right ventricular systolic pressure is estimated at 44 mmHg assuming a right atrial pressure of 3 mm Hg. The left atrium is moderately dilated. The right atrium is severely dilated. There is a bioprosthetic aortic valve. The prosthetic aortic valve is well- seated. The peak aortic velocity is 3.3 m/sec. The peak aortic velocity on the previous exam was 2.6 m/sec. The aortic valve mean gradient is 29 mmHg. There is no obvious valvular vegetation identified on this exam. Consider GUSTAVO if there is a high degree of clinical suspicion for endocarditis and clinically appropriate. The ascending aorta is mildly enlarged. . Additional Diagnostics Echocardiogram Report Name: ANCA ZUNIGA Study Date: 01/12/2017 Interpretation Summary The left ventricular ejection fraction is grossly normal. There is a pacemaker lead in the right ventricle. The left atrium is moderately dilated. No thrombus is detected in the left atrial appendage. There is no Doppler evidence for an atrial septal defect. There is mild mitral regurgitation. There is a bioprosthetic aortic valve. The prosthetic aortic valve is well-seated. No aortic regurgitation is present. There is no tricuspid valve vegetation. There is mild tricuspid regurgitation. No evidence of endocarditis on this exam . Assessment & Plan #. 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 His symptoms clearly predates his recent dental procedure, for which he received antibiotic prophylaxis. Blood cultures positive x 12/22 suggesting endovascular involvement. First full day of antibiotics was 01/10. Cardiac imaging is negative so far, including GUSTAVO. Definitive identification of Streptococcus and blood is pending. Discontinued Cefepime and Gentamicin IV after 1 day. - Continue to monitor on telemetry - Ceftriaxone, also continuing Vancomycin at present - Infectious disease consult following, Dr. Post - Planning for home IV antibiotics. We will discuss placement of PICC tomorrow morning with Dr. Post and anticipate the ceftriaxone will likely be the antibiotic. We are awaiting final sensitivities. \ #. Chronic low back pain. Improved. Vertebral abscess is plausible with acute on chronic back pain, but CT scan is negative. MRI not possible due to cardiac pacemaker. - Mobilize patient - Physical therapy consult - Minimal analgesics with preference for acetaminophen and nonpharmacologic measures #. Constipation. Acute. Patient reports significant increase since admission. Likely opioid analgesic effect with hospital bedrest. Now improving with Aggressive bowel regimen - Mobilize patient - Minimize opioid analgesics #. Chronic Atrial Fibrillation on Coumadin with supra therapeutic INR. - So far he has not needed his usual diltiazem 120mg daily for rate control; will initiate if heart rate picks up - holding warfarin for now, pharmacy to dose and INR is in range Warfarin per pharmacy. #. Hyponatremia. Acute. SIADH. Most likely citalopram. Resolved. - Fluid restriction especially free water - Monitor BMP as needed #. Acute Encephalopathy. Present on admission. Metabolic encephalopathy due to systemic infection.CT head showed no bleeding - Resolved - avoid psychoactive medications such as a cholinergic and benzodiazepines #. Hypertension, Chronic - Continue home Losartan 50mg daily #. Coronary artery disease s/p CABG. No anginal symptoms at this time - continuing Aspirin and Rosuvastatin or equivalent - Acetaminophen as needed for mild pain/fever/headache - Bowel regimen as needed - Antiemetic as needed Discharge planning: Anticipate discharge likely between and Wednesday with a PICC line and home IV antibiotics for total of 6 weeks. . GI Prophylaxis: Not indicated VTE Prophylaxis: Theraputic Anticoag with Warfarin Resuscitation Status: CPR: Attempt Resuscitation Hang Baum MD Jan 13, 2017 13:03 Hang Baum MD Jan 13, 2017 13:03
[2017-01-13 13:12] VITALS: BP 103/56; PULSE 70; RESP 17; O2SAT 98
--- NOTE | 2017-01-13 19:05 | NUR ---
muscle spasms Pt has complained of back pain with movement and has been receiving tramadol but today he described the pain as "sharp" "sudden" and quickly resolved. MD yarbrough paged requesting medication for muscle spasm. Info related to KRISTINA RN. Pt expressed desire to try a med for muscle spasm tonight.
[2017-01-13 20:24] VITALS: BP 100/60; PULSE 66; RESP 17; O2SAT 98
--- NOTE | 2017-01-13 21:58 | NUR ---
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 Pt denies any other concerns @ this time. Pt's vitals stable, independent in room, no other issues noted @ this time.
[2017-01-13 23:05] VITALS: BP 129/64; PULSE 65; RESP 17; O2SAT 95
[2017-01-14] MEDS: Sodium Chloride LOK Flush 10 mL Syringe IVFLUSH SCH ×3 (00:34→18:09)
[2017-01-14] MEDS ORDERED: Vancomycin Serum Trough XX ONE (08:00)
[2017-01-14 09:01] LABS: INR 1.68 ratio
[2017-01-14 10:04] VITALS: BP 101/50; PULSE 78; RESP 16; O2SAT 98
[2017-01-14] MEDS: cefTRIAXone Inj 2,000 MG in Dextrose 5% Minibag Plus 50 ML IV SCH (10:12)
[2017-01-14] MEDS ORDERED: Sodium Chloride LOK Flush 10 mL Syringe IVFLUSH PRN ×2 (11:25)
--- NOTE | 2017-01-14 11:45 | PCM.PNMED ---
Subjective Date of Service Jan 14, 2017 Subjective He is doing well. No fevers chills or night sweats. No chest pain palpitations or shortness of breath. He is having some lower back cramping. He also lower back pain from the diabetes but most of the day up in the chair today. He is understanding of the plan to place a PICC line today and discharge home tomorrow with home IV antibiotics. After 4 PM today will be his 48 hour window of sterile blood for PICC line placement. Exam Vital Signs Vital Sign - Last Date Time Temp Pulse Resp B/P Pulse Ox O2 Delivery O2 Flow Rate FiO2 01/14/17 10:04 36.8 78 16 101/50 98 Room Air 01/12/17 12:15 2.00 Intake and Output 01/13/17 01/13/17 01/14/17 Cumulative From/Thru 15:00 23:00 07:00 01/09/17 22:24 - 01/14/17 05:55 Intake Total 1065 ml 400 ml 8243 ml Output Total 1100 ml 1500 ml 56248 ml Balance -35 ml -1100 ml -4307 ml Intake Oral 800 ml 400 ml 3790 ml IV Total 265 ml 0 ml 4453 ml Output Urine Total 1100 ml 1500 ml 20747 ml # Bowel Movements 1 1 Exam Alert and oriented -3, no distress. Fluent speech Anicteric sclera. Lungs are clear with normal rate and effort Heart is regular without murmur gallop or rub Abdomen soft nontender, flat Extremities are free of edema. Skin is free of rash or lesions. Lab and Diagnostics Result Diagram: 01/11/17 0445 01/12/17 0430 X-Rays, CTs and MRIs PROCEDURE: X-RAY CHEST ONE VIEW, PORTABLE ([id number]) IMPRESSION: No acute cardiopulmonary disease process. Dictated by: Almita Ace MD, PhD on 01/10/2017 at 9:10 PROCEDURE: CT BRAIN WITHOUT CONTRAST ([id number]) IMPRESSION: No acute intracranial disease process. Dictated by: Almita Ace MD, PhD on 01/10/2017 at 7:50 PROCEDURE: CT LUMBAR SPINE WITH CONTRAST ([id number]) IMPRESSION: No abscess identified by CT imaging. Dictated by: Almita Ace MD, PhD on 01/10/2017 at 8:08 . 12-lead ECG EKG 01/09/17 at 23:04 and HR 84, atrial sensed ventricular paced rhythm with PVC Cardiac Echo Impressions Echocardiogram Report Name: ANCA ZUNIGA Study Date: 01/11/2017 Interpretation Summary The left ventricle is normal in size. There is mild concentric left ventricular hypertrophy. Left ventricular systolic function is normal. The ejection fraction is estimated to be 55-60%. Compared to the prior exam, left ventricular function is borderline improved. Apical wall motion abnormality may reflect pacemaker activation. There is apical septal wall hypokinesis. Compared to the prior exam, the left ventricular wall motion has not changed. The right ventricle is normal in size and function. There is a pacemaker lead in the right ventricle. The right ventricular systolic pressure is estimated at 44 mmHg assuming a right atrial pressure of 3 mm Hg. The left atrium is moderately dilated. The right atrium is severely dilated. There is a bioprosthetic aortic valve. The prosthetic aortic valve is well- seated. The peak aortic velocity is 3.3 m/sec. The peak aortic velocity on the previous exam was 2.6 m/sec. The aortic valve mean gradient is 29 mmHg. There is no obvious valvular vegetation identified on this exam. Consider GUSTAVO if there is a high degree of clinical suspicion for endocarditis and clinically appropriate. The ascending aorta is mildly enlarged. . Additional Diagnostics Echocardiogram Report Name: ANCA ZUNIGA Study Date: 01/12/2017 Interpretation Summary The left ventricular ejection fraction is grossly normal. There is a pacemaker lead in the right ventricle. The left atrium is moderately dilated. No thrombus is detected in the left atrial appendage. There is no Doppler evidence for an atrial septal defect. There is mild mitral regurgitation. There is a bioprosthetic aortic valve. The prosthetic aortic valve is well-seated. No aortic regurgitation is present. There is no tricuspid valve vegetation. There is mild tricuspid regurgitation. No evidence of endocarditis on this exam . Assessment & Plan Acute and actively manage problems: #. 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 His symptoms clearly predates his recent dental procedure, for which he received antibiotic prophylaxis. Blood cultures positive x 12/22 suggesting endovascular involvement. First full day of antibiotics was 01/10. Cardiac imaging is negative so far, including GUSTAVO. Definitive identification of Streptococcus and blood is pending. Discontinued Cefepime and Gentamicin IV after 1 day. - Continue to monitor on telemetry - Ceftriaxone, also continuing Vancomycin at present - Infectious disease consult following, Dr. Post - Planning for home IV antibiotics. PICC line later this evening or tomorrow morning, discharged with home IV antibiotics tomorrow. Ceftriaxone 2 g IV daily until a total of 42 days. #. Chronic low back pain. Improved. Will stay out of bed as much as possible, walking his analgesia as needed. #. Constipation. Acute. Resolved #. Chronic Atrial Fibrillation on Coumadin with supra therapeutic INR. Resolved and now stable. - So far he has not needed his usual diltiazem 120mg daily for rate control; will initiate if heart rate picks up - holding warfarin for now, pharmacy to dose and INR is in range Warfarin per pharmacy. #. Hyponatremia. Acute. SIADH. Most likely citalopram. Resolved. - Fluid restriction especially free water - Monitor BMP as needed #. Acute Encephalopathy. Present on admission. Resolved #. Hypertension, Chronic and stable - Continue home Losartan 50mg daily #. Coronary artery disease s/p CABG. chronic and stable - Acetaminophen as needed for mild pain/fever/headache - Bowel regimen as needed - Antiemetic as needed Discharge planning: Anticipate discharge Wednesday with PICC line and home IV antibiotics for a total of 42 days. . GI Prophylaxis: Not indicated VTE Prophylaxis: Theraputic Anticoag with Warfarin Resuscitation Status: CPR: Attempt Resuscitation Hang Baum MD Jan 14, 2017 11:45
--- NOTE | 2017-01-14 11:48 | NUR ---
Social Work: Readiness for Discharge D: Pt discussed in am rounds with . Pt is having a PICC line placed today and is anticipated to be ready for d/c home tomorrow. Pt has been cleared for d/c home with outpatient PT from physical therapy. MD states pt will need 6 weeks IV ABX at discharge. SOFTWARE RECRUITER met with pt and spouse at bedside. Home Infusion CHOICE LIST PROVIDED. Preference is for [facility]. SOFTWARE RECRUITER provided referral to Claudia Gabriel, Clinical Liason with [facility]. She is reviewing to determine if pt's supplement has a home infusion benefit as Medicare is primary insurance. A: Pt who is I at baseline. P: Anticipate pt to discharge home with home infusion pending insurance benefit; SOFTWARE RECRUITER to follow up with pt and spouse about discharge plan once info is received from [facility]. ALFA Hathaway Addendum: 01/14/17 at 1355 by JEWEL ASHRAF SS t/c from Claudia Gabriel with [facility]. The pt has a benefit under his Blue Cross Supplement. Pt has not yet met his deductible and will be responsible for $416 for the first week and $119/week for the remaining weeks. SOFTWARE RECRUITER spoke with the pt and his family. They understand this out of pocket expense and are willing to pay for this service. SOFTWARE RECRUITER updated [facility]. Claudia will come to speak with the pt's family at bedside to discuss services further.
--- NOTE | 2017-01-14 13:04 | PCM.PHAPRO ---
Progress WARFARIN DOSING INDICATION AFIB HOME DOSE 5MG/D Recent Dosing: Date Jan 10-Jan 11-Jan 12-Jan 13-Jan 14-Jan 15-Jan 16-Jan 17-Dec 19-January 19-January INR 4.97 5.19 3.29 2.34 2.21 1.68 Warf Dose UNK HOLD HOLD 2.5 4mg x1 5mg/d a/ Appears than warfarin tolerance has returned to baseline. p/ Resume home dose of 5mg/d. Follow INR. Yoshi Julio S Pharm D Jan 14, 2017 13:04
[2017-01-14] MEDS: 0.9% Sodium Chloride 1,000 ML IV SCH ×2 (14:01→20:23)
--- NOTE | 2017-01-14 14:21 | DRSVH ---
PROCEDURE: X-RAY PICC LINE PLACEMENT BY NURSE ([id number]) INDICATIONS: access for home IV Abx COMPARISON: None. FINDINGS: PICC was placed by the intravenous therapy team from the right side. Fluoroscopic spot fi lm demonstrates tip projected over the lower SVC. IMPRESSION: Tip of PICC projected over the medial lower SVC . Dictated by: Julio ACEVEDO Interpreted: Almita Ace MD on 01/14/2017 at 14:20 Transcribed by: JENNIFER on 01/14/2017 at 14:20 Approved by: Almita Ace MD, PhD on 01/14/2017 at 15:33
--- NOTE | 2017-01-14 14:28 | PROG NOTE ---
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 INTERVAL HISTORY: Overnight, the patient has felt reasonably well. He denies fevers, chills, or sweats. He has no shortness of breath, chest pain, nausea, vomiting, diarrhea, or skin rash. He is anticipating going home in the near future and looking forward to it. PHYSICAL EXAMINATION: Reveals an afebrile gentleman. Temperature 36.8, pulse 78, respiratory rate 16, blood pressure 101/50, saturating 98% on room air. His head is without notable abnormality. Eyes without conjunctivitis. Oral cavity without palatal petechia. Lungs fairly clear. Cardiac tones with a 2/6 harsh systolic murmur, which he has had throughout his hospital stay. His pacer is present. The left upper chest is nontender. Abdomen benign. No peripheral stigmata of endocarditis. LABORATORIES: Include a white count of 7900. Creatinine 0.99. Blood cultures were positive on the and but the blood cultures on the remain negative now at about two days' incubation. IMPRESSION: This patient continues to do well with his ceftriaxone therapy. By Manriquez criteria, this is possible endocarditis. I think it actually is endocarditis given the high grade and chronic nature of his Streptococcus mitis bacteremia. Because we do not have definitive evidence of endocarditis, and because the formal toxicity of aminoglycosides in older people, we will not add gentamicin to his ceftriaxone or rather just proceed with six weeks of ceftriaxone therapy. RECOMMENDATIONS: 1. If his blood cultures are negative tomorrow, we can consider discharge. 2. A PICC line can be inserted at any time. 3. Antibiotic should continue through February 22. 4. The patient wants to get his IV antibiotics at home through one of the home infusion companies, and I think that is reasonable as long as the insurance passes muster. If this cannot be done at home, then he could come into the [facility] every day and receive the antibiotics through his PICC line. 5. I will be out of town the next five days, returning to work on the morning of January 20. I can be reached by text or email about this or any other patient as needed during my absence.
[2017-01-14] MEDS ORDERED: HYDROcodone-APAP 5-325 mg Tablet PO PRN (15:40)
[2017-01-14 16:42] VITALS: BP 105/51; PULSE 74; RESP 20; O2SAT 97
--- NOTE | 2017-01-14 19:05 | NUR ---
Back pain/PICC No reports of chest pain/pressure/discomfort. No tele, HR 70-- patient has pacemaker. No reports of SOB/dizziness. SPO2 on RA 97%. Denies cough. Pt denies N/V/D/C. Patient reports continuous back pain/spasms, Baclofen scheduled TID administered x2, patient reports little pain relief -- MD consulted, Winnett 2 TABS Q4 PRN ordered, patient states he will try that in combo with the Baclofen tonight at 2029. Single lumen PICC in right upper arm is non tender, flushes and draws nicely -- SL.
[2017-01-14 20:21] VITALS: BP 118/61; PULSE 75; RESP 20; O2SAT 96
[2017-01-15] MEDS: Sodium Chloride LOK Flush 10 mL Syringe IVFLUSH SCH ×2 (00:30→08:30)
--- NOTE | 2017-01-15 02:52 | NUR ---
PAIN/BACK SPASMS Pt denied pain, stated that he didn't need his Monarch, but would like his Baclofen for his back spasms. Pt had an uneventful night, vitals stable. Pt requested earplugs for a restful sleep, no other issues noted at this time.
[2017-01-15 04:14] VITALS: BP 111/59; PULSE 75; RESP 20; O2SAT 94
[2017-01-15 09:55] VITALS: BP 102/58; PULSE 78; RESP 18; O2SAT 98
[2017-01-15] MEDS: 0.9% Sodium Chloride 1,000 ML IV SCH (09:59)
[2017-01-15] MEDS: cefTRIAXone Inj 2,000 MG in Dextrose 5% Minibag Plus 50 ML IV SCH (09:59)
--- NOTE | 2017-01-15 10:22 | PCM.DIMED ---
Discharge Instructions Date of Service Jan 15, 2017 Dates of Hospitalization Jan 10, 2017 at 00:41 Discharge Diagnosis Discharge Diagnosis #. Strept Mitis Endocarditis. Improving #. Chronic low back pain. Improved. #. Constipation. Improved #. Chronic Atrial Fibrillation stable #. Hyponatremia. Acute. Resolved #. Acute Encephalopathy. Resolved #. Hypertension, stable #. Coronary artery disease s/p CABG. stable. Diet Heart Healthy Activity No restrictions Patient Instructions Dr. Post on January 27 at 10 AM as scheduled. [facility] will be coordinated in your ceftriaxone 2 g once a day through February 22 Follow-up Provider: Raúl Estrada MD Follow-up with PCP in: 2 weeks Hang Baum MD Jan 15, 2017 10:22
[2017-01-15] MEDS ORDERED: CEFT2FRO2 IV (10:24)
--- NOTE | 2017-01-15 10:26 | PCM.DC.MED ---
Discharge Summary Date of Service Jan 15, 2017 Dates of Hospitalization Date of Hospital Admission Jan 10, 2017 at 00:41 Date of Discharge: Jan 15, 2017 Providers: Admitting Physician: Stanley Garcia MD Primary Care Physician: Raúl Estrada MD Attending Physician: Stanley Garcia MD Diagnosis at Time of Discharge Diagnosis at Time of Discharge #. Strept Mitis Endocarditis. Improving #. Chronic low back pain. Improved. #. Constipation. Improved #. Chronic Atrial Fibrillation stable #. Hyponatremia. Acute. Resolved #. Acute Encephalopathy. Resolved #. Hypertension, stable #. Coronary artery disease s/p CABG. stable. Consultations Infectious disease, Dr. Post Procedures XRay, CTs & MRIs PROCEDURE: X-RAY CHEST ONE VIEW, PORTABLE ([id number]) IMPRESSION: No acute cardiopulmonary disease process. Dictated by: Almita Ace MD, PhD on 01/10/2017 at 9:10 PROCEDURE: CT BRAIN WITHOUT CONTRAST ([id number]) IMPRESSION: No acute intracranial disease process. Dictated by: Almita Ace MD, PhD on 01/10/2017 at 7:50 PROCEDURE: CT LUMBAR SPINE WITH CONTRAST ([id number]) IMPRESSION: No abscess identified by CT imaging. Dictated by: Almita Ace MD, PhD on 01/10/2017 at 8:08 . ECG 12 Lead EKG 01/09/17 at 23:04 and HR 84, atrial sensed ventricular paced rhythm with PVC Cardiac Echo Impression Echocardiogram Report Name: ANCA ARGUETA Study Date: 01/11/2017 Interpretation Summary The left ventricle is normal in size. There is mild concentric left ventricular hypertrophy. Left ventricular systolic function is normal. The ejection fraction is estimated to be 55-60%. Compared to the prior exam, left ventricular function is borderline improved. Apical wall motion abnormality may reflect pacemaker activation. There is apical septal wall hypokinesis. Compared to the prior exam, the left ventricular wall motion has not changed. The right ventricle is normal in size and function. There is a pacemaker lead in the right ventricle. The right ventricular systolic pressure is estimated at 44 mmHg assuming a right atrial pressure of 3 mm Hg. The left atrium is moderately dilated. The right atrium is severely dilated. There is a bioprosthetic aortic valve. The prosthetic aortic valve is well- seated. The peak aortic velocity is 3.3 m/sec. The peak aortic velocity on the previous exam was 2.6 m/sec. The aortic valve mean gradient is 29 mmHg. There is no obvious valvular vegetation identified on this exam. Consider GUSTAVO if there is a high degree of clinical suspicion for endocarditis and clinically appropriate. The ascending aorta is mildly enlarged. . Invasive Procedures Right arm PICC line on January 14. No complications Esophageal echo on January 12: Interpretation Summary The left ventricular ejection fraction is grossly normal. There is a pacemaker lead in the right ventricle. The left atrium is moderately dilated. No thrombus is detected in the left atrial appendage. There is no Doppler evidence for an atrial septal defect. There is mild mitral regurgitation. There is a bioprosthetic aortic valve. The prosthetic aortic valve is well-seated. No aortic regurgitation is present. There is no tricuspid valve vegetation. There is mild tricuspid regurgitation. No evidence of endocarditis on this exam Other Diagnostics Echocardiogram Report Name: ANCA ARGUETA Study Date: 01/12/2017 Interpretation Summary The left ventricular ejection fraction is grossly normal. There is a pacemaker lead in the right ventricle. The left atrium is moderately dilated. No thrombus is detected in the left atrial appendage. There is no Doppler evidence for an atrial septal defect. There is mild mitral regurgitation. There is a bioprosthetic aortic valve. The prosthetic aortic valve is well-seated. No aortic regurgitation is present. There is no tricuspid valve vegetation. There is mild tricuspid regurgitation. No evidence of endocarditis on this exam . Brief History Anca Argueta is an 86 y/o male CAD s/p CABG 5 with dual-chamber pacemaker, prosthetic heart valve 2013, HTN, HLD, A-fib on warfarin, prostate CA in remission and anxiety presenting to [facility] emergency department via EMS accompanied by his and daughter due to altered mental status onset yesterday. He is usually very talkative and articulate. He now presents confused, unfocused , unable to provide any history tonight and is "distinctly different from his usual self." He was attending a yazidi conference tonight. Per patient's daughter, he has been in extreme back pain for several days. He denies vomiting , nausea, and cough. Associated symptoms include fever (subjective) and possible chills and urinary incontinence earlier today. Just started taking hydrocodone yesterday (prescribed by PCP after family called Clinic) and has not been telling his PCP how much pain he has been in. He had dental work done on (according to family two teeth were removed and had antibiotics prior to procedure). His mental status was normal yesterday as per family report. Denies any sick contacts at home or travels Of note patient was hospitalized in October 2016 for acute encephalopathy and found to have Streptococcus mitis bacteremia. Patient's discharge summary from 10/30/2016 does not mention Streptococcus mitis bacteremia however follow-up oncology note mention it. Outpatient records patient looks to be started on Levaquin 500 mg daily starting on 11/04/2016. Patient admitted 11/21/16-11/24/16 due to witnessed syncope. Workup was unremarkable including a echo that showed no changes from prior Case discussed with Dr Alonzo greco. Ct head unremarkable. Plan to obtain blood cultures then initiate broad spectrum antibiotics for suspected endocarditis Hospital Course #. 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 His symptoms clearly predates his recent dental procedure, for which he received antibiotic prophylaxis. Blood cultures positive x 12/22 suggesting endovascular involvement. First full day of antibiotics was 01/10. Cardiac imaging is negative so far, including GUSTAVO. Definitive identification of Streptococcus and blood is pending. Discontinued Cefepime and Gentamicin IV after 1 day. - Continue to monitor on telemetry - Ceftriaxone, also continuing Vancomycin at present - Infectious disease consult following, Dr. Post - Planning for home IV antibiotics. We will discuss placement of PICC tomorrow morning with Dr. Post and anticipate the ceftriaxone will likely be the antibiotic. We are awaiting final sensitivities. \\ #. Chronic low back pain. Improved. Vertebral abscess is plausible with acute on chronic back pain, but CT scan is negative. MRI not possible due to cardiac pacemaker. - Mobilize patient - Physical therapy consult - Minimal analgesics with preference for acetaminophen and nonpharmacologic measures #. Constipation. Acute. Patient reports significant increase since admission. Likely opioid analgesic effect with hospital bedrest. Now improving with Aggressive bowel regimen - Mobilize patient - Minimize opioid analgesics #. Chronic Atrial Fibrillation on Coumadin with supra therapeutic INR. - So far he has not needed his usual diltiazem 120mg daily for rate control; will initiate if heart rate picks up - holding warfarin for now, pharmacy to dose and INR is in range Warfarin per pharmacy. #. Hyponatremia. Acute. SIADH. Most likely citalopram. Resolved. - Fluid restriction especially free water - Monitor BMP as needed #. Acute Encephalopathy. Present on admission. Metabolic encephalopathy due to systemic infection.CT head showed no bleeding - Resolved - avoid psychoactive medications such as a cholinergic and benzodiazepines #. Hypertension, Chronic - Continue home Losartan 50mg daily #. Coronary artery disease s/p CABG. No anginal symptoms at this time - continuing Aspirin and Rosuvastatin or equivalent - Acetaminophen as needed for mild pain/fever/headache - Bowel regimen as needed - Antiemetic as needed Discharge planning: Anticipate discharge likely between and Wednesday with a PICC line and home IV antibiotics for total of 6 weeks. Hospital course. The patient was admitted for probable endocarditis. Multiple blood cultures, specifically 4, drawn strep mitis. The patient's last 2 cultures 4 days prior to discharge were sterile. The patient was treated with ceftriaxone 2 g IV daily and improved with regards to his hyponatremia, night sweats, and fatigue. A 2-D echo and transesophageal echo were both negative for vegetation however it was felt that he does suffer from a strep endocarditis. A PICC line was placed and arrangements were made for a total of 42 days course of IV antibiotics. The day of discharge patient understood the plan and follow-up was arranged with infectious disease. . Exam Vital Signs (Last) Date Time Temp Pulse Resp B/P Pulse Ox O2 Delivery O2 Flow Rate FiO2 01/15/17 09:55 36.6 78 18 102/58 98 Room Air 01/12/17 12:15 2.00 Exam Patient was seen and examined on the day of discharge. Test 01/09/17 22:15 01/09/17 22:20 01/09/17 22:45 01/09/17 22:55 Erythrocyte Sedimentation Rate 77mm/hr (0-30) Hold Purple Top Tube Received (Received) Hold Blue Top Tube Received (Received) Phosphorus Level 2.5mg/dL (2.5-4.9) Magnesium Level 2.2mg/dL (1.6-2.6) Total Bilirubin 0.6mg/dL (0.0-1.2) Aspartate Amino Transf (AST/SGOT) 21U/L (0-50) Alanine Aminotransferase (ALT/SGPT) 12U/L (0-44) Alkaline Phosphatase 75U/L (25-160) Troponin T 0.010ug/L (0.0-0.011) Pro-B-Type Natriuretic Peptide 2836pg/mL (0-486) Total Protein 7.6g/dL (6.4-8.4) Albumin 3.3g/dL (3.4-5.0) Procalcitonin 0.18ng/mL (0.00-0.08) Hold Red Top Tube Received (Received) Hold Hammond Top Tube Received (Received) Urine Color Yellow (YELLOW) Urine Appearance Clear (CLEAR,HAZY) Urine pH 6.0 (5.0-8.0) Urine Specific Thomas 1.015 (1.003-1.035) Urine Protein Negativemg/dL (NEG,TRACE) Urine Glucose (UA) Negativemg/dL (NEGATIVE) Urine Ketones Negativemg/dL (NEGATIVE) Urine Occult Blood Small (NEGATIVE) Urine Nitrite Negative (NEGATIVE) Urine Bilirubin Negative (NEGATIVE) Urine Urobilinogen Normalmg/dL (NORMAL) Urine Leukocyte Esterase Negative (NEGATIVE) Urine RBC 3-10/hpf (0-2) Urine WBC 0-5/hpf (0-5) Urine Epithelial Cells Occasional/hpf (NONE-MOD) Urine Crystals None seen (NONE SEEN) Urine Bacteria None/hpf (NONE-FEW) Urine Hyaline Casts None/lpf (NONE) Urine Granular Casts None seen (NONE SEEN) Urine Waxy Casts None seen (NONE SEEN) Urine Red Blood Cell Casts None seen (NONE SEEN) Urine White Blood Cell Casts None seen (NONE SEEN) Urine Mucus None seen (None Seen) Urine Trichomonas None seen (NONE SEEN) Urine Yeast None (NONE SEEN) Urine Culture Reflexed Not indicated Urine Osmolality 573mOs/kH2O (250-1200) Acetaminophen Level 15.0ug/mL Rx (10-25) Lactic Acid Level 0.7mmol/L (0.4-2.0) Test 01/11/17 04:45 01/12/17 04:30 01/14/17 08:32 White Blood Count 7.9th/mm3 (3.8-10.1) Red Blood Count 2.69mil/mm3 (4.40-5.80) Hemoglobin 7.9g/dL (13.8-17.2) Hematocrit 24.5% (41.0-50.0) Mean Corpuscular Volume 91.1fL (81-100) Mean Corpuscular Hemoglobin 29.4pg (27.0-35.0) Mean Corpuscular Hemoglobin Concent 32.2% (32.0-37.0) Red Cell Distribution Width 15.7% (12.3-15.4) Platelet Count 273bil/L (150-400) Neutrophils (%) (Auto) 71.0% (40-74) Lymphocytes (%) (Auto) 21.1% (14-46) Monocytes (%) (Auto) 6.1% (4-12) Eosinophils (%) (Auto) 1.3% (0-5) Basophils (%) (Auto) 0.4% (0-3) Sodium Level 134mEq/L (134-144) Potassium Level 4.6mEq/L (3.5-5.2) Chloride Level 100mEq/L (97-108) Carbon Dioxide Level 23mmol/L (18-29) Blood Urea Nitrogen 17mg/dL (8-27) Creatinine 0.99mg/dL (0.76-1.27) Estimat Glomerular Filtration Rate 76mL/min (>59) Glucose Level 106mg/dL (60-99) Calcium Level 8.8mg/dL (8.5-10.1) Prothrombin Time 18.2sec (8.1-12.5) Prothromb Time International Ratio 1.68ratio Vancomycin Level Trough 11.6mcg/mL Discharge Medications Discharge Medications Aspirin (Aspirin) 81 Mg Tablet 81 MG PO DAILY (Reported) Ceftriaxone Na/Dextrose,Iso (Ceftriaxone 2 gm Piggyback) 2 Gm/50 Ml Froz.piggy 2 GM IV DAILY Prescribed by: HANG COTTON MD Citalopram (Citalopram) 10 Mg Tablet 10 MG PO DAILY (Reported) Diltiazem ER (Cartia XT) 120 Mg Cap.er.24h 120 MG PO DAILY (Reported) Losartan Potassium (Losartan Potassium) 50 Mg Tablet 50 MG PO DAILY (Reported) Multivitamin (Multi Vitamin Daily) 1 Each Tablet 1 EACH PO DAILY (Reported) Rosuvastatin Calcium (Crestor) 5 Mg Tablet 2.5 MG PO every other day (Reported) Ubidecarenone/Vit E Acetate (Co Q-10 100 mg Softgel) 1 Each Capsule 1 EACH PO DAILY (Reported) Warfarin Sodium (Warfarin Sodium) 5 Mg Tablet 5 MG PO DAILY (Reported) Followup Plan Disposition: [facility] with [facility] Discharge Diet: Heart Healthy Discharge Activity: No restrictions Patient Instructions Dr. Post on January 27 at 10 AM as scheduled. [facility] will be coordinated in your ceftriaxone 2 g once a day through February 22 Follow-up Provider: Raúl Estrada MD Follow-up with PCP in: 2 weeks Time spent 45 minutes Hang Cotton MD Jan 15, 2017 10:26
[2017-01-15] MEDS ORDERED: BACL10TA PO (11:36)
[2017-01-15] MEDS ORDERED: HYDR-4003 PO (11:36)
--- NOTE | 2017-01-15 12:55 | NUR ---
Discharge Patient left unit via wheelchair with [employer] and family in a stable condition. IV DC'd intact, single lumen PICC line left in place for home IV antibiotics through [facility], no tele to remove. Discussed new medications of Baclofen, Ceftriaxone and Breese PRN for back spasms and pain -- last taken doses discussed, next due doses if needed discussed -- patient verbalized understanding that he could take Baclofen TID PO as needed and 1 tab Breese Q4 as needed -- family verbalized understanding as well. Per social worker, Ceftriaxone prescription faxed to [facility] who will manage teaching patient PICC line care. All other medications continued with next due doses written and discussed -- patient verbalized understanding. Follow up appointment with PCP scheduled.
--- NOTE | 2017-01-15 13:50 | NUR ---
Social Work: Discharge D: Pt discussed in am rounds. Pt is medically stable for discharge. Orders faxed to [facility]. FRAME [employer] M[employer]IS[employer] OPERATOR confirmed stefani Gabriel that she has everything she needs to see the pt. Pt is being dosed and they will see him tomorrow. FRAME GATE MORTISER OPERATOR met with pt and spouse at bedside. Pt and family agree with plan. Family to transport. No further social work needs at this time. A: Pt who is I at baseline. P: Pt to discharge home with [facility] for IV ABX. ALFA Hathaway
== END 2017-01-15 13:00 | disposition home or self-care (01) | DRG 288 ==
LOC: SED 22:12 → PCC 01-10 00:41
PROVIDERS: ADMIT Hospitalist; ATTEND Hospitalist
PROC: B24BZZ4 Ultrasonography of Heart with Aorta, Transesophageal (ICD-10-PCS; principal; 2017-01-12)
DX: I33.0 Acute and subacute infective endocarditis (principal); G93.41 Metabolic encephalopathy; E87.1 Hypo-osmolality and hyponatremia; R78.81 Bacteremia; B95.4 Other streptococcus as the cause of diseases classified elsewhere; I48.2 Chronic atrial fibrillation; I10 Essential (primary) hypertension; I25.10 Atherosclerotic heart disease of native coronary artery without angina pectoris; E78.5 Hyperlipidemia, unspecified; Z95.0 Presence of cardiac pacemaker; Z87.891 Personal history of nicotine dependence; Z79.01 Long term (current) use of anticoagulants